=== PATIENT | male | born 1950 | race Caucasian/White ===

== ENCOUNTER 2017-10-03 13:30 | Inpatient (IN) | payer MEDICARE, OTHER ==
[~2017-10-03] VITALS: Ht 175.3 cm; Wt 80.8 kg
[2017-10-03 16:44] VITALS: BP 128/70
[2017-10-03] MEDS: oxyCODONE/APAP 5/325MG (PERCOCET 5) TABLET PO PRN (16:57)
[2017-10-03] MEDS: IBUPROFEN 800 MG (MOTRIN) TAB PO SCH (16:57)
[2017-10-03 18:24] VITALS: BP 127/68
[2017-10-03] MEDS ORDERED: BISACODYL 5 MG (DULCOLAX) TABLET PO PRN (19:30)
[2017-10-03] MEDS ORDERED: inSUlin ASPART (NovoLOG) 1 UNIT/0.01 ML (CHARGE PER UNIT) SC SCH (19:30)
--- NOTE | 2017-10-03 20:14 | PM&R Post Admission Assessment ---
Post Admission Physician Asses The preadmission screen agrees with the post admission assessment that the patient is a good candidate for inpatient rehabilitation. The patient will have a comprehensive program of inpatient rehabilitation with a goal of maximizing level of functional independence prior to discharge home with spouse and C. The patient will have PT/OT ninety minutes per day, each discipline, five days a week for 2 weeks for gait, strengthening, conditioning, balance, ADLs, any patient/family/caregiver training as necessary. Speech therapy to do cognitive assessment and treat as indicated. Rehabilitation nursing to assist with bowel, bladder, skin, wound care, medication administration, pain management. Solar Process Engineer to assist with discharge planning, community reentry. SCD's for DVT prophylaxis. He appears to be well motivated to participate in three hours of therapy a day. He should be able to tolerate three hours of therapy a day from a medical standpoint. He should benefit from the three hours of therapy a day. He has a reasonable discharge plan, reasonable discharge rehabilitation goals and a supportive family. He has various comorbidities that need to be closely monitored with medications and treatments adjusted on a daily basis as needed. 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 Risks for this patient include: 1. Fall 2. Fracture 3. DVT 4. Pulmonary embolism 5. Recurrent stroke 6. Skin breakdown 7. Contractures 8. Poorly controlled Knee pain 9. Urinary retention 10. UTI 11. Respiratory infection 12. Aspiration 13.Poorly controlled HTN 14. Poorly controlled DM 15. Worsening back pain 16. Recurrent seizure Estimated Length of Stay: 17 days C CODE 16 Etiologic DX Acute pain rt knee s/p fall with tendinitis Quads Prognosis: Rehab prognosis appears good for goal of discharge home with spouse modified independent to supervision for ADLs and mobility skills. MELANIE AGUILA MD Oct 03, 2017 20:14
[2017-10-03] MEDS: SENNA W/DOCUSATE (SENOKOT S) TABLET PO SCH (21:14)
[2017-10-03] MEDS: OXcarbazepine (TRILEPTAL) 300 MG TAB PO SCH (21:15)
[2017-10-03] MEDS: TERAZOSIN 2 MG (HYTRIN) CAP PO SCH (21:15)
[2017-10-03] MEDS: inSUlin ASPART (NovoLOG) 1 UNIT/0.01 ML (CHARGE PER UNIT) SC SCH (21:15)
[2017-10-03] MEDS: FAMOTIDINE 20 MG (PEPCID) TABLET PO SCH (21:15)
[2017-10-03] MEDS: inSUlin DETERMIR 1 UNIT/0.01 ML (LEVEMIR) CHARGE PER UNIT SQ SCH (21:16)
--- NOTE | 2017-10-04 01:20 | HISTORY AND PHYSICAL ---
DATE OF SERVICE: CHIEF COMPLAINT: Difficulty with walking. 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 The patient was admitted to [facility] in [place]. On 09/28/2017, the patient was seen by the orthopedist. An MRI of the knee was going to be done, but unfortunately the patient had a history of a right total knee replacement. A CT of the knee revealed degenerative joint disease of the left knee and well aligned Rt TKR hardware. The impression was quadriceps strain. The patient was provided with a knee immobilizer and weightbearing as tolerated. The patient had a decline in his functional independence due to all this and is referred to inpatient rehabilitation unit at [facility] for ongoing care. He lives with his spouse in [place]. His PCP is Dr. Jesus Parks in [place]. Currently, he is max assist of 2 for transfer from wheelchair to bed. He has a knee immobilizer on right, but reports difficulty bearing increased weight on his left. He is modified independent for eating and grooming, min assist for upper body dressing, dependent for the lower body dressing and bathing. PAST MEDICAL HISTORY: Left CVA with right hemiparesis, remote seizure disorder, controlled with meds, diabetes mellitus type 2 with long-term use of insulin, essential hypertension, ankylosing spondylitis, on Remicade treatment. PAST SURGICAL HISTORY: Right total knee replacement. ALLERGIES: PENICILLIN. FAMILY HISTORY: Noncontributory. SOCIAL HISTORY: Retired, lives with spouse.Had worked for a [employer] firm prior to stroke REVIEW OF SYSTEMS: Ten-point review of systems significant for weakness on the right, pain right knee with weightbearing, constipation. MEDICATIONS: Allopurinol 100 mg p.o. daily, Plavix 75 mg p.o. daily, Cozaar 50 mg p.o. daily, amlodipine 10 mg p.o. daily, Levemir insulin 7 units subcutaneously each day at bedtime, Humalog t.i.d. a.c., Tagamet 800 mg p.o. every day, Lamictal one tablet p.o. b.i.d., losartan 50 mg p.o. daily, Trileptal 150 mg 2 tablets p.o. b.i.d., Remicade IV infusion every 8 weeks, Hytrin 4 mg at bedtime, ibuprofen 800 mg p.o. t.i.d. with meals, Percocet generic 5/325 one tablet p.o. q. 4 hours p.r.n. pain. PHYSICAL EXAMINATION: GENERAL: Significant for a male appearing his stated age, alert and oriented, in no acute distress. VITAL SIGNS: Within normal limits. He is afebrile. HEENT: Vision, speech, hearing grossly intact. No oral lesion is noted. NECK: Supple without mass. HEART: Regular rhythm. CHEST: Clear. ABDOMEN: Soft, nontender. Bowel sounds present. EXTREMITIES: Right knee is in immobilizer. He has a mild right hemiparesis. MUSCULOSKELETAL: He has functional passive range of motion on the left. NEUROLOGIC: Functional cognition as per speech therapy. Sensation grossly intact to touch. He has mild right hemiparesis. Strength is good left upper limb, left lower limb he has good minus strength. IMPRESSION: 1. Ambulatory dysfunction secondary to late effects of stroke from 2001. 2. Fall with right quadriceps sprain, treated with a knee immobilizer, and weightbearing as tolerated with prior RT TKR DR Dimas [facility] approx 2007. 3. DJD Left knee with CT scan revealing tricompartmental disease. 4. Seizure disorder, controlled with medication. 5. Type 2 diabetes mellitus with long-term use of insulin. 6. Hypertension, controlled with medication. 7. Ankylosing spondylitis, on Remicade treatment IV as per above. 8.Constipation meds adjusted PLAN: The patient will have a comprehensive program of inpatient rehabilitation with goal of maximizing level of functional independence prior to discharge home with spouse, taking into consideration his multiple comorbidities and most recent injury, associated with knee immobilizer and pain control issues. The patient will have PT, OT 90 minutes per day each discipline, 5 days a week for 14 days for gait, strengthening, conditioning, balance, ADLs, any patient family caregiver training necessary, adaptive equipment training necessary. Speech therapy to do cognitive assessment and treat as indicated. Rehabilitation nursing to assist with bowel, bladder, skin care, medication administration, pain management. reference services head for discharge planning, community reentry. Monitor Accu-Cheks q.i.d., before meals and at bedtime and adjust medication as necessary. Therapy with cardiac and fall precautions. Consult Dr. Serrano to assist with medical management for this out-of-town patient. Routine admission labs. ESTIMATED LENGTH OF STAY: 14 days. PROGNOSIS: Rehab prognosis is good for goal of maximizing level of functional independence prior to discharge home with spouse hopefully at prior level of function taking into consideration his right knee orthopedic injury and use of knee immobilizer and pain control. DIET: Carb consistent. CODE STATUS: Full code. FOLLOWUP: With his PCP upon discharge as well as his local orthopedist. Job ID: [id number] DocumentID: [id number] Dictated Date: 10/03/2017 20:26:01 Biochemistry Technician Date: 10/04/2017 01:19:50 Dictated By: MELANIE AGUILA MD MTDD
[2017-10-04 04:39] VITALS: BP 130/70
[2017-10-04] MEDS: inSUlin ASPART (NovoLOG) 1 UNIT/0.01 ML (CHARGE PER UNIT) SC SCH ×4 (05:59→20:49)
[2017-10-04] MEDS: IBUPROFEN 800 MG (MOTRIN) TAB PO SCH ×3 (06:00→17:09)
[2017-10-04 07:14] LABS: BASOPHILS % (AUTO) 1 % (0-10); EOSINOPHILS # (AUTO) 0.1 10^3/uL (0.0-0.3); EOSINOPHILS % (AUTO) 2 % (0-10); HEMATOCRIT 38 % (40-54); HEMOGLOBIN 13.4 G/DL (13.3-17.7); LYMPHOCYTES # (AUTO) 1.8 X 10^3 (1.0-4.0); LYMPHOCYTES % (AUTO) 27 % (12-44); MEAN CORPUSCULAR HEMOGLOBIN 32 PG (25-34); MEAN CORPUSCULAR HGB CONC 35 G/DL (32-36); MEAN CORPUSCULAR VOLUME 89 FL (80-99); MEAN PLATELET VOLUME 9.7 FL (7.4-10.4); MONOCYTES # (AUTO) 0.6 X 10^3 (0.0-1.0); MONOCYTES % (AUTO) 9 % (0-12); NEUTROPHILS # (AUTO) 4.1 X 10^3 (1.8-7.8); NEUTROPHILS % (AUTO) 62 % (42-75); PLATELET COUNT 204 10^3/uL (130-400); RED BLOOD COUNT 4.26 10^6/uL (4.35-5.85); RED CELL DISTRIBUTION WIDTH 11.8 % (10.0-14.5); WHITE BLOOD COUNT 6.6 10^3/uL (4.3-11.0)
[2017-10-04 07:37] LABS: CREATININE SERUM 1.54 MG/DL (0.60-1.30)
[2017-10-04 07:38] LABS: ALBUMIN 3.3 GM/DL (3.2-4.5); BILIRUBIN,TOTAL 0.7 MG/DL (0.1-1.0); CALCIUM 8.9 MG/DL (8.5-10.1); TOTAL PROTEIN 6.6 GM/DL (6.4-8.2)
[2017-10-04] MEDS: ALLOPURINOL 100 MG (ZYLOPRIM) TAB PO SCH (08:09)
[2017-10-04] MEDS: oxyCODONE/APAP 5/325MG (PERCOCET 5) TABLET PO PRN ×4 (08:09→22:51)
[2017-10-04] MEDS: CLOPIDOGREL 75 MG (PLAVIX) TABLET PO SCH (08:09)
[2017-10-04] MEDS: amLODIPine 10 MG (NORVASC) TAB PO SCH (08:09)
[2017-10-04] MEDS: FAMOTIDINE 20 MG (PEPCID) TABLET PO SCH ×2 (08:09→20:58)
[2017-10-04] MEDS: SENNA W/DOCUSATE (SENOKOT S) TABLET PO SCH ×2 (08:09→20:49)
[2017-10-04] MEDS: OXcarbazepine (TRILEPTAL) 300 MG TAB PO SCH ×2 (08:09→20:50)
[2017-10-04] MEDS: LOSARTAN 50 MG (COZAAR) TAB PO SCH (08:09)
--- NOTE | 2017-10-04 08:47 | Consultation ---
History of Present Illness History of Present Illness Patient Consulted On(allen/time) 10/04/17 08:43 Time Seen by Provider: 08:45 History of Present Illness patient previously had a stroke on his right side. 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 Was in the hospital in [facility]. patient had a quadriceps strain. Patient previously had a right knee replacement. Patient getting weak and unable to take care of himself. patient lives in [place] with his Allergies and Home Medications Allergies Coded Allergies: Penicillins (Verified Allergy, Unknown, 10/03/17) Past Mpxpegv-Ockkxb-Bjsxjo Hx Patient Social History Smoking Status: Current Everyday Smoker Type Used: Cigars Recent Foreign Travel: No Contact w/Someone Who Travel: No Recent Infectious Disease Expo: No Immunizations Up To Date Date of Pneumonia Vaccine: Aug 23, 2016 Date of Influenza Vaccine: Jun 29, 2017 Seasonal Allergies Seasonal Allergies: No Surgeries History of Surgeries: Yes (Bilateral hips; Right knee, Right pinky finger) Respiratory History of Respiratory Disorde: Yes Respiratory Disorders: Sleep Apnea Currently Using CPAP: Yes Currently Using BIPAP: No Cardiovascular History of Cardiac Disorders: Yes Neurological History of Neurological Disord: Yes Genitourinary History of Genitourinary Disor: Yes (Decreased kidney function) Gastrointestinal History of Gastrointestinal Di: Yes (Constipation recently ) Musculoskeletal History of Musculoskeletal Dis: Yes Musculoskeletal Disorders: Arthritis, Rheumatoid Arthritis, Contracture Endocrine History of Endocrine Disorders: Yes HEENT History of HEENT Disorders: No (Wears glasses) Cancer History of Cancer: No Psychosocial History of Psychiatric Problem: No Review of Systems-General Constitutional: weakness EENTM: no symptoms reported Respiratory: no symptoms reported Cardiovascular: no symptoms reported Gastrointestinal: no symptoms reported Physical Exam-General Problems Physical Exam Vital Signs Vital Sign - Last 12Hours 10/03/17 16:44 Temp 97.5 Pulse 64 Resp 16 B/P (MAP) 128/70 (89) Pulse Ox 97 O2 Delivery Room Air Capillary Refill : Less Than 3 Seconds General Appearance: WD/WN Eyes: Bilateral Eye Normal Inspection HEENT: normal ENT inspection Neck: non-tender, full range of motion Respiratory: chest non-tender, lungs clear, normal breath sounds, no respiratory distress, no accessory muscle use Gastrointestinal: non tender, soft Assessment/Plan Assessment/Plan Admission Diagnosis/Plan common quadriceps tendon sprain. Previous CVA. Diabetes. Renal insufficiency Clinical Quality Measures DVT/VTE Risk/Contraindication: Risk Factor Score Per Nursin RFS Level Per Nursing on Admit: 4+=Very High WILLIAN NAGEL DO Oct 04, 2017 08:47
--- NOTE | 2017-10-04 09:03 | Physical Therapy Evaluation ---
PT Evaluation-General Medical Diagnosis Admission Date Oct 03, 2017 at 16:15 Medical Diagnosis: R knee strain Onset Date: Sep 28, 2017 Therapy Diagnosis Therapy Diagnosis: Poor bed mobility, functional activity skill, and increased pain Height/Weight Height (Feet): 5 Height (Inches): 9.00 Weight (Pounds): 187 Weight (Ounces): 0.0 Precautions Precautions/Isolations: Fall Prevention, Standard Precautions Weight Bear Status Right Lower Extremity: Right Weight Bearing/Tolerated Left Lower Extremity: Left Full Weight Bearing Referral Physician: Simeon Reason for Referral: Evaluation/Treatment Medical History Pertinent Medical History: Arthritis, CVA, DM, HTN Additional Medical History Left CVA with right hemiparesis, remote seizure disorder, controlled with meds, diabetes mellitus type 2 with long-term use of insulin, essential hypertension, ankylosing spondylitis, on Remicade treatment. Reviewed History: Yes Social History Home: Single Level Current Living Status: Spouse Entry Into Home: Stairs Without Railing (Small step into home) PT Steps Into Home: 1 PT Steps Inside Home: 0 One small step into home Prior/Core FIM Prior Level of Function Functional [place] Measure 0=Not Assessed/NA 4=Minimal Assistance 1=Total Assistance 5=Supervision or Setup 2=Maximal Assistance 6=Modified [place] 3=Moderate Assistance 7=Complete [place] Bed Mobility: 7 Transfers (B,C,W/C) (FIM): 7 Gait: 7 Locomotion: 7 PT Evaluation-Current Subjective Pt is laying in bed pre tx. Pt c/o pain in the R knee. Pain Numeric Pain Scale: 8 Location: Right Location Body Site: Knee Pt/Family Goals Return to home without functional limitation Objective Patient Orientation: Person, Confused (Pt describes living situation and occurrence of injury with confusion), Place Problem Solving: Fair Attachments: Knee Immobilizer ROM/Strength ROM Lower Extremities NT Strenght Lower Extremities LLE: 4/5 in hip flexion, 5/5 in hip abduction and adduction, knee flexion and extension, and ankle dorsiflexion RLE: Not assessed Integumentary/Posture Posture Normal for age Neuromuscular (Tone, Coordination, Reflexes) NT Transfers Functional [place] Measure 0=Not Assessed/NA 4=Minimal Assistance 1=Total Assistance 5=Supervision or Setup 2=Maximal Assistance 6=Modified [place] 3=Moderate Assistance 7=Complete IndependenceIRFPAI Quality Coding Scale 6 Independent with activity with or without an assistive device 5 Patient requires set up or clean up by helper. Patient completes activity by themselves 4 Supervision or touching assist (CGA). [place] provide cues , steadying assist 3 The helper provides less than half the effort to complete the activity 2 The helper provides more than half the effort to complete the activity 1 Dependent. The helper does all the effort to complete an activity 7 Patient refused to complete or attempt activity 9 The patient did not perform the activity before the current illness or injury 88 Not attempted due to Medical conditions or safety concerns Transfers (B, C, W/C) (FIM): 2 Scootin Rollin Roll Left to Right (QC): 2 Supine to/from Sit: 2 Sit to/from Stand: 2 bed t/f WC(FIM only if WC use): 4 Sit to Lying (QC): 2 Lying to Sitting/Side of Bed(Q: 2 Sit to Stand (QC): 2 Chair/Iul-ta-Uogyx Xfer(QC): 3 Car Transfer (QC): 2 Gait Does the Patient Walk?: Yes Mode of Locomotion: Walk Anticipated Mode of Locomotion: Walk Gait (FIM): 2 Distance (FIM): 4=938-83 ft Walk 10 feet (QC): 4 Walk 50 ft with 2 Turns(QC): 4 Walk 150 ft (QC): 88 Walking 10ft/uneven surface-QC: 88 Distance: 50 feet Gait Level of Assist: 4 Gait Persons Needed: 1 Gait Assistive Device: FWW (Arm rest for RUE) Comments/Gait Description Patient did not bear much weight on right leg. Slow, antalgic ambulation. Wheelchair Training Does the Pt Use a Wheelchair?: Yes Wheelchair (FIM): 2 Wheelchair Distance (FIM): 8=328-68 ft Distance: 100 feet Wheelchair Level of Assist: 4 Wheel 50 ft with 2 turns (QC): 3 Wheel 150 ft (QC): 88 Type of Wheelchair: Manual Needs assist with steering Stairs 1 Step (curb) (QC): 88 4 Steps (QC): 88 If not tested on admit;explain Due to pt in knee immobilizer on RLE and safety concerns, stairs were not attempted. Balance Sitting Static: Normal Sitting Dynamic: Normal Standing Static: Fair Standing Dynamic: Fair Picking up an Object (QC): 88 Assessment/Needs Pt c/o increased pain on the RLE during movement and weight-bearing. Pt requires max A during all bed mobility. Pt able to walk 50 feet using FWW with armrest for RUE with CGA. Rehab Potential: Fair PT Short Term Goals Short Term Goals Time Frame: Oct 11, 2017 Transfers (B,C,W/C) (FIM): 3 Gait (FIM): 2 Distance (FIM): 1=823-38 ft Gait Distance Comment: 100 feet with FWW and armrest for RUE Gait Level of Assist: 4 Gait Assistive Device: Walker Platform Wheelchair (FIM): 3 Wheelchair distance (FIM): 3=150 ft Wheelchair Distance: 150 feet Wheelchair Level of Assist: 5 Stairs (FIM): 1 # of Steps: 1 Stairs Level of Assist: 4 PT Retail Delivery Driver Goals Retail Delivery Driver Goals PT Retail Delivery Driver Goals Time Frame: Oct 25, 2017 Transfers (B,C,W/C) (FIM): 5 Sit to Lying (QC): 4 Lying-Sitting on Side/Bed(QC): 4 Sit to Stand (QC): 4 Rollin Roll Left to Right (QC): 4 Chair/Mfi-fi-Qrlxa Xfer(QC): 4 Car Transfer (QC): 4 Does the Patient Walk: Yes Gait (FIM): 5 Distance: 200 feet Walk 10 feet (QC): 4 Walk 10ft-Uneven Surface(QC): 4 Walk 50ft with 2 Turns (QC): 4 Walk 150 ft (QC): 4 Gait Level of Assist: 5 Gait Assistive Device: Walker Platform Does the Pt use WC or Scooter?: Yes Wheelchair (FIM): 6 Distance: 200 feet Wheelchair Level of Assist: 6 Wheel 50 feet with 2 turns (QC: 6 Stairs (FIM): 2 # of Steps: 4 1 Step (curb) (QC): 4 4 Steps (QC): 4 12 Steps (QC): 88 Stairs Level Of Assist: 5 Picking up an Object (QC): 88 PT Plan Problem List Problem List: Activity Tolerance, Functional Strength, Safety, Balance, Gait, Transfer, Bed Mobility, ROM Treatment/Plan Treatment Plan: Continue Plan of Care Treatment Plan: Bed Mobility, Concurrent Therapy, Education, Functional Activity Gregorio, Functional Strength, Group Therapy, Gait, Safety, Therapeutic Exercise, Transfers Treatment Duration: Oct 25, 2017 Frequency: At least 5 of 7 days/Wk (IRF) Estimated Hrs Per Day: 1.5 hours per day Patient and/or Family Agrees t: Yes Safety Risks/Education Patient Education: Gait Training, Transfer Techniques, Steps, Correct Positioning, W/C Management, Disease Process, Safety Issues Teaching Recipient: Patient Teaching Methods: Demonstration, Discussion Response to Teaching: Verbalize Understanding, Return Demonstration, Reinforcement Needed Discharge Recommendations Plan Patient will perform bed mobility and transfer training, balance and endurance training, functional strengthening, stair training, gait training, and education , to improve functional mobility and independence at home. Therapy D/C Recommendations: Home w/ Family Support Equpiment Recommendations-D/C: Front Wheeled Walker (armrest for RUE) Barriers to Progress History of CVA affecting the RUE and RLE Time/GCodes Time In: 800 Time Out: 900 Total Billed Treatment Time: 60 Total Billed Treatment 1 visit 30 min EVM GT 15' FA 15' JACKIE GRIDER PT Oct 04, 2017 09:03
--- NOTE | 2017-10-04 09:42 | ST Cognitive Linguistic Eval ---
Speech Evaluation-General Medical Diagnosis R knee strain Onset Date: Oct 04, 2017 Therapy Diagnosis Therapy Diagnosis: Moderate Expressive Aphasia Precautions Precautions/Isolations: Fall Prevention, Standard Precautions Referral Referring Physician: Dr. Vishnu Hendrix Reason for Referral: Evaluation/Treatment Cognitive, Speech, and Language Evaluation Medical History Pertinent Medical History: Arthritis, CVA, DM, HTN Reviewed History: Yes Speech PLF-Current Status Prior Level of Function The patient denied any new onset of speech, language, and cognitive deficits. Per patient, he experiences difficulty "getting the words out" which has improved each year since his CVA (Left MCA) in 2002. Subjective The patient greeted the clinician appropriately and was agreeable to participation in the speech, language, and cognitive evaluation. Language Eval: Auditory Comprehends Simple Yes/No Ques: Functional Indent/Objects Multiple Wills: Functional Ident/Pics in Multiple Wills: Functional Follows 1-Step Commands: Functional Follows Complex Directions: Functional Follows General Conversations: Functional (The patient does require intermittent redirection to conversational topics.) Language Eval: Verbal Language Completes Spontaneous Greeting: Functional Produces Auto, Serial Info: Functional Imitates Simple Words/Phrases: Mild Word Finding: Moderate Requests Basic Needs: Functional States Basic Personal Info: Functional Expresses Complex Ideas: Functional (The patient requires increased response time throughout conversational exchanges.) Cognitive Patient Orientation The patient is independently oriented to month, day of week, date, and year. Objective Cognitive Domain Attention: Mild Memory: WNL Problem Solving: Mild Objective Oral Motor/Speech Production The patient displays mildly imprecise articulation correlating to reduced right sided labial strength and range of motion. The patient remains 100% intelligible in known and unknown contexts. Impression The patient demonstrates mild to moderate expressive aphasia, most notably in the areas of word-finding. Additionally, mild dysarthria (most consistent with flaccid-type) is displayed with mildly imprecise articulation. While the patient's CVA was over 14 years ago, the patient remains motivated for improvement. Due to this motivation, the speech pathologist has agreed to continue speech and language therapy in attempts to improve word-finding skills and strategies. Communication/Social Cognition Comprehension: 5 Expression: 4 Social Interaction: 5 Problem Solvin Memory: 6 Speech Patient Assess Expression of Ideas/Wants: Exhibits (3) Understanding Vebal Content: Usually Understands (3) Brief Interview-Mental Status: Yes Repetition of Three Words: Three (3) Temporal Orientation: Year: Correct (3) Temporal Orientation: Month: Accurate within 5 days(2) Temporal Orientation: Day: Correct (1) Recall : Wear to say "Sock": Yes, no cue required (2) Recall : Color: Yes, no cue required (2) Recall : Bed: Yes, no cue required (2) Speech Short Term Goals Short Term Goals Short Term Goals 1. The patient will recall and demonstrate three word-finding strategies with mild clinician verbal prompting. 2. The patient will display 80% accuracy with structured word-finding tasks with mild clinician verbal prompting. Time Frame-STG: Ten Days Speech Alf Goals Alf Goals 1. The patient will demonstrate improved expressive communication for increased function and safety with ADL's in the least restrictive setting. Time Frame: Two Weeks Comprehension: 5 Expression: 5 Social Interaction: 6 Problem Solvin Memory: 6 Speech-Plan Treatment Plan Speech Therapy Treatment Plan: Continue Plan of Care Continue skilled speech pathology to target functional word-finding strategies. Treatment Duration: Oct 18, 2017 Frequency: Modified Program (IRF) (Four to five times per day.) Estimated Hrs Per Day: .5 hour per day Rehab Potential: Fair Safety Risks/Education Teaching Recipient: Patient Teaching Methods: Discussion Response to Teaching: Verbalize Understanding Education Topics Provided: Results, Recommendations, Plan of Care Time Speech Therapy Time In: 09:00 Speech Therapy Time Out: 09:15 Total Billed Time: 15 Billed Treatment Time 1 ZELALEM YOUNG Oct 04, 2017 09:42
--- NOTE | 2017-10-04 10:24 | PM & R (SOAP) Progress Note ---
Subjective Time Seen by Provider: 08:15 Subjective/Events-last exam Patient was seen in his rrom this AM Patient Mod to max assist for transfers Slept Ok and adjusting to unit Meds adjusted for constipaion Meds adjusted for DM Current Labs noted Review of Systems Musculoskeletal: leg pain Neurological: Weakness Objective Exam Last Set of Vital Signs Vital Signs Date Time Temp Pulse Resp B/P (MAP) Pulse Ox O2 Delivery O2 Flow Rate FiO2 10/04/17 09:00 Room Air 10/04/17 04:39 97.2 63 16 130/70 (90) 94 Capillary Refill : Less Than 3 Seconds I&O Intake and Output 10/04/17 00:00 Intake Total 222 ml Output Total 300 ml Balance -78 ml Intake Oral 222 ml Output Urine Total 300 ml Daily Weight Change No General: Alert, Oriented X3, Cooperative, No Acute Distress HEENT: Atraumatic, PERRLA, EOMI, Mucous Memb Moist/[place], Other (mild expressive aphasia) Neck: Supple, No JVD Lungs: Clear to Auscultation Heart: Regular Rate Abdomen: Normal Bowel Sounds, Soft, No Tenderness Extremities: No Edema Neuro: Other (Mild rt HP has antigravity strength RT knee in immobilizer) Results Lab Laboratory Tests 10/03/17 16:49: Glucometer 219H 10/03/17 20:40: Glucometer 356H 10/04/17 05:50: Glucometer 222H 10/04/17 06:36: White Blood Count 6.6, Red Blood Count 4.26L, Hemoglobin 13.4, Hematocrit 38L, Mean Corpuscular Volume 89, Mean Corpuscular Hemoglobin 32, Mean Corpuscular Hemoglobin Concent 35, Red Cell Distribution Width 11.8, Platelet Count 204, Mean Platelet Volume 9.7, Neutrophils (%) (Auto) 62, Lymphocytes (%) (Auto) 27, Monocytes (%) (Auto) 9, Eosinophils (%) (Auto) 2, Basophils (%) (Auto) 1, Neutrophils # (Auto) 4.1, Lymphocytes # (Auto) 1.8, Monocytes # (Auto) 0.6, Eosinophils # (Auto) 0.1, Basophils # (Auto) 0.0, Sodium Level 135, Potassium Level 4.0, Chloride Level 102, Carbon Dioxide Level 22, Anion Gap 11, Blood Urea Nitrogen 36H, Creatinine 1.54H, Estimat Glomerular Filtration Rate 46, BUN/ Creatinine Ratio 23, Glucose Level 213H, Calcium Level 8.9, Total Bilirubin 0.7 , Aspartate Amino Transf (AST/SGOT) 20, Alanine Aminotransferase (ALT/SGPT) 16, Alkaline Phosphatase 139H, Total Protein 6.6, Albumin 3.3 Assessment/Plan Assessment Fall with Knee pain Quadriceps strain Prior RT TKR DR Dimas [facility] approx 2008 DJD Left Knee 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
--- NOTE | 2017-10-04 11:27 | Occupational Therapy Eval ---
OT Evaluation-General/PLF Medical Diagnosis Admission Date Oct 03, 2017 at 16:15 Medical Diagnosis: R knee strain Onset Date: Sep 28, 2017 Therapy Diagnosis Therapy Diagnosis: decr self care, decr funct mob, decr R UE funct, decr act reena, decr coord R Height/Weight Height (Feet): 5 Height (Inches): 9.00 Weight (Pounds): 187 Weight (Ounces): 0.0 Precautions Precautions/Isolations: Fall Prevention, Standard Precautions Safety Interventions: None Weight Bear Status Weight Bearing Restriction: Weight Bearing/Tolerated Location Restriction: R LE Referral Physician: Simeon Referral Reason: Evaluation/Treatment Medical History Pertinent Medical History: Arthritis, CVA (2011), DM, HTN, Renal Insufficiency , Smoking Additional Medical History Remote L CVA with R sided weakness 2011. Seizure disorder. Ankylosing spondylitis. Crohn's. ISSA. Bilat total hip replacements, R TKA. CVD Current History Pt was working out with program trainer and R knee gave out. Dx with quadriceps sprain. Has a knee immobilizer that he can wear Social History Home: Single Level Current Living Status: Spouse Entry Into Home: Stairs Without Railing (Small step into home) Steps Into Home: 1 Steps Inside Home: 0 ADL-Prior Level of Function ADL PLOF Comments Pt reported that he was previously able to manage all of his basic ADLs. He used adapted shoe laces but was able to cut food (except steak), feed himself, shower, toilet, dress and didn't use an AD for walking. He still drives. 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 Pain rated 3/10 in R knee and not described. He indicated that he generally asks for pain meds when it gets to 6-7 /10 Appearance Alert, cooperative. Reported he is reluctant to move R leg and stand due to fear of pain. Mental Status/Objective Patient Orientation: Person, Place, Time, Situation Expression: 4 (A little difficult to understand at times) Social Interaction: 5 Problem Solvin Current Glasses/Contacts: Yes Hearing Aids: No Dentures/Partials: Yes (has upper and lower but only wears upper) Hand Dominance: Right Upper Extremity ROM L UE WFL. R UE limited to approx 90 degrees sh flex/abd, WFL elbow flex and ext , pron/sup in mid range. Does not actively use R hand but can pry fingers apart with L hand to hold items Upper Extremity Strength L UE 4+/5. R UE not tested. ADL-Treatment ADL-Current Pt used urinal but spilled it on clothing. Reported he hasn't had BM since Monday and used bedpan Functional [place] Measure 0=Not Assessed/NA 4=Minimal Assistance 1=Total Assistance 5=Supervision or Setup 2=Maximal Assistance 6=Modified [place] 3=Moderate Assistance 7=Complete IndependenceIRFPAI Quality Coding Scale 6 Independent with activity with or without an assistive device 5 Patient requires set up or clean up by helper. Patient completes activity by themselves 4 Supervision or touching assist (CGA). [place] provide cues , steadying assist 3 The helper provides less than half the effort to complete the activity 2 The helper provides more than half the effort to complete the activity 1 Dependent. The helper does all the effort to complete an activity 7 Patient refused to complete or attempt activity 9 The patient did not perform the activity before the current illness or injury 88 Not attempted due to Medical conditions or safety concerns Eating (FIM): 6 (Pt reported that he was able to open packages and feed himself without difficulty. There are some foods that he cannot eat without dentures.) Eating (QC): 6 Grooming (FIM): 5 (Able to soak teeth and rinse mouth with setup. Can brush hair, wash face and hands. He said he usually goes to [employer] in [place] for a shave.) Oral Hygiene (QC): 5 Bathing (FIM): 3 (60% sponge bath) Bathing Location: L Arm, R Arm, L Upper Leg, R Upper Leg, Chest, Abdomen Shower/Bathe Self (QC): 3 Upper Body Dressing (FIM): 5 (Setup to doff/don shirt) Upper Body Dressing (QC): 5 Lower Body Dressing (FIM): 1 (Able to slip shoes off and on with setup. Help to get pants over R foot and L foot but he was then able to pull them up to thighs. Two person max assist sit to stand to pull pants up, once standing with FWW with platform) Lower Body Dressing (QC): 1 On/Off Footwear (QC): 5 Pt was left up in w/c (added cushion), call light and phone present, all needs met. Education OT Patient Education: Modified ADL techniques, Purpose of tx/functional activities, Rehab process, Safety issues, Transfer techniques Teaching Recipient: Patient Teaching Methods: Demonstration, Discussion Response to Teaching: Verbalize Understanding, Return Demonstration, Reinforcement Needed OT Short Term Goals Short Term Goals Time Frame: Oct 13, 2017 Toileting(FIM): 3 Toilet/Commode Transfer(FIM): 3 Shower Transfer(FIM): 3 Additional Short Term Goals: 1-Demonstrate ADL Tasks, 2-Verbalize Understanding , 3-ImproveStrength/Gregorio 1=Demonstrate adherence to instructed precautions during ADL tasks. 2=Patient will verbalize/demonstrate understanding of assistive devices/ modifications for ADL. 3=Patient will improve strength/tolerance for activity to enable patient to perform ADL's. OT Chcf Goals Cosmetic Surgeon Goals Time Frame: Oct 25, 2017 Eating (FIM): 6 Eating (QC): 6 Groomin Oral Hygiene (QC): 6 Bathing(FIM): 6 Shower/Bathe Self (QC): 6 Upper Body Dressing(FIM): 6 Upper Body Dressing (QC): 6 Lower Body Dressing(FIM): 6 Lower Body Dressing (QC): 6 On/Off Footwear (QC): 6 Toileting(FIM): 6 Toileting Hygiene (QC): 6 Transfers (B,C,W/C) (FIM): 6 Toilet/Commode Transfer(FIM): 6 Toilet/Commode Transfer (QC): 6 Shower Transfer(FIM): 6 Comprehension(FIM): 5 Expression (FIM): 5 Social Interaction(FIM): 6 Problem Solving(FIM): 5 Memory(FIM): 6 Additional Goals: 1-Demonstrate ADL Tasks, 2-Verbalize Understanding, 3- ImproveStrength/Gregorio 1=Demonstrate adherence to instructed precautions during ADL tasks. 2=Patient will verbalize/demonstrate understanding of assistive devices/ modifications for ADL. 3=Patient will improve strength/tolerance for activity to enable patient to perform ADL's. OT Education/Plan Problem List/Assessment Assessment: Decreased Activ Tolerance, Decreased Safety Aware, Decreased UE Strength, Dependent Transfers, Impaired Bed Mobility, Impaired Coordination (R UE), Impaired Funct Balance, Impaired Self-Care Skills, Restricted Funct UE ROM Pt would benefit from skilled OT to increase his independence in basic self care to allow him to safely return to his home to live with his and to decrease caregiver burden. Discharge Recommendations Plan/Recommendations: Continue POC Barriers to Progress fear of pain Target Placement home Treatment Plan/Plan of Care Treatment,Training & Education: Yes Patient would benefit from OT for education, treatment and training to promote independence in ADL's, mobility, safety and/or upper extremity function for ADL' s. Plan of Care: ADL Retraining, Functional Mobility, Group Exercise/Act as Ind ( education, exercise, act tolerance, problem solving, funct mobility, communication, socialization), UE Funct Exercise/Act, UE Neuromus Re-Ed/Coord Treatment Duration: Oct 25, 2017 Frequency: At least 5 of 7 days/Wk (IRF) Estimated Hrs Per Day: 1.5 hours per day (1-25 to 1.5) Agreement: Yes Rehab Potential: Good Time/GCodes Start Time: 09:45 Stop Time: 11:03 Total Time Billed (hr/min): 78 Billed Treatment Time visit, evaluation high intensity 18 minutes, ADL 60 minutes TERE DEL CASTILLO OT Oct 04, 2017 11:27
[2017-10-04] MEDS ORDERED: CLOP75TA69 PO (13:32)
[2017-10-04] MEDS ORDERED: OXCA150T PO (13:32)
[2017-10-04] MEDS ORDERED: INSU100V5 SQ (13:32)
[2017-10-04] MEDS ORDERED: AMLO10TA2 PO (13:32)
[2017-10-04] MEDS ORDERED: INFL100V IV (13:32)
[2017-10-04] MEDS ORDERED: CIME800T63 PO (13:32)
[2017-10-04] MEDS ORDERED: LOSA50TA36 PO (13:32)
[2017-10-04] MEDS ORDERED: LAMO100T PO (13:32)
[2017-10-04] MEDS ORDERED: ALLO100T PO (13:32)
[2017-10-04] MEDS ORDERED: TERA2CAP4 PO (13:32)
--- NOTE | 2017-10-04 15:06 | Therapy Group Daily Note ---
Therapy Daily Group Note Patient Education Topic Other List Below (memory strategies) Exercises LE Seated Exercise, UE Exercise Other/Notes Pt transported via w/c [facility] OT/PT group consisted of introductions (name, place living, worst forgotten moment), socialization, UE/LE seated exercises, memory strategy education, memory activity, ARU description and expectations. Pt appropriately introduced self. Pt then was able to complete UE/LE seated exercises, difficulty moving R UE/LE during exercises. Pt verbalized understanding of visual strategies for memory and gave a description of what he used for a memory strategy at home. Pt then participated in memory activity and was able to find 1 match. Pt transported back to room via w/c and transferred back to bed. Call light/phone in reach. All needs met in room. Start Time: 13:00 Stop Time: 14:20 Total Billed Treatment Time: 80 Total Billed Treatment 1-GRP RU BURGESS Oct 04, 2017 15:06
[2017-10-04 18:35] VITALS: BP 146/76
[2017-10-04] MEDS: inSUlin DETERMIR 1 UNIT/0.01 ML (LEVEMIR) CHARGE PER UNIT SQ SCH (20:49)
[2017-10-04] MEDS: TERAZOSIN 2 MG (HYTRIN) CAP PO SCH (20:49)
[2017-10-05 05:08] VITALS: BP 135/74
[2017-10-05] MEDS: IBUPROFEN 800 MG (MOTRIN) TAB PO SCH ×3 (05:25→16:37)
[2017-10-05] MEDS: inSUlin ASPART (NovoLOG) 1 UNIT/0.01 ML (CHARGE PER UNIT) SC SCH ×4 (05:25→21:31)
[2017-10-05] MEDS: MILK OF MAGNESIA 400 MG/5 ML 30 ML UDC PO PRN (05:25)
[2017-10-05] MEDS: SENNA W/DOCUSATE (SENOKOT S) TABLET PO SCH ×2 (07:41→21:31)
[2017-10-05] MEDS: CLOPIDOGREL 75 MG (PLAVIX) TABLET PO SCH (07:41)
[2017-10-05] MEDS: oxyCODONE/APAP 5/325MG (PERCOCET 5) TABLET PO PRN ×4 (07:41→22:24)
[2017-10-05] MEDS: OXcarbazepine (TRILEPTAL) 300 MG TAB PO SCH ×2 (07:41→21:31)
[2017-10-05] MEDS: ALLOPURINOL 100 MG (ZYLOPRIM) TAB PO SCH (07:41)
[2017-10-05] MEDS: amLODIPine 10 MG (NORVASC) TAB PO SCH (07:41)
[2017-10-05] MEDS: LOSARTAN 50 MG (COZAAR) TAB PO SCH (07:42)
--- NOTE | 2017-10-05 08:03 | Progress Note (SOAP) ---
Subjective Time Seen by Provider: 08:00 Subjective/Events-last exam quadriceps tendon sprain. CVA. patient feels that this improves each day Objective Exam Vital Signs Date Time Temp Pulse Resp B/P (MAP) Pulse Ox O2 Delivery O2 Flow Rate FiO2 10/05/17 05:08 97.3 60 16 135/74 (94) 96 Room Air 10/04/17 18:35 98.5 67 16 146/76 (99) 96 Room Air 10/04/17 09:00 Room Air I & O 10/05/17 07:00 Intake Total 1480 ml Output Total 2000 ml Balance -520 ml Capillary Refill : Less Than 3 Seconds General Appearance: WD/WN HEENT: Normal ENT Inspection Neck: Normal Inspection Respiratory: No Accessory Muscle Use, No Respiratory Distress Cardiovascular: Regular Rate, Rhythm Results Lab Laboratory Tests 10/04/17 11:04: Glucometer 311H 10/04/17 16:06: Glucometer 273H 10/04/17 20:39: Glucometer 257H 10/05/17 04:55: Glucometer 193H Assessment/Plan Assessment/Plan Assess & Plan/Chief Complaint common quadriceps tendon sprain. Previous CVA. Diabetes. Renal insufficiency. . 10/05/17 , Quadriceps tendon sprain. Previous CVA. Diabetes. Renal insufficiency. sugars are running high. increase Levemir Clinical Quality Measures DVT/VTE Risk/Contraindication: Risk Factor Score Per Nursin RFS Level Per Nursing on Admit: 4+=Very High WILLIAN NAGEL DO Oct 05, 2017 08:03
--- NOTE | 2017-10-05 09:00 | Physical Therapy Daily Note ---
PT Daily Note-Current Subjective Pt is in bed pre tx and agrees to PT. Pt knee immobilizer was put on before getting out of bed. Appearance Pt is sitting in [facility] post tx with phone and remote within reach. Mental Status Patient Orientation: Person, Place, Time, Situation Attachments: Knee Immobilizer Transfers Functional [place] Measure 0=Not Assessed/NA 4=Minimal Assistance 1=Total Assistance 5=Supervision or Setup 2=Maximal Assistance 6=Modified [place] 3=Moderate Assistance 7=Complete IndependenceIRFPAI Quality Coding Scale 6 Independent with activity with or without an assistive device 5 Patient requires set up or clean up by helper. Patient completes activity by themselves 4 Supervision or touching assist (CGA). [place] provide cues , steadying assist 3 The helper provides less than half the effort to complete the activity 2 The helper provides more than half the effort to complete the activity 1 Dependent. The helper does all the effort to complete an activity 7 Patient refused to complete or attempt activity 9 The patient did not perform the activity before the current illness or injury 88 Not attempted due to Medical conditions or safety concerns Transfers (B, C, W/C) (FIM): 3 Scootin Rollin Supine to/from Sit: 3 Sit to/from Stand: 3 Bed to/from Chair: 3 Pt requires mod A for bed mobility and transfers. Weight Bearing Right Lower Extremity: Right Weight Bearing/Tolerated Left Lower Extremity: Left Full Weight Bearing Gait Training Does the Patient Walk?: Yes Gait (FIM): 4 Distance: 150 feet Gait Level of Assist: 4 Gait Persons Needed: 1 Gait Assistive Device: FWW Pt wore knee immobilizer during walking to therapy gym. More weight bearing on right leg. Wheelchair Training Does the Pt Use a Wheelchair?: Yes Wheelchair (FIM): 2 Distance: 50 feet Wheelchair Level of Assist: 4 Type of Wheelchair: Manual Exercises Seated Therapy Exercises: Ankle pumps (20 x1 isatu), Long arc quads (10 x1 isatu), Hip flexion (10 x1 isatu), Hamstring Curls (10 x1 isatu), Hip abd/add (10 x1 isatu) Treatments Pt participated in bed mobility, transfers, gait training, and LE strengthening. Assessment Current Status: Fair Progress Pt requires mod A in bed mobility and transfers, and requires min A with gait using a FWW. During seated hip flexion of the RLE, pt demonstrates associated movement of the RUE with shoulder elevation. Mcfp through treatment patient wanted to get rid of the knee immobilizer and he was able to bend his knee and perform sit to stand better. PT Short Term Goals Short Term Goals Time Frame: Oct 11, 2017 Gait (FIM): 2 Distance (FIM): 9=990-75 ft Gait Distance Comment: 100 feet with FWW and armrest for RUE Gait Level of Assist: 4 Gait Assistive Device: Walker Platform Wheelchair (FIM): 3 Wheelchair distance (FIM): 3=150 ft Wheelchair Distance: 150 feet Wheelchair Level of Assist: 5 Stairs (FIM): 1 # of Steps: 1 Stairs Level of Assist: 4 PT Event Mgr Goals Event Mgr Goals PT Event Mgr Goals Time Frame: Oct 25, 2017 Transfers (B,C,W/C) (FIM): 5 Sit to Lying (QC): 4 Lying-Sitting on Side/Bed(QC): 4 Sit to Stand (QC): 4 Rollin Roll Left to Right (QC): 4 Chair/Dpz-pr-Fswhp Xfer(QC): 4 Car Transfer (QC): 4 Does the Patient Walk: Yes Gait (FIM): 5 Distance: 200 feet Walk 10 feet (QC): 4 Walk 10ft-Uneven Surface(QC): 4 Walk 50ft with 2 Turns (QC): 4 Walk 150 ft (QC): 4 Gait Level of Assist: 5 Gait Assistive Device: Walker Platform Does the Pt use WC or Scooter?: Yes Wheelchair (FIM): 6 Distance: 200 feet Wheelchair Level of Assist: 6 Wheel 50 feet with 2 turns (QC: 6 Stairs (FIM): 2 # of Steps: 4 1 Step (curb) (QC): 4 4 Steps (QC): 4 12 Steps (QC): 88 Stairs Level Of Assist: 5 Picking up an Object (QC): 88 PT Plan Problem List Problem List: Activity Tolerance, Functional Strength, Safety, Balance, Gait, Transfer, Bed Mobility, ROM Treatment/Plan Treatment Plan: Continue Plan of Care Treatment Plan: Bed Mobility, Concurrent Therapy, Education, Functional Activity Gregorio, Functional Strength, Group Therapy, Gait, Safety, Therapeutic Exercise, Transfers Treatment Duration: Oct 25, 2017 Frequency: At least 5 of 7 days/Wk (IRF) Estimated Hrs Per Day: 1.5 hours per day Patient and/or Family Agrees t: Yes Safety Risks/Education Patient Education: Gait Training, Transfer Techniques, Correct Positioning, W/ C Management, Safety Issues Teaching Recipient: Patient Teaching Methods: Demonstration, Discussion Response to Teaching: Reinforcement Needed Time/GCodes Time In: 800 Time Out: 900 Total Billed Treatment Time: 60 Total Billed Treatment 1 visit 15 min GT 15 min FA EX 30' JACKIE GRIDER PT Oct 05, 2017 09:00
--- NOTE | 2017-10-05 13:12 | PM & R (SOAP) Progress Note ---
Subjective Time Seen by Provider: 08:15 Subjective/Events-last exam Patient was seen in his room this AM Adjusting well to unit Appreciate DR scott note and orders Insulin dose adjusted Patient Mod assist for transfers Review of Systems Musculoskeletal: leg pain Neurological: Weakness Objective Exam Last Set of Vital Signs Vital Signs Date Time Temp Pulse Resp B/P (MAP) Pulse Ox O2 Delivery O2 Flow Rate FiO2 10/05/17 09:00 Room Air 10/05/17 05:08 97.3 60 16 135/74 (94) 96 Capillary Refill : Less Than 3 Seconds I&O Intake and Output 10/05/17 00:00 Intake Total 1330 ml Output Total 1600 ml Balance -270 ml Intake Oral 1330 ml Output Urine Total 1600 ml General: Alert, Oriented X3, Cooperative, No Acute Distress HEENT: Atraumatic, PERRLA, EOMI, Mucous Memb Moist/[place], Other (mild expressive aphasia) Neck: Supple, No JVD Lungs: Clear to Auscultation Heart: Regular Rate Abdomen: Normal Bowel Sounds, Soft, No Tenderness Extremities: No Edema Neuro: Other (Mild rt HP has antigravity strength RT knee in immobilizer) Results Lab Laboratory Tests 10/03/17 16:49: Glucometer 219H 10/03/17 20:40: Glucometer 356H 10/04/17 05:50: Glucometer 222H 10/04/17 06:36: White Blood Count 6.6, Red Blood Count 4.26L, Hemoglobin 13.4, Hematocrit 38L, Mean Corpuscular Volume 89, Mean Corpuscular Hemoglobin 32, Mean Corpuscular Hemoglobin Concent 35, Red Cell Distribution Width 11.8, Platelet Count 204, Mean Platelet Volume 9.7, Neutrophils (%) (Auto) 62, Lymphocytes (%) (Auto) 27, Monocytes (%) (Auto) 9, Eosinophils (%) (Auto) 2, Basophils (%) (Auto) 1, Neutrophils # (Auto) 4.1, Lymphocytes # (Auto) 1.8, Monocytes # (Auto) 0.6, Eosinophils # (Auto) 0.1, Basophils # (Auto) 0.0, Sodium Level 135, Potassium Level 4.0, Chloride Level 102, Carbon Dioxide Level 22, Anion Gap 11, Blood Urea Nitrogen 36H, Creatinine 1.54H, Estimat Glomerular Filtration Rate 46, BUN/ Creatinine Ratio 23, Glucose Level 213H, Calcium Level 8.9, Total Bilirubin 0.7 , Aspartate Amino Transf (AST/SGOT) 20, Alanine Aminotransferase (ALT/SGPT) 16, Alkaline Phosphatase 139H, Total Protein 6.6, Albumin 3.3 10/04/17 11:04: Glucometer 311H 10/04/17 16:06: Glucometer 273H 10/04/17 20:39: Glucometer 257H 10/05/17 04:55: Glucometer 193H 10/05/17 11:06: Glucometer 311H Assessment/Plan Assessment Fall with Knee pain Quadriceps strain Prior RT TKR DR Dimas [facility] approx 2007 DJD Left Knee 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
--- NOTE | 2017-10-05 13:19 | Individualized Plan of Care ---
Individualized Plan of Care Rehab Nursing IPOC Order Admission Date Oct 03, 2017 at 16:15 Current Orders Orders Admission-Acute Rehab Unit (10/03/17 14:23) Vital Signs: Routine 08,16,00 (10/03/17 14:23) Help Desk Technician-Inpt Rehab (10/03/17 14:23) Rehab Nursing Orders-Ipoc (10/03/17 14:23) Physical Therapy Rehab Orders (10/03/17 14:23) Occupational Therapy Rehab Ord (10/03/17 14:23) Speech Therapy Rehab Orders (10/03/17 14:23) Cho 60g/M 1snack (16-2000 Fitz) (10/03/17 Dinner) Turn And Reposition Q2HR (10/03/17 14:23) Intake & Output 06,14,22 (10/03/17 14:23) Weight Bearing Status (10/03/17 14:23) Precautions (Aru) (10/03/17 14:23) Weekly Weight (Lbs) WEEK (10/03/17 14:23) Tizanidine Tablet (Zanaflex Tablet) (10/03/17 14:30) Ibuprofen Tablet (Motrin Tablet) (10/03/17 17:00) Insulin Determir (Per Unit) (Levemir (Pe (10/03/17 21:00) Oxycodone/Apap 5/325mg Tablet (Percocet (10/03/17 14:30) Allopurinol Tablet (Zyloprim Tablet) (10/04/17 09:00) Famotidine Tablet (Pepcid Tablet) (10/03/17 21:00) Clopidogrel Tablet (Plavix Tablet) (10/04/17 09:00) Lamotrigine Tablet (Lamictal Tablet) (10/03/17 21:00) Losartan Tablet (Cozaar Tablet) (10/04/17 09:00) Oxcarbazepine Tablet (Trileptal Tablet) (10/03/17 21:00) Terazosin Capsule (Hytrin Capsule) (10/03/17 21:00) Consult Physician (10/03/17 14:42) Accucheck Achs ACHS (10/03/17 14:43) Amlodipine Tablet (Norvasc Tablet) (10/04/17 09:00) Follow-Up Appointment (10/03/17 17:50) Follow-Up Appointment (10/03/17 17:54) Senna S Tablet (Senokot S Tablet) (10/03/17 21:00) Magnesium Hydroxide Oral Susp (Mom Oral (10/03/17 19:30) Bisacodyl Tablet (Dulcolax Tablet) (10/03/17 19:30) Insulin Aspart (Novolog) (Novolog (Charg (10/03/17 19:30) Insulin Aspart (Novolog) (Novolog (Charg (10/03/17 21:00) Cbc With Automated Diff (10/04/17 06:00) Comprehensive Metabolic Panel (10/04/17 06:00) Patient Visit (10/04/17 ) Speech Sound Lang Comp (10/04/17 ) Famotidine Tablet (Pepcid Tablet) (10/04/17 21:00) Patient Visit (10/04/17 ) Patient Visit (10/04/17 ) Gait Training, Ea 15 Min (10/04/17 ) Functional Activities, Ea 15 (10/04/17 ) Pt Eval Moderate Complexity (10/04/17 ) Insulin Determir (Per Unit) (Levemir (Pe (10/05/17 21:00) Rehab Nursing Orders: Diseage Management, Edu in Press Rel Techn, Hydration Management, Nutrition Management, Pain Management Other Nursing Orders: Monitor for urinary retention and adjust meds for constipation as needed PT IPOC Problem List: Activity Tolerance, Functional Strength, Safety, Balance, Gait, Transfer, Bed Mobility, ROM Treatment Plan: Continue Plan of Care Bed Mobility, Concurrent Therapy, Education, Functional Activity Gregorio, Functional Strength, Group Therapy, Gait, Safety, Therapeutic Exercise, Transfers Treatment Duration: Oct 25, 2017 Frequency: At least 5 of 7 days/Wk (IRF) Estimated Hrs Per Day: 1.5 hours per day OT IPOC Problems: Decreased Activ Tolerance, Decreased Safety Aware, Decreased UE Strength, Dependent Transfers, Impaired Bed Mobility, Impaired Coordination (R UE), Impaired Funct Balance, Impaired Self-Care Skills, Restricted Funct UE ROM OT Treatment, Training and Edu: Yes OT Problems Pt would benefit from skilled OT to increase his independence in basic self care to allow him to safely return to his home to live with his and to decrease caregiver burden. Plan of Care: ADL Retraining, Functional Mobility, Group Exercise/Act as Ind ( education, exercise, act tolerance, problem solving, funct mobility, communication, socialization), UE Funct Exercise/Act, UE Neuromus Re-Ed/Coord Treatment Duration: Oct 25, 2017 Frequency: At least 5 of 7 days/Wk (IRF) Estimated Hrs Per Day: 1.5 hours per day (1-25 to 1.5) [facility] Speech Therapy Treatment Plan: Continue Plan of Care Treatment Duration: Oct 18, 2017 Frequency: Modified Program (IRF) (Four to five times per day.) Estimated Hrs Per Day: .5 hour per day Help Desk Technician/Case Mgmt Help Desk Technician/Case Managemen: Discharge Planning, Patient/Family Counseling Physician [facility] Medical Issues being managed closely and that require the 24 hour availability of a physician: RT knee pain DM Constipation HTN Medical Issues: Bowel/Bladder Function, DVT Prophylaxis, Falls Precautions, Infection Protection, Pain Management, Other (List) (as per above) Brief Synthesis of Preadmission Screen, Post-Admission Evaluation, and Therapy Evaluations:66 yo male with PMH significant for Left CVa with mild rt HP who had been fairly Independent who injured his right knee while doing exercise with personal driver seen BY Ortho at OSH who felt it was a Quad strain and ordered Knee immobilizer and WBAT.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
--- NOTE | 2017-10-05 15:14 | Occupational Ther Daily Note ---
OT Current Status-Daily Note Subjective Pt seen in room, up in w/c, agreeable to OT. Did not want to shower today but agreed to do so tomorrow. Pt reported R knee hurt when he got up but did not rate it. Appearance Alert, cooperative, speaks very slowly and deliberately Mental Status/Objective Functional [place] Measure 0=Not Assessed/NA 4=Minimal Assistance 1=Total Assistance 5=Supervision or Setup 2=Maximal Assistance 6=Modified [place] 3=Moderate Assistance 7=Complete [place] ADL-Treatment All ADLs took longer than usual. Pt left up in w/c, ordering his lunch. All needs met. Functional [place] Measure 0=Not Assessed/NA 4=Minimal Assistance 1=Total Assistance 5=Supervision or Setup 2=Maximal Assistance 6=Modified [place] 3=Moderate Assistance 7=Complete IndependenceIRFPAI Quality Coding Scale 6 Independent with activity with or without an assistive device 5 Patient requires set up or clean up by helper. Patient completes activity by themselves 4 Supervision or touching assist (CGA). [place] provide cues , steadying assist 3 The helper provides less than half the effort to complete the activity 2 The helper provides more than half the effort to complete the activity 1 Dependent. The helper does all the effort to complete an activity 7 Patient refused to complete or attempt activity 9 The patient did not perform the activity before the current illness or injury 88 Not attempted due to Medical conditions or safety concerns Grooming (FIM): 5 (Pt cleaned teeth and brushed hair at sink, w/c level, with setup to open denture silver cleaner. Washed face and hands during sponge bath.) Bathing (FIM): 1 (Able to lean forward to wash feet. Uses R hand to wash L arm. Two person assist to stand to wash bottom, FWW. Sponge bath) Bathing Location: L Arm, R Arm, L Upper Leg, R Upper Leg, L Lower Leg ( including foot), R Lower Leg (including foot), Chest, Abdomen, Perineal Area Upper Body (FIM): 5 (Doffed and donned shirt with setup) Lower Body Dressing (FIM): 1 (Pt able to get pants on over feet with min assist. Min assist to put slippers on. Two person assist needed to stand to pull pants down and up, FWW) Education OT Patient Education: Modified ADL techniques, Progress toward Goal/Update tx plan, Purpose of tx/functional activities, Transfer techniques Teaching Recipient: Patient Teaching Methods: Demonstration, Discussion Response to Teaching: Verbalize Understanding, Return Demonstration, Reinforcement Needed OT Short Term Goals Short Term Goals Time Frame: Oct 13, 2017 Toileting(FIM): 3 Toilet/Commode Transfer(FIM): 3 Shower Transfer(FIM): 3 Additional Short Term Goals: 1-Demonstrate ADL Tasks, 2-Verbalize Understanding , 3-ImproveStrength/Gregorio 1=Demonstrate adherence to instructed precautions during ADL tasks. 2=Patient will verbalize/demonstrate understanding of assistive devices/ modifications for ADL. 3=Patient will improve strength/tolerance for activity to enable patient to perform ADL's. OT Platemaker Goals Platemaker Goals Time Frame: Oct 25, 2017 Eating (FIM): 6 Eating (QC): 6 Groomin Oral Hygiene (QC): 6 Bathing(FIM): 6 Shower/Bathe Self (QC): 6 Upper Body Dressing(FIM): 6 Upper Body Dressing (QC): 6 Lower Body Dressing(FIM): 6 Lower Body Dressing (QC): 6 On/Off Footwear (QC): 6 Toileting(FIM): 6 Toileting Hygiene (QC): 6 Transfers (B,C,W/C) (FIM): 6 Toilet/Commode Transfer(FIM): 6 Toilet/Commode Transfer (QC): 6 Shower Transfer(FIM): 6 Comprehension(FIM): 5 Expression (FIM): 5 Social Interaction(FIM): 6 Problem Solving(FIM): 5 Memory(FIM): 6 Additional Goals: 1-Demonstrate ADL Tasks, 2-Verbalize Understanding, 3- ImproveStrength/Gregorio 1=Demonstrate adherence to instructed precautions during ADL tasks. 2=Patient will verbalize/demonstrate understanding of assistive devices/ modifications for ADL. 3=Patient will improve strength/tolerance for activity to enable patient to perform ADL's. OT Education/Plan Problem List/Assessment Pt would benefit from skilled OT to increase his independence in basic self care to allow him to safely return to his home to live with his and to decrease caregiver burden. Discharge Recommendations Plan/Recommendations: Continue POC Treatment Plan/Plan of Care Patient would benefit from OT for education, treatment and training to promote independence in ADL's, mobility, safety and/or upper extremity function for ADL' s. Plan of Care: ADL Retraining, Functional Mobility, Group Exercise/Act as Ind ( education, exercise, act tolerance, problem solving, funct mobility, communication, socialization), UE Funct Exercise/Act, UE Neuromus Re-Ed/Coord Treatment Duration: Oct 25, 2017 Frequency: At least 5 of 7 days/Wk (IRF) Estimated Hrs Per Day: 1.5 hours per day (1-25 to 1.5) Agreement: Yes Rehab Potential: Fair Time/GCodes Start Time: 09:00 Stop Time: 10:00 Total Time Billed (hr/min): 60 Billed Treatment Time visit, ADL 60 minutes TERE DEL CASTILLO OT Oct 05, 2017 15:14
--- NOTE | 2017-10-05 15:15 | Occupational Ther Daily Note ---
OT Current Status-Daily Note Subjective Pt seen in room, up in w/c, agreeable to OT. Pt thought he might need to have BM. Appearance Alert, cooperative Mental Status/Objective Functional [place] Measure 0=Not Assessed/NA 4=Minimal Assistance 1=Total Assistance 5=Supervision or Setup 2=Maximal Assistance 6=Modified [place] 3=Moderate Assistance 7=Complete [place] ADL-Treatment Pt transferred to [facility], two person assist, walking a few feet from w/c with min assist. Discussed toileting setup at home and equipment needs for here. Pt requested to sit longer on toilet so left up with call light, nursing notified. Functional [place] Measure 0=Not Assessed/NA 4=Minimal Assistance 1=Total Assistance 5=Supervision or Setup 2=Maximal Assistance 6=Modified [place] 3=Moderate Assistance 7=Complete IndependenceIRFPAI Quality Coding Scale 6 Independent with activity with or without an assistive device 5 Patient requires set up or clean up by helper. Patient completes activity by themselves 4 Supervision or touching assist (CGA). [place] provide cues , steadying assist 3 The helper provides less than half the effort to complete the activity 2 The helper provides more than half the effort to complete the activity 1 Dependent. The helper does all the effort to complete an activity 7 Patient refused to complete or attempt activity 9 The patient did not perform the activity before the current illness or injury 88 Not attempted due to Medical conditions or safety concerns Toileting (FIM): 1 (Two person help needed to manage clothing and hygiene. BSC , FWW with platform) Toileting Hygiene (QC): 1 Toilet/Commode Transfer (FIM): 1 (Two person assist needed to get on and off BSC, FWW with platform. ) Toilet Transfer (QC): 1 Education OT Patient Education: Modified ADL techniques, Purpose of tx/functional activities, Transfer techniques Teaching Recipient: Patient Teaching Methods: Demonstration Response to Teaching: Return Demonstration OT Short Term Goals Short Term Goals Time Frame: Oct 13, 2017 Toileting(FIM): 3 Toilet/Commode Transfer(FIM): 3 Shower Transfer(FIM): 3 Additional Short Term Goals: 1-Demonstrate ADL Tasks, 2-Verbalize Understanding , 3-ImproveStrength/Gregorio 1=Demonstrate adherence to instructed precautions during ADL tasks. 2=Patient will verbalize/demonstrate understanding of assistive devices/ modifications for ADL. 3=Patient will improve strength/tolerance for activity to enable patient to perform ADL's. OT Skilled Nursing Goals Skilled Nursing Goals Time Frame: Oct 25, 2017 Eating (FIM): 6 Eating (QC): 6 Groomin Oral Hygiene (QC): 6 Bathing(FIM): 6 Shower/Bathe Self (QC): 6 Upper Body Dressing(FIM): 6 Upper Body Dressing (QC): 6 Lower Body Dressing(FIM): 6 Lower Body Dressing (QC): 6 On/Off Footwear (QC): 6 Toileting(FIM): 6 Toileting Hygiene (QC): 6 Transfers (B,C,W/C) (FIM): 6 Toilet/Commode Transfer(FIM): 6 Toilet/Commode Transfer (QC): 6 Shower Transfer(FIM): 6 Comprehension(FIM): 5 Expression (FIM): 5 Social Interaction(FIM): 6 Problem Solving(FIM): 5 Memory(FIM): 6 Additional Goals: 1-Demonstrate ADL Tasks, 2-Verbalize Understanding, 3- ImproveStrength/Gregorio 1=Demonstrate adherence to instructed precautions during ADL tasks. 2=Patient will verbalize/demonstrate understanding of assistive devices/ modifications for ADL. 3=Patient will improve strength/tolerance for activity to enable patient to perform ADL's. OT Education/Plan Problem List/Assessment Pt would benefit from skilled OT to increase his independence in basic self care to allow him to safely return to his home to live with his and to decrease caregiver burden. Discharge Recommendations Plan/Recommendations: Continue POC Treatment Plan/Plan of Care Patient would benefit from OT for education, treatment and training to promote independence in ADL's, mobility, safety and/or upper extremity function for ADL' s. Plan of Care: ADL Retraining, Functional Mobility, Group Exercise/Act as Ind ( education, exercise, act tolerance, problem solving, funct mobility, communication, socialization), UE Funct Exercise/Act, UE Neuromus Re-Ed/Coord Treatment Duration: Oct 25, 2017 Frequency: At least 5 of 7 days/Wk (IRF) Estimated Hrs Per Day: 1.5 hours per day (1-25 to 1.5) Agreement: Yes Rehab Potential: Fair Time/GCodes Start Time: 13:30 Stop Time: 14:00 Total Time Billed (hr/min): 30 Billed Treatment Time visit, 30 minutes ADL TREE DEL CASTILLO OT Oct 05, 2017 15:15
--- NOTE | 2017-10-05 16:19 | Physical Therapy Daily Note ---
PT Daily Note-Current Subjective Pt sitting in [facility] upon arrival. Pt reports feeling very fatigued and weak. Pt requesting return to Supine in bed and Supine Ex for PT tx. Pain Location: Left Location Body Site: Knee Pain Description: Ache, Tightness Comment: Pt doesn't rate, based on facial grimaces. Mental Status Patient Orientation: Person, Place, Situation Transfers Functional [place] Measure 0=Not Assessed/NA 4=Minimal Assistance 1=Total Assistance 5=Supervision or Setup 2=Maximal Assistance 6=Modified [place] 3=Moderate Assistance 7=Complete IndependenceIRFPAI Quality Coding Scale 6 Independent with activity with or without an assistive device 5 Patient requires set up or clean up by helper. Patient completes activity by themselves 4 Supervision or touching assist (CGA). [place] provide cues , steadying assist 3 The helper provides less than half the effort to complete the activity 2 The helper provides more than half the effort to complete the activity 1 Dependent. The helper does all the effort to complete an activity 7 Patient refused to complete or attempt activity 9 The patient did not perform the activity before the current illness or injury 88 Not attempted due to Medical conditions or safety concerns Scootin Rollin Roll Left to Right (QC): 3 Supine to/from Sit: 3 Sit to/from Stand: 3 Sit to Lying (QC): 3 Sit to Stand (QC): 3 Chair/Ezr-xb-Hewkj Xfer(QC): 3 Bed to/from Chair: 3 Weight Bearing Right Lower Extremity: Right Weight Bearing/Tolerated Left Lower Extremity: Left Full Weight Bearing Exercises Supine Ex: Bridging, Heel Slides Supine Reps: 15 Treatments Pt transfers from [facility] to EOB via SPT at [facility]. Pt transfers from EOB to Supine in bed at [facility]. Pt completes Supine Ex with emphasis on deep breathing instead of holding breath. Pt rests Supine in bed at end of tx with all needs met. Assessment Current Status: Fair Progress Pt has difficulty following instructions given as well as pt is still [facility] with transfers due to weakness. PT Short Term Goals Short Term Goals Time Frame: Oct 11, 2017 Gait (FIM): 2 Distance (FIM): 9=665-52 ft Gait Distance Comment: 100 feet with FWW and armrest for RUE Gait Level of Assist: 4 Gait Assistive Device: Walker Platform Wheelchair (FIM): 3 Wheelchair distance (FIM): 3=150 ft Wheelchair Distance: 50 feet Wheelchair Level of Assist: 5 Stairs (FIM): 1 # of Steps: 1 Stairs Level of Assist: 4 PT Senior Living Goals Senior Living Goals PT Senior Living Goals Time Frame: Oct 25, 2017 Transfers (B,C,W/C) (FIM): 5 Sit to Lying (QC): 4 Lying-Sitting on Side/Bed(QC): 4 Sit to Stand (QC): 4 Rollin Roll Left to Right (QC): 4 Chair/Mno-gi-Fvyqn Xfer(QC): 4 Car Transfer (QC): 4 Does the Patient Walk: Yes Gait (FIM): 5 Distance: 200 feet Walk 10 feet (QC): 4 Walk 10ft-Uneven Surface(QC): 4 Walk 50ft with 2 Turns (QC): 4 Walk 150 ft (QC): 4 Gait Level of Assist: 5 Gait Assistive Device: Walker Platform Does the Pt use WC or Scooter?: Yes Wheelchair (FIM): 6 Distance: 200 feet Wheelchair Level of Assist: 6 Wheel 50 feet with 2 turns (QC: 6 Stairs (FIM): 2 # of Steps: 4 1 Step (curb) (QC): 4 4 Steps (QC): 4 12 Steps (QC): 88 Stairs Level Of Assist: 5 Picking up an Object (QC): 88 PT Plan Problem List Problem List: Activity Tolerance, Functional Strength, Safety, Balance, Gait, Transfer, Bed Mobility Treatment/Plan Treatment Plan: Continue Plan of Care Treatment Plan: Bed Mobility, Concurrent Therapy, Education, Functional Activity Gregorio, Functional Strength, Group Therapy, Gait, Safety, Therapeutic Exercise, Transfers Treatment Duration: Oct 25, 2017 Frequency: At least 5 of 7 days/Wk (IRF) Estimated Hrs Per Day: 1.5 hours per day Patient and/or Family Agrees t: Yes Safety Risks/Education Patient Education: Transfer Techniques, Correct Positioning, Safety Issues Teaching Recipient: Patient Teaching Methods: Demonstration, Discussion Response to Teaching: Reinforcement Needed Time/GCodes Time In: 1500 Time Out: 1530 Total Billed Treatment Time: 30 Total Billed Treatment 1, FA (10m) & EX (20m) KYRIE LLOYD TRUCK DRIVER RUBBISH COLLECTOR Oct 05, 2017 16:19
[2017-10-05 18:49] VITALS: BP 147/82
[2017-10-05] MEDS: FAMOTIDINE 20 MG (PEPCID) TABLET PO SCH (21:31)
[2017-10-05] MEDS: TERAZOSIN 2 MG (HYTRIN) CAP PO SCH (21:31)
[2017-10-05] MEDS: inSUlin DETERMIR 1 UNIT/0.01 ML (LEVEMIR) CHARGE PER UNIT SQ SCH (21:31)
[2017-10-06 06:15] VITALS: BP 149/80
[2017-10-06] MEDS: inSUlin ASPART (NovoLOG) 1 UNIT/0.01 ML (CHARGE PER UNIT) SC SCH ×4 (06:35→21:25)
[2017-10-06] MEDS: IBUPROFEN 800 MG (MOTRIN) TAB PO SCH ×3 (06:37→16:27)
[2017-10-06] MEDS: SENNA W/DOCUSATE (SENOKOT S) TABLET PO SCH ×2 (07:50→21:21)
[2017-10-06] MEDS: CLOPIDOGREL 75 MG (PLAVIX) TABLET PO SCH (07:51)
[2017-10-06] MEDS: OXcarbazepine (TRILEPTAL) 300 MG TAB PO SCH ×2 (07:51→21:20)
[2017-10-06] MEDS: oxyCODONE/APAP 5/325MG (PERCOCET 5) TABLET PO PRN ×4 (07:51→21:52)
[2017-10-06] MEDS: LOSARTAN 50 MG (COZAAR) TAB PO SCH (07:51)
[2017-10-06] MEDS: ALLOPURINOL 100 MG (ZYLOPRIM) TAB PO SCH (07:51)
[2017-10-06] MEDS: amLODIPine 10 MG (NORVASC) TAB PO SCH (07:51)
[2017-10-06] MEDS: MILK OF MAGNESIA 400 MG/5 ML 30 ML UDC PO PRN (07:53)
--- NOTE | 2017-10-06 08:29 | Progress Note (SOAP) ---
Subjective Time Seen by Provider: 08:28 Subjective/Events-last exam patient states he is improving each day. , And quadriceps tendon strain. CVA. Patient positive Objective Exam Vital Signs Date Time Temp Pulse Resp B/P (MAP) Pulse Ox O2 Delivery O2 Flow Rate FiO2 10/06/17 06:15 98.2 68 18 149/80 (103) 97 Room Air 10/05/17 18:49 98.4 65 16 147/82 (103) 97 Room Air 10/05/17 09:00 Room Air I & O 10/06/17 06:59 Intake Total 1320 ml Output Total 1775 ml Balance -455 ml Capillary Refill : Less Than 3 Seconds General Appearance: No Apparent Distress, WD/WN Results Lab Laboratory Tests 10/05/17 11:06: Glucometer 311H 10/05/17 16:06: Glucometer 246H 10/05/17 20:32: Glucometer 225H 10/06/17 06:06: Glucometer 121H Assessment/Plan Assessment/Plan Assess & Plan/Chief Complaint common quadriceps tendon sprain. Previous CVA. Diabetes. Renal insufficiency. . 10/05/17 , Quadriceps tendon sprain. Previous CVA. Diabetes. Renal insufficiency. sugars are running high. increase Levemir. . 10/06/17 Quadriceps tendon sprain. Previous CVA. Diabetes under good control renal insufficiency. Patient doing better Clinical Quality Measures DVT/VTE Risk/Contraindication: Risk Factor Score Per Nursin RFS Level Per Nursing on Admit: 4+=Very High WILLIAN NAGEL DO Oct 06, 2017 08:29
--- NOTE | 2017-10-06 10:21 | PM & R (SOAP) Progress Note ---
Subjective Time Seen by Provider: 08:05 Subjective/Events-last exam Patient was seen in his room this AM Eating and sleeping OK DM better controled with adjustment in Insulin Accucheks noted. Patient Mod assist for trsnsfers Appreciate Dr scott note Objective Exam Last Set of Vital Signs Vital Signs Date Time Temp Pulse Resp B/P (MAP) Pulse Ox O2 Delivery O2 Flow Rate FiO2 10/06/17 08:00 Room Air 10/06/17 06:15 98.2 68 18 149/80 (103) 97 Capillary Refill : Less Than 3 Seconds I&O Intake and Output 10/06/17 00:00 Intake Total 1180 ml Output Total 1800 ml Balance -620 ml Intake Oral 1180 ml Output Urine Total 1800 ml General: Alert, Oriented X3, Cooperative, No Acute Distress HEENT: Atraumatic, PERRLA, EOMI, Mucous Memb Moist/Smoke Rise, Other (mild expressive aphasia) Neck: Supple, No JVD Lungs: Clear to Auscultation Heart: Regular Rate Abdomen: Normal Bowel Sounds, Soft, No Tenderness Extremities: No Edema Neuro: Other (Mild rt HP has antigravity strength RT knee in immobilizer) Results Lab Laboratory Tests 10/03/17 16:49: Glucometer 219H 10/03/17 20:40: Glucometer 356H 10/04/17 05:50: Glucometer 222H 10/04/17 06:36: White Blood Count 6.6, Red Blood Count 4.26L, Hemoglobin 13.4, Hematocrit 38L, Mean Corpuscular Volume 89, Mean Corpuscular Hemoglobin 32, Mean Corpuscular Hemoglobin Concent 35, Red Cell Distribution Width 11.8, Platelet Count 204, Mean Platelet Volume 9.7, Neutrophils (%) (Auto) 62, Lymphocytes (%) (Auto) 27, Monocytes (%) (Auto) 9, Eosinophils (%) (Auto) 2, Basophils (%) (Auto) 1, Neutrophils # (Auto) 4.1, Lymphocytes # (Auto) 1.8, Monocytes # (Auto) 0.6, Eosinophils # (Auto) 0.1, Basophils # (Auto) 0.0, Sodium Level 135, Potassium Level 4.0, Chloride Level 102, Carbon Dioxide Level 22, Anion Gap 11, Blood Urea Nitrogen 36H, Creatinine 1.54H, Estimat Glomerular Filtration Rate 46, BUN/ Creatinine Ratio 23, Glucose Level 213H, Calcium Level 8.9, Total Bilirubin 0.7 , Aspartate Amino Transf (AST/SGOT) 20, Alanine Aminotransferase (ALT/SGPT) 16, Alkaline Phosphatase 139H, Total Protein 6.6, Albumin 3.3 10/04/17 11:04: Glucometer 311H 10/04/17 16:06: Glucometer 273H 10/04/17 20:39: Glucometer 257H 10/05/17 04:55: Glucometer 193H 10/05/17 11:06: Glucometer 311H 10/05/17 16:06: Glucometer 246H 10/05/17 20:32: Glucometer 225H 10/06/17 06:06: Glucometer 121H Assessment/Plan Assessment Fall with Knee pain Quadriceps strain Prior RT TKR DR Dimas [facility] approx 2007 DJD Left Knee 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
--- NOTE | 2017-10-06 10:45 | Speech Therapy Daily Note ---
Speech Daily Progress Note Subjective Date Seen by Provider: Oct 06, 2017 Time Seen by Provider: 00:30 PATIENT UTILIZED APPROPRIATE GREETING AND HUMOR WITH THIS PHOTO MACHINE OPERATOR. HE INDICATED THAT HE WAS HAPPY TO WORK ON SPEECH EXPRESSION, INDICATING THAT HE WANTS TO BE ABLE TO INCREASE HIS RESPONSE TIME. Pain Numeric Pain Scale: 0-No Pain Objective THE PATIENT WAS TASKED WITH COMPLETION OF VERBAL ANALOGIES, OPPOSITE NAMING WELL PICTURE NAMING TASKS DURING HIS SESSION WITH THIS PHOTO MACHINE OPERATOR. Assessment Assessment Current Status: Good Progress MITUL REQUIRED EXTRA TIME FOR THE OPPOSITE NAMING, IDENTIFIED 90% OF ADL PICTURE ITEMS WITHOUT CUES AND WAS ABLE TO COMPLETE VERBAL ANALOGIES GIVEN UP TO FOUR CHOICES. Treatment Plan Continue Plan of Care Communication Comprehension: 5 Expression: 4 (A little difficult to understand at times) Social Cognition Social Interaction: 5 Problem Solvin Memory: 6 Speech Short Term Goals Short Term Goals Short Term Goals 1. The patient will recall and demonstrate three word-finding strategies with mild clinician verbal prompting. 2. The patient will display 80% accuracy with structured word-finding tasks with mild clinician verbal prompting. Time Frame-STG: Ten Days Speech Director Of Physician Practices Goals Fdc Goals 1. The patient will demonstrate improved expressive communication for increased function and safety with ADL's in the least restrictive setting. Time Frame: Two Weeks Comprehension: 5 Expression: 5 Social Interaction: 6 Problem Solvin Memory: 6 Speech-Plan Treatment Plan Speech Therapy Treatment Plan: Continue Plan of Care CONTINUE WITH PLAN OF CARE FOR THIS PATIENT. Treatment Duration: Oct 18, 2017 Frequency: Modified Program (IRF) (Four to five times per day.) Estimated Hrs Per Day: .5 hour per day Rehab Potential: Good Time Speech Therapy Time In: 08:50 Speech Therapy Time Out: 09:20 Total Billed Time: 30 Billed Treatment Time 1, LAKESHIA POWELL Oct 06, 2017 10:45
--- NOTE | 2017-10-06 11:51 | Physical Therapy Daily Note ---
PT Daily Note-Current Subjective Pt is sitting in chair pre tx and agrees to PT. Pt has no c/o pain. Appearance Pt is sitting in [facility] post tx with RLE in footplate and pillow underneath the RUE. Phone, tray, and remote are within reach. Mental Status Patient Orientation: Person, Place, Situation Transfers Functional [place] Measure 0=Not Assessed/NA 4=Minimal Assistance 1=Total Assistance 5=Supervision or Setup 2=Maximal Assistance 6=Modified [place] 3=Moderate Assistance 7=Complete IndependenceIRFPAI Quality Coding Scale 6 Independent with activity with or without an assistive device 5 Patient requires set up or clean up by helper. Patient completes activity by themselves 4 Supervision or touching assist (CGA). [place] provide cues , steadying assist 3 The helper provides less than half the effort to complete the activity 2 The helper provides more than half the effort to complete the activity 1 Dependent. The helper does all the effort to complete an activity 7 Patient refused to complete or attempt activity 9 The patient did not perform the activity before the current illness or injury 88 Not attempted due to Medical conditions or safety concerns Transfers (B, C, W/C) (FIM): 3 Scootin Sit to/from Stand: 3 Bed to/from Chair: 3 Pt required verbal cues for hand placement during chair to [facility] transfer. Weight Bearing Right Lower Extremity: Right Weight Bearing/Tolerated Left Lower Extremity: Left Full Weight Bearing Gait Training Does the Patient Walk?: Yes Gait (FIM): 4 Distance: 150 feet Gait Level of Assist: 4 Gait Persons Needed: 1 Gait Assistive Device: Walker Platform Pt ambulates with most of his weight on the LLE and does not fully extend the knee of the RLE. min assist Wheelchair Training Does the Pt Use a Wheelchair?: Yes Exercises NuStep Minutes: 15 NuStep Workload: 5 Treatments Pt participated in functional activity and gait training. Assessment Current Status: Fair Progress Pt notes that he notices improvement in his gait and felt the NuStep is helping as well. Pt requires verbal cues for hand placement during chair to H transfer. Pt was able to walk 150 feet with platform walker and CGA PT Short Term Goals Short Term Goals Time Frame: Oct 11, 2017 Gait (FIM): 2 Distance (FIM): 9=170-02 ft Gait Distance Comment: 100 feet with FWW and armrest for RUE Gait Level of Assist: 4 Gait Assistive Device: Walker Platform Wheelchair (FIM): 3 Wheelchair distance (FIM): 3=150 ft Wheelchair Distance: 50 feet Wheelchair Level of Assist: 5 Stairs (FIM): 1 # of Steps: 1 Stairs Level of Assist: 4 PT Physical Therapy Coordinator Goals Custodial Goals PT Custodial Goals Time Frame: Oct 25, 2017 Transfers (B,C,W/C) (FIM): 5 Sit to Lying (QC): 4 Lying-Sitting on Side/Bed(QC): 4 Sit to Stand (QC): 4 Rollin Roll Left to Right (QC): 4 Chair/Nrd-hi-Epalo Xfer(QC): 4 Car Transfer (QC): 4 Does the Patient Walk: Yes Gait (FIM): 5 Distance: 200 feet Walk 10 feet (QC): 4 Walk 10ft-Uneven Surface(QC): 4 Walk 50ft with 2 Turns (QC): 4 Walk 150 ft (QC): 4 Gait Level of Assist: 5 Gait Assistive Device: Walker Platform Does the Pt use WC or Scooter?: Yes Wheelchair (FIM): 6 Distance: 200 feet Wheelchair Level of Assist: 6 Wheel 50 feet with 2 turns (QC: 6 Stairs (FIM): 2 # of Steps: 4 1 Step (curb) (QC): 4 4 Steps (QC): 4 12 Steps (QC): 88 Stairs Level Of Assist: 5 Picking up an Object (QC): 88 PT Plan Problem List Problem List: Activity Tolerance, Functional Strength, Safety, Balance, Gait, Transfer, Bed Mobility, ROM Treatment/Plan Treatment Plan: Continue Plan of Care Treatment Plan: Bed Mobility, Concurrent Therapy, Education, Functional Activity Gregorio, Functional Strength, Group Therapy, Gait, Safety, Therapeutic Exercise, Transfers Treatment Duration: Oct 25, 2017 Frequency: At least 5 of 7 days/Wk (IRF) Estimated Hrs Per Day: 1.5 hours per day Patient and/or Family Agrees t: Yes Safety Risks/Education Patient Education: Gait Training, Transfer Techniques, Correct Positioning, Safety Issues Teaching Recipient: Patient Teaching Methods: Demonstration, Discussion Response to Teaching: Reinforcement Needed Time/GCodes Time In: 1100 Time Out: 1145 Total Billed Treatment Time: 45 Total Billed Treatment 1 visit EX 15' 15 min GT FA 15' JACKIE GRIDER PT Oct 06, 2017 11:51
--- NOTE | 2017-10-06 14:07 | Occupational Ther Daily Note ---
OT Current Status-Daily Note Subjective Pt seen in room, up in bed, agreeable to OT. Pt reported R knee pain was better Appearance Alert, cooperative Mental Status/Objective Functional [place] Measure 0=Not Assessed/NA 4=Minimal Assistance 1=Total Assistance 5=Supervision or Setup 2=Maximal Assistance 6=Modified [place] 3=Moderate Assistance 7=Complete [place] ADL-Treatment Pt preferred to get up out of bed, moving toward his left side. He was able to get up to EOB by himself, struggling and taking extra time. He was able to sit EOB without LOB to wash bautista areas with warm wipes but was not able to wash his bottom. He dressed upper body with setup but needed two person assist (almost one person mod assist) to stand, with bed elevated. Two person help to pull pant sup. pt walked with min assistance to w/c (needed help placing R hand around handle on platform walker). Pt can lock/unlock brake on L side but not R side of w/c. Transported to bathroom for grooming and then to gym. Functional [place] Measure 0=Not Assessed/NA 4=Minimal Assistance 1=Total Assistance 5=Supervision or Setup 2=Maximal Assistance 6=Modified [place] 3=Moderate Assistance 7=Complete IndependenceIRFPAI Quality Coding Scale 6 Independent with activity with or without an assistive device 5 Patient requires set up or clean up by helper. Patient completes activity by themselves 4 Supervision or touching assist (CGA). [place] provide cues , steadying assist 3 The helper provides less than half the effort to complete the activity 2 The helper provides more than half the effort to complete the activity 1 Dependent. The helper does all the effort to complete an activity 7 Patient refused to complete or attempt activity 9 The patient did not perform the activity before the current illness or injury 88 Not attempted due to Medical conditions or safety concerns Grooming (FIM): 5 (setup to clean dentures, comb hair. Washed face and hands. Help to open denture packet) Upper Body (FIM): 5 (setup to doff and don shirt, sitting at EOB. Previously had dificulty maintaining sitting unsuported in w/c for dressing) Lower Body Dressing (FIM): 1 (Two person assist sit to stand when bed elevated. Pt almost mod assist but needs help to place hand on handle of platform walker to get balance so pants can be pulled up. Help to slip shoes on. ) Toileting (FIM): 5 (Pt used urinal while sitting up inw/c. was able to manage clothing and place device but needed help to empty it. ) Other Treatment Pt transported to gym area. Did 2 sets L UE strengthening activity with arc, set at short extension and 1 set with medium extension, all with 1# weight on L wrist. To strengthen arms to help with transfers and ADLs. Pt returned to his room and was left sitting up in w/c, all needs met. Education OT Patient Education: Exercise program, Modified ADL techniques, Purpose of tx/ functional activities, Safety issues, Transfer techniques Teaching Recipient: Patient Teaching Methods: Discussion Response to Teaching: Verbalize Understanding OT Short Term Goals Short Term Goals Time Frame: Oct 13, 2017 Toileting(FIM): 3 Toilet/Commode Transfer(FIM): 3 Shower Transfer(FIM): 3 Additional Short Term Goals: 1-Demonstrate ADL Tasks, 2-Verbalize Understanding , 3-ImproveStrength/Gregorio 1=Demonstrate adherence to instructed precautions during ADL tasks. 2=Patient will verbalize/demonstrate understanding of assistive devices/ modifications for ADL. 3=Patient will improve strength/tolerance for activity to enable patient to perform ADL's. OT Senior Care Goals Senior Care Goals Time Frame: Oct 25, 2017 Eating (FIM): 6 Eating (QC): 6 Groomin Oral Hygiene (QC): 6 Bathing(FIM): 6 Shower/Bathe Self (QC): 6 Upper Body Dressing(FIM): 6 Upper Body Dressing (QC): 6 Lower Body Dressing(FIM): 6 Lower Body Dressing (QC): 6 On/Off Footwear (QC): 6 Toileting(FIM): 6 Toileting Hygiene (QC): 6 Transfers (B,C,W/C) (FIM): 6 Toilet/Commode Transfer(FIM): 6 Toilet/Commode Transfer (QC): 6 Shower Transfer(FIM): 6 Comprehension(FIM): 5 Expression (FIM): 5 Social Interaction(FIM): 6 Problem Solving(FIM): 5 Memory(FIM): 6 Additional Goals: 1-Demonstrate ADL Tasks, 2-Verbalize Understanding, 3- ImproveStrength/Gregorio 1=Demonstrate adherence to instructed precautions during ADL tasks. 2=Patient will verbalize/demonstrate understanding of assistive devices/ modifications for ADL. 3=Patient will improve strength/tolerance for activity to enable patient to perform ADL's. OT Education/Plan Problem List/Assessment Pt would benefit from skilled OT to increase his independence in basic self care to allow him to safely return to his home to live with his and to decrease caregiver burden. Discharge Recommendations Plan/Recommendations: Continue POC Treatment Plan/Plan of Care Patient would benefit from OT for education, treatment and training to promote independence in ADL's, mobility, safety and/or upper extremity function for ADL' s. Plan of Care: ADL Retraining, Functional Mobility, Group Exercise/Act as Ind ( education, exercise, act tolerance, problem solving, funct mobility, communication, socialization), UE Funct Exercise/Act, UE Neuromus Re-Ed/Coord Treatment Duration: Oct 25, 2017 Frequency: At least 5 of 7 days/Wk (IRF) Estimated Hrs Per Day: 1.5 hours per day (1-25 to 1.5) Agreement: Yes Rehab Potential: Good Time/GCodes Start Time: 09:15 Stop Time: 10:00 Total Time Billed (hr/min): 45 Billed Treatment Time visit, 30 minutes ADL, 15 minutes exercise TERE DEL CASTILLO OT Oct 06, 2017 14:07
--- NOTE | 2017-10-06 14:48 | Therapy Group Daily Note ---
Therapy Daily Group Note Other/Notes Each patient participated in group therapy in the common area of rehab. Each patient ambulated or was transported to the common area of rehab and placed in a [place] with the other patients. Each patient then had to introduce themselves , state where they were born and perform a memory activity. Then patient's were educated about all aspects of pain (cause, types, how to relieve, etc). During education intermittently patients performed exercises ran by the therapists involving both upper and lower extremities. Patient's participated in the discussion and problem solving and socialization were encouraged. After group therapy each patient ambulated or was transported back to their room and placed in chair or bed with call light and tray. Start Time: 13:00 Stop Time: 14:20 Total Billed Treatment Time: 80 Total Billed Treatment 1 visit GRP 80' JACKIE GRIDER PT Oct 06, 2017 14:48
[2017-10-06 18:00] VITALS: BP 170/80
[2017-10-06] MEDS ORDERED: FLEET ENEMA ADULT 1 EA BTL PR PRN (19:00)
[2017-10-06] MEDS ORDERED: FLEET ENEMA ADULT 1 EA BTL PR NR (21:00)
[2017-10-06] MEDS: TERAZOSIN 2 MG (HYTRIN) CAP PO SCH (21:21)
[2017-10-06] MEDS: FAMOTIDINE 20 MG (PEPCID) TABLET PO SCH (21:21)
[2017-10-06] MEDS: inSUlin DETERMIR 1 UNIT/0.01 ML (LEVEMIR) CHARGE PER UNIT SQ SCH (21:25)
[2017-10-07 02:00] VITALS: BP 135/70
[2017-10-07] MEDS: inSUlin ASPART (NovoLOG) 1 UNIT/0.01 ML (CHARGE PER UNIT) SC SCH ×4 (05:13→20:55)
[2017-10-07] MEDS: IBUPROFEN 800 MG (MOTRIN) TAB PO SCH ×3 (06:18→16:58)
[2017-10-07] MEDS: OXcarbazepine (TRILEPTAL) 300 MG TAB PO SCH ×2 (10:18→20:54)
[2017-10-07] MEDS: CLOPIDOGREL 75 MG (PLAVIX) TABLET PO SCH (10:18)
[2017-10-07] MEDS: oxyCODONE/APAP 5/325MG (PERCOCET 5) TABLET PO PRN ×2 (10:18→14:59)
[2017-10-07] MEDS: LOSARTAN 50 MG (COZAAR) TAB PO SCH (10:18)
[2017-10-07] MEDS: ALLOPURINOL 100 MG (ZYLOPRIM) TAB PO SCH (10:18)
[2017-10-07] MEDS: amLODIPine 10 MG (NORVASC) TAB PO SCH (10:18)
[2017-10-07] MEDS: SENNA W/DOCUSATE (SENOKOT S) TABLET PO SCH ×2 (10:19→20:54)
--- NOTE | 2017-10-07 10:35 | Occupational Ther Daily Note ---
OT Current Status-Daily Note Subjective Pt in bed, agrees to treatment. Mental Status/Objective Functional [place] Measure 0=Not Assessed/NA 4=Minimal Assistance 1=Total Assistance 5=Supervision or Setup 2=Maximal Assistance 6=Modified [place] 3=Moderate Assistance 7=Complete [place] ADL-Treatment Pt supine to sit with SBA and increased effort using bed rail for assist. Pt sat EOB for sponge bath. Pt able to bathe upper body with set up. Pt washes bilateral upper legs, sita area, and bilateral lower legs, but requires assist for feet. Stood with assist x2 for safety and assist to wash buttocks. Don pullover shirt with set up. Pt able to start pants over feet. Stood with assist x2 for pant hike. Pt states he usually uses a sock aid to don socks. Pt able to place socks on sock aid and dons left sock with SBA. Mod assist to don right sock. Pt donned bilateral shoes with moderate assistance using shoe horn. Transfer to w/c using platform FWW. To restroom via w/c. Pt able to complete denture care with set up. Combed hair without assist. Pt used electric mary and razor to trim moya with increased time. Pt fatigues with activity and requires occasional rest breaks throughout ADL tasks. Functional [place] Measure 0=Not Assessed/NA 4=Minimal Assistance 1=Total Assistance 5=Supervision or Setup 2=Maximal Assistance 6=Modified [place] 3=Moderate Assistance 7=Complete IndependenceIRFPAI Quality Coding Scale 6 Independent with activity with or without an assistive device 5 Patient requires set up or clean up by helper. Patient completes activity by themselves 4 Supervision or touching assist (CGA). [place] provide cues , steadying assist 3 The helper provides less than half the effort to complete the activity 2 The helper provides more than half the effort to complete the activity 1 Dependent. The helper does all the effort to complete an activity 7 Patient refused to complete or attempt activity 9 The patient did not perform the activity before the current illness or injury 88 Not attempted due to Medical conditions or safety concerns Grooming (FIM): 5 Oral Hygiene (QC): 5 Bathing (FIM): 1 Shower/Bathe Self (QC): 1 Upper Body (FIM): 5 Upper Body Dressing (QC): 5 Lower Body Dressing (FIM): 1 Lower Body Dressing (QC): 1 Other Treatment To therapy gym via w/c. Pt performed left UE exercises to increase strength needed for ADLs and transfers. Pt completed arm arc activity with moderate extension with 1# weight in place. Pt completed tabletop peg activity with 1# weight to increase strength and manipulation skills. Pt completed shoulder flexion, abduction, biceps curls, triceps extension, and wrist flex/ext x15 reps with 2# weight. Pt propelled w/c back to room with SBA. Pt sitting in w/c with needs met and RN present after session. OT Short Term Goals Short Term Goals Time Frame: Oct 13, 2017 Toileting(FIM): 3 Toilet/Commode Transfer(FIM): 3 Shower Transfer(FIM): 3 Additional Short Term Goals: 1-Demonstrate ADL Tasks, 2-Verbalize Understanding , 3-ImproveStrength/Gregorio 1=Demonstrate adherence to instructed precautions during ADL tasks. 2=Patient will verbalize/demonstrate understanding of assistive devices/ modifications for ADL. 3=Patient will improve strength/tolerance for activity to enable patient to perform ADL's. OT Custodial Goals Claims Assistant Goals Time Frame: Oct 25, 2017 Eating (FIM): 6 Eating (QC): 6 Groomin Oral Hygiene (QC): 6 Bathing(FIM): 6 Shower/Bathe Self (QC): 6 Upper Body Dressing(FIM): 6 Upper Body Dressing (QC): 6 Lower Body Dressing(FIM): 6 Lower Body Dressing (QC): 6 On/Off Footwear (QC): 6 Toileting(FIM): 6 Toileting Hygiene (QC): 6 Transfers (B,C,W/C) (FIM): 6 Toilet/Commode Transfer(FIM): 6 Toilet/Commode Transfer (QC): 6 Shower Transfer(FIM): 6 Comprehension(FIM): 5 Expression (FIM): 5 Social Interaction(FIM): 6 Problem Solving(FIM): 5 Memory(FIM): 6 Additional Goals: 1-Demonstrate ADL Tasks, 2-Verbalize Understanding, 3- ImproveStrength/Gregorio 1=Demonstrate adherence to instructed precautions during ADL tasks. 2=Patient will verbalize/demonstrate understanding of assistive devices/ modifications for ADL. 3=Patient will improve strength/tolerance for activity to enable patient to perform ADL's. OT Education/Plan Problem List/Assessment Pt would benefit from skilled OT to increase his independence in basic self care to allow him to safely return to his home to live with his and to decrease caregiver burden. Discharge Recommendations Plan/Recommendations: Continue POC Treatment Plan/Plan of Care Patient would benefit from OT for education, treatment and training to promote independence in ADL's, mobility, safety and/or upper extremity function for ADL' s. Plan of Care: ADL Retraining, Functional Mobility, Group Exercise/Act as Ind ( education, exercise, act tolerance, problem solving, funct mobility, communication, socialization), UE Funct Exercise/Act, UE Neuromus Re-Ed/Coord Treatment Duration: Oct 25, 2017 Frequency: At least 5 of 7 days/Wk (IRF) Estimated Hrs Per Day: 1.5 hours per day (1-25 to 1.5) Agreement: Yes Rehab Potential: Good Time/GCodes Start Time: 08:50 Stop Time: 10:20 Total Time Billed (hr/min): 90 Billed Treatment Time 1 visit, ADLx4(60minutes), EXx2(30minutes) ZAHRAA GUERRERO OT Oct 07, 2017 10:35
--- NOTE | 2017-10-07 11:40 | Physical Therapy Daily Note ---
PT Daily Note-Current Subjective Pt agreeable. Just finished with OT. Pt reports (R) knee pain increased this date, reports pain meds taken approximately one hour prior to PT arrival. Pain Numeric Pain Scale: 7 Location: Right Location Body Site: Knee Pain Description: Ache Mental Status Patient Orientation: Person, Place, Time, Situation Transfers Functional [place] Measure 0=Not Assessed/NA 4=Minimal Assistance 1=Total Assistance 5=Supervision or Setup 2=Maximal Assistance 6=Modified [place] 3=Moderate Assistance 7=Complete IndependenceIRFPAI Quality Coding Scale 6 Independent with activity with or without an assistive device 5 Patient requires set up or clean up by helper. Patient completes activity by themselves 4 Supervision or touching assist (CGA). [place] provide cues , steadying assist 3 The helper provides less than half the effort to complete the activity 2 The helper provides more than half the effort to complete the activity 1 Dependent. The helper does all the effort to complete an activity 7 Patient refused to complete or attempt activity 9 The patient did not perform the activity before the current illness or injury 88 Not attempted due to Medical conditions or safety concerns Transfers (B, C, W/C) (FIM): 3 Sit to/from Stand: 3 Sit to Lying (QC): 3 (On (L) hand side of bed at Pt request, assist with (R) LE ) Sit to Stand (QC): 3 Weight Bearing Right Lower Extremity: Right Weight Bearing/Tolerated Left Lower Extremity: Left Full Weight Bearing Gait Training Does the Patient Walk?: Yes Gait (FIM): 2 Distance (FIM): 1=up to 49 ft Distance: 15', 40', 35' Walk 10 feet (QC): 3 Gait Level of Assist: 4 Gait Persons Needed: 1 Gait Assistive Device: FWW Pt ambulated with (R) platform FWW, min A x 1 with [facility] following due to increased (R) knee pain. Seated recovery breaks due to increased (R) knee pain. Pt ambulates with very limited WB on (R) LE, stepping on ball of foot, no heel strike. Exercises Supine Ex: Ankle pumps, Quad Set, Glut sets, Heel Slides Supine Reps: 10 NuStep Minutes: 15 NuStep Workload: 5 Treatments NuStep for (B) integration, functional strengthening, functional activity tolerance and ROM. Gait training with platform FWW. Supine exercises for (B) LE strengthening. In bed with all needs met, (R) UE elevated. Assessment Current Status: Fair Progress Pt tolerated fair, gait limited by (R) knee pain. Pt very motivated. PT Short Term Goals Short Term Goals Time Frame: Oct 11, 2017 Gait (FIM): 2 Distance (FIM): 7=542-28 ft Gait Distance Comment: 100 feet with FWW and armrest for RUE Gait Level of Assist: 4 Gait Assistive Device: Walker Platform Wheelchair (FIM): 3 Wheelchair distance (FIM): 3=150 ft Wheelchair Distance: 50 feet Wheelchair Level of Assist: 5 Stairs (FIM): 1 # of Steps: 1 Stairs Level of Assist: 4 PT Senior Care Goals Senior Care Goals PT Senior Care Goals Time Frame: Oct 25, 2017 Transfers (B,C,W/C) (FIM): 5 Sit to Lying (QC): 4 Lying-Sitting on Side/Bed(QC): 4 Sit to Stand (QC): 4 Rollin Roll Left to Right (QC): 4 Chair/Kff-np-Lnqch Xfer(QC): 4 Car Transfer (QC): 4 Does the Patient Walk: Yes Gait (FIM): 5 Distance: 200 feet Walk 10 feet (QC): 4 Walk 10ft-Uneven Surface(QC): 4 Walk 50ft with 2 Turns (QC): 4 Walk 150 ft (QC): 4 Gait Level of Assist: 5 Gait Assistive Device: Walker Platform Does the Pt use WC or Scooter?: Yes Wheelchair (FIM): 6 Distance: 200 feet Wheelchair Level of Assist: 6 Wheel 50 feet with 2 turns (QC: 6 Stairs (FIM): 2 # of Steps: 4 1 Step (curb) (QC): 4 4 Steps (QC): 4 12 Steps (QC): 88 Stairs Level Of Assist: 5 Picking up an Object (QC): 88 PT Plan Problem List Problem List: Activity Tolerance, Functional Strength, Safety, Balance, Gait, Transfer, Bed Mobility, ROM Treatment/Plan Treatment Plan: Continue Plan of Care Treatment Plan: Bed Mobility, Concurrent Therapy, Education, Functional Activity Gregorio, Functional Strength, Group Therapy, Gait, Safety, Therapeutic Exercise, Transfers Treatment Duration: Oct 25, 2017 Frequency: At least 5 of 7 days/Wk (IRF) Estimated Hrs Per Day: 1.5 hours per day Patient and/or Family Agrees t: Yes Safety Risks/Education Patient Education: Gait Training, Transfer Techniques Teaching Recipient: Patient Teaching Methods: Discussion Response to Teaching: Return Demonstration, Reinforcement Needed Discharge Recommendations Barriers to Progress (R) knee pain Time/GCodes Time In: 1025 Time Out: 1155 Total Billed Treatment Time: 90 Total Billed Treatment 1, Ex x 30', GT x 60' G Codes Necessary: No BOOGIE CARRION DPT Oct 07, 2017 11:40
[2017-10-07 18:00] VITALS: BP 158/79
[2017-10-07] MEDS: FAMOTIDINE 20 MG (PEPCID) TABLET PO SCH (20:54)
[2017-10-07] MEDS: TERAZOSIN 2 MG (HYTRIN) CAP PO SCH (20:54)
[2017-10-07] MEDS: inSUlin DETERMIR 1 UNIT/0.01 ML (LEVEMIR) CHARGE PER UNIT SQ SCH (20:55)
[2017-10-08] MEDS: oxyCODONE/APAP 5/325MG (PERCOCET 5) TABLET PO PRN ×3 (01:51→21:35)
[2017-10-08 05:09] VITALS: BP 158/77
[2017-10-08] MEDS: inSUlin ASPART (NovoLOG) 1 UNIT/0.01 ML (CHARGE PER UNIT) SC SCH ×4 (05:18→21:24)
[2017-10-08] MEDS: IBUPROFEN 800 MG (MOTRIN) TAB PO SCH ×3 (05:18→16:09)
[2017-10-08] MEDS: amLODIPine 10 MG (NORVASC) TAB PO SCH (08:32)
[2017-10-08] MEDS: CLOPIDOGREL 75 MG (PLAVIX) TABLET PO SCH (08:32)
[2017-10-08] MEDS: SENNA W/DOCUSATE (SENOKOT S) TABLET PO SCH ×2 (08:32→21:25)
[2017-10-08] MEDS: LOSARTAN 50 MG (COZAAR) TAB PO SCH (08:32)
[2017-10-08] MEDS: ALLOPURINOL 100 MG (ZYLOPRIM) TAB PO SCH (08:32)
[2017-10-08] MEDS: OXcarbazepine (TRILEPTAL) 300 MG TAB PO SCH ×2 (08:32→21:25)
[2017-10-08 10:31] VITALS: BP 157/83
[2017-10-08 18:52] VITALS: BP 151/74
[2017-10-08] MEDS: FAMOTIDINE 20 MG (PEPCID) TABLET PO SCH (21:24)
[2017-10-08] MEDS: inSUlin DETERMIR 1 UNIT/0.01 ML (LEVEMIR) CHARGE PER UNIT SQ SCH (21:24)
[2017-10-08] MEDS: TERAZOSIN 2 MG (HYTRIN) CAP PO SCH (21:24)
[2017-10-09 02:00] VITALS: BP 144/72
[2017-10-09] MEDS: inSUlin ASPART (NovoLOG) 1 UNIT/0.01 ML (CHARGE PER UNIT) SC SCH ×4 (05:24→21:03)
[2017-10-09] MEDS: IBUPROFEN 800 MG (MOTRIN) TAB PO SCH ×3 (06:12→17:07)
[2017-10-09] MEDS: ALLOPURINOL 100 MG (ZYLOPRIM) TAB PO SCH (08:12)
[2017-10-09] MEDS: LOSARTAN 50 MG (COZAAR) TAB PO SCH (08:12)
[2017-10-09] MEDS: amLODIPine 10 MG (NORVASC) TAB PO SCH (08:12)
[2017-10-09] MEDS: SENNA W/DOCUSATE (SENOKOT S) TABLET PO SCH ×2 (08:12→21:04)
[2017-10-09] MEDS: oxyCODONE/APAP 5/325MG (PERCOCET 5) TABLET PO PRN ×3 (08:12→21:06)
[2017-10-09] MEDS: CLOPIDOGREL 75 MG (PLAVIX) TABLET PO SCH (08:12)
[2017-10-09] MEDS: OXcarbazepine (TRILEPTAL) 300 MG TAB PO SCH ×2 (08:13→21:03)
--- NOTE | 2017-10-09 08:34 | Progress Note (SOAP) ---
Subjective Time Seen by Provider: 08:32 Subjective/Events-last exam atient feeling better. Patient able to get out of bed. Patient walking with help and walker Objective Exam Vital Signs Date Time Temp Pulse Resp B/P (MAP) Pulse Ox O2 Delivery O2 Flow Rate FiO2 10/09/17 02:00 97.8 58 20 144/72 (96) 96 Room Air 10/08/17 20:24 Room Air 10/08/17 18:52 97.9 69 20 151/74 (99) 96 Room Air 10/08/17 10:31 66 157/83 (107) 10/08/17 08:42 Room Air I & O 10/09/17 07:00 Intake Total 1436 ml Output Total 2500 ml Balance -1064 ml Capillary Refill : Less Than 3 Seconds General Appearance: No Apparent Distress, WD/WN HEENT: Normal ENT Inspection Neck: Full Range of Motion, Normal Inspection Respiratory: Lungs Clear, No Accessory Muscle Use Cardiovascular: Regular Rate, Rhythm, No Murmur Results Lab Laboratory Tests 10/08/17 11:06: Glucometer 219H 10/08/17 16:04: Glucometer 333H 10/08/17 20:30: Glucometer 336H 10/09/17 05:23: Glucometer 92 Assessment/Plan Assessment/Plan Assess & Plan/Chief Complaint common quadriceps tendon sprain. Previous CVA. Diabetes. Renal insufficiency. . 10/05/17 , Quadriceps tendon sprain. Previous CVA. Diabetes. Renal insufficiency. sugars are running high. increase Levemir. . 10/06/17 Quadriceps tendon sprain. Previous CVA. Diabetes under good control renal insufficiency. Patient doing better. . 10/09/17. , Quadriceps tendon sprain. Previous CVA. Diabetes. Renal insufficiency Patient getting around better and feeling better about himself Clinical Quality Measures DVT/VTE Risk/Contraindication: Risk Factor Score Per Nursin RFS Level Per Nursing on Admit: 4+=Very High WILLIAN NAGEL DO Oct 09, 2017 08:34
--- NOTE | 2017-10-09 10:39 | Occupational Ther Daily Note ---
OT Current Status-Daily Note Subjective Pt seen in room, up in w/c, agreeable to OT. No pain mentioned. Appearance Alert, cooperative Mental Status/Objective Functional [place] Measure 0=Not Assessed/NA 4=Minimal Assistance 1=Total Assistance 5=Supervision or Setup 2=Maximal Assistance 6=Modified [place] 3=Moderate Assistance 7=Complete [place] ADL-Treatment Pt reported that he had already changed pants but would like to put on a clean shirt. He did not want to do a complete bath but agreed to wash under arms with warm wipes. He was pleased that he has been able to use [facility] for BM over the weekend and this morning. Functional [place] Measure 0=Not Assessed/NA 4=Minimal Assistance 1=Total Assistance 5=Supervision or Setup 2=Maximal Assistance 6=Modified [place] 3=Moderate Assistance 7=Complete IndependenceIRFPAI Quality Coding Scale 6 Independent with activity with or without an assistive device 5 Patient requires set up or clean up by helper. Patient completes activity by themselves 4 Supervision or touching assist (CGA). [place] provide cues , steadying assist 3 The helper provides less than half the effort to complete the activity 2 The helper provides more than half the effort to complete the activity 1 Dependent. The helper does all the effort to complete an activity 7 Patient refused to complete or attempt activity 9 The patient did not perform the activity before the current illness or injury 88 Not attempted due to Medical conditions or safety concerns Grooming (FIM): 6 (Pt was able to position w/c at sink and brush teeth, comb hair, with just a cue to lock brake on w/c) Upper Body (FIM): 5 (Setup to get out clean shirt and put it on. Able to take dirty one off without help. ) Other Treatment After ADLs, pt did 15 reps L UE ex with red theraband (medium resistance), with OT doing pt educ on different exercises and holding the distal end of the band. To strengthen arms to help with transfers and ADLs. Pt left up in w/c, all needs met. Education OT Patient Education: Exercise program, Modified ADL techniques, Safety issues Teaching Recipient: Patient Teaching Methods: Discussion Response to Teaching: Verbalize Understanding, Return Demonstration, Reinforcement Needed OT Short Term Goals Short Term Goals Time Frame: Oct 13, 2017 Toileting(FIM): 3 Toilet/Commode Transfer(FIM): 3 Shower Transfer(FIM): 3 Additional Short Term Goals: 1-Demonstrate ADL Tasks, 2-Verbalize Understanding , 3-ImproveStrength/Gregorio 1=Demonstrate adherence to instructed precautions during ADL tasks. 2=Patient will verbalize/demonstrate understanding of assistive devices/ modifications for ADL. 3=Patient will improve strength/tolerance for activity to enable patient to perform ADL's. OT Intermediate Goals Vocational Guidance Counselor Goals Time Frame: Oct 25, 2017 Eating (FIM): 6 Eating (QC): 6 Groomin Oral Hygiene (QC): 6 Bathing(FIM): 6 Shower/Bathe Self (QC): 6 Upper Body Dressing(FIM): 6 Upper Body Dressing (QC): 6 Lower Body Dressing(FIM): 6 Lower Body Dressing (QC): 6 On/Off Footwear (QC): 6 Toileting(FIM): 6 Toileting Hygiene (QC): 6 Transfers (B,C,W/C) (FIM): 6 Toilet/Commode Transfer(FIM): 6 Toilet/Commode Transfer (QC): 6 Shower Transfer(FIM): 6 Comprehension(FIM): 5 Expression (FIM): 5 Social Interaction(FIM): 6 Problem Solving(FIM): 5 Memory(FIM): 6 Additional Goals: 1-Demonstrate ADL Tasks, 2-Verbalize Understanding, 3- ImproveStrength/Gregorio 1=Demonstrate adherence to instructed precautions during ADL tasks. 2=Patient will verbalize/demonstrate understanding of assistive devices/ modifications for ADL. 3=Patient will improve strength/tolerance for activity to enable patient to perform ADL's. OT Education/Plan Problem List/Assessment Pt would benefit from skilled OT to increase his independence in basic self care to allow him to safely return to his home to live with his and to decrease caregiver burden. Discharge Recommendations Plan/Recommendations: Continue POC Treatment Plan/Plan of Care Patient would benefit from OT for education, treatment and training to promote independence in ADL's, mobility, safety and/or upper extremity function for ADL' s. Plan of Care: ADL Retraining, Functional Mobility, Group Exercise/Act as Ind ( education, exercise, act tolerance, problem solving, funct mobility, communication, socialization), UE Funct Exercise/Act, UE Neuromus Re-Ed/Coord Treatment Duration: Oct 25, 2017 Frequency: At least 5 of 7 days/Wk (IRF) Estimated Hrs Per Day: 1.5 hours per day (1-25 to 1.5) Agreement: Yes Rehab Potential: Good Time/GCodes Start Time: 10:00 Stop Time: 10:30 Total Time Billed (hr/min): 30 Billed Treatment Time visit, 15 minutes ADL, 15 minutes exercise TERE DEL CASTILLO OT Oct 09, 2017 10:39
--- NOTE | 2017-10-09 10:54 | Physical Therapy Daily Note ---
PT Daily Note-Current Subjective States that he is doing better today. Pain Numeric Pain Scale: 3 Location: Right Location Body Site: Knee Transfers Functional [place] Measure 0=Not Assessed/NA 4=Minimal Assistance 1=Total Assistance 5=Supervision or Setup 2=Maximal Assistance 6=Modified [place] 3=Moderate Assistance 7=Complete IndependenceIRFPAI Quality Coding Scale 6 Independent with activity with or without an assistive device 5 Patient requires set up or clean up by helper. Patient completes activity by themselves 4 Supervision or touching assist (CGA). [place] provide cues , steadying assist 3 The helper provides less than half the effort to complete the activity 2 The helper provides more than half the effort to complete the activity 1 Dependent. The helper does all the effort to complete an activity 7 Patient refused to complete or attempt activity 9 The patient did not perform the activity before the current illness or injury 88 Not attempted due to Medical conditions or safety concerns Transfers (B, C, W/C) (FIM): 4 Supine to/from Sit: 4 Sit to/from Stand: 5 Weight Bearing Right Lower Extremity: Right Weight Bearing/Tolerated Left Lower Extremity: Left Full Weight Bearing Gait Training Does the Patient Walk?: Yes Gait (FIM): 5 Distance (FIM): 3=150 ft Distance: 150 x 2 Gait Level of Assist: 5 Gait Persons Needed: 1 Exercises Seated Therapy Exercises: LE Protocol Seated Reps: [address] Ex=Flex, Abd, Ext Standing Reps: 10 NuStep Minutes: 15 NuStep Workload: 6 Assessment Current Status: Excellent Progress Patient did better with gait today. PT Short Term Goals Short Term Goals Time Frame: Oct 11, 2017 Gait (FIM): 2 Distance (FIM): 9=397-84 ft Gait Distance Comment: 100 feet with FWW and armrest for RUE Gait Level of Assist: 4 Gait Assistive Device: Walker Platform Wheelchair (FIM): 3 Wheelchair distance (FIM): 3=150 ft Wheelchair Distance: 50 feet Wheelchair Level of Assist: 5 Stairs (FIM): 1 # of Steps: 1 Stairs Level of Assist: 4 PT Custodial Goals Custodial Goals PT Custodial Goals Time Frame: Oct 25, 2017 Transfers (B,C,W/C) (FIM): 5 Sit to Lying (QC): 4 Lying-Sitting on Side/Bed(QC): 4 Sit to Stand (QC): 4 Rollin Roll Left to Right (QC): 4 Chair/Pcv-yx-Cvwsz Xfer(QC): 4 Car Transfer (QC): 4 Does the Patient Walk: Yes Gait (FIM): 5 Distance: 200 feet Walk 10 feet (QC): 4 Walk 10ft-Uneven Surface(QC): 4 Walk 50ft with 2 Turns (QC): 4 Walk 150 ft (QC): 4 Gait Level of Assist: 5 Gait Assistive Device: Walker Platform Does the Pt use WC or Scooter?: Yes Wheelchair (FIM): 6 Distance: 200 feet Wheelchair Level of Assist: 6 Wheel 50 feet with 2 turns (QC: 6 Stairs (FIM): 2 # of Steps: 4 1 Step (curb) (QC): 4 4 Steps (QC): 4 12 Steps (QC): 88 Stairs Level Of Assist: 5 Picking up an Object (QC): 88 PT Plan Treatment/Plan Treatment Plan: Continue Plan of Care Treatment Plan: Bed Mobility, Concurrent Therapy, Education, Functional Activity Gregorio, Functional Strength, Group Therapy, Gait, Safety, Therapeutic Exercise, Transfers Treatment Duration: Oct 25, 2017 Frequency: At least 5 of 7 days/Wk (IRF) Estimated Hrs Per Day: 1.5 hours per day Patient and/or Family Agrees t: Yes Time/GCodes Time In: 815 Time Out: 930 Total Billed Treatment Time: 15 Total Billed Treatment 1, EX x 60, GT x 15 G Codes Necessary: DIRK Ulloa PT Oct 09, 2017 10:54
--- NOTE | 2017-10-09 11:58 | Physical Therapy Daily Note ---
PT Daily Note-Current Subjective States that he is doing okay. Transfers Functional [place] Measure 0=Not Assessed/NA 4=Minimal Assistance 1=Total Assistance 5=Supervision or Setup 2=Maximal Assistance 6=Modified [place] 3=Moderate Assistance 7=Complete IndependenceIRFPAI Quality Coding Scale 6 Independent with activity with or without an assistive device 5 Patient requires set up or clean up by helper. Patient completes activity by themselves 4 Supervision or touching assist (CGA). [place] provide cues , steadying assist 3 The helper provides less than half the effort to complete the activity 2 The helper provides more than half the effort to complete the activity 1 Dependent. The helper does all the effort to complete an activity 7 Patient refused to complete or attempt activity 9 The patient did not perform the activity before the current illness or injury 88 Not attempted due to Medical conditions or safety concerns Transfers (B, C, W/C) (FIM): 5 Sit to/from Stand: 5 Weight Bearing Right Lower Extremity: Right Weight Bearing/Tolerated Left Lower Extremity: Left Full Weight Bearing Gait Training Gait (FIM): 5 Distance: 100' x 2 Gait Level of Assist: 5 Gait Persons Needed: 1 Gait Assistive Device: FWW Assessment Current Status: Excellent Progress Patient did well with gait. PT Short Term Goals Short Term Goals Time Frame: Oct 11, 2017 Gait (FIM): 2 Distance (FIM): 7=886-41 ft Gait Distance Comment: 100 feet with FWW and armrest for RUE Gait Level of Assist: 4 Gait Assistive Device: Walker Platform Wheelchair (FIM): 3 Wheelchair distance (FIM): 3=150 ft Wheelchair Distance: 50 feet Wheelchair Level of Assist: 5 Stairs (FIM): 1 # of Steps: 1 Stairs Level of Assist: 4 PT Bottle Label Inspector Goals Detention Goals PT Detention Goals Time Frame: Oct 25, 2017 Transfers (B,C,W/C) (FIM): 5 Sit to Lying (QC): 4 Lying-Sitting on Side/Bed(QC): 4 Sit to Stand (QC): 4 Rollin Roll Left to Right (QC): 4 Chair/Sac-ya-Fuqri Xfer(QC): 4 Car Transfer (QC): 4 Does the Patient Walk: Yes Gait (FIM): 5 Distance: 200 feet Walk 10 feet (QC): 4 Walk 10ft-Uneven Surface(QC): 4 Walk 50ft with 2 Turns (QC): 4 Walk 150 ft (QC): 4 Gait Level of Assist: 5 Gait Assistive Device: Walker Platform Does the Pt use WC or Scooter?: Yes Wheelchair (FIM): 6 Distance: 200 feet Wheelchair Level of Assist: 6 Wheel 50 feet with 2 turns (QC: 6 Stairs (FIM): 2 # of Steps: 4 1 Step (curb) (QC): 4 4 Steps (QC): 4 12 Steps (QC): 88 Stairs Level Of Assist: 5 Picking up an Object (QC): 88 PT Plan Treatment/Plan Treatment Plan: Continue Plan of Care Treatment Plan: Bed Mobility, Concurrent Therapy, Education, Functional Activity Gregorio, Functional Strength, Group Therapy, Gait, Safety, Therapeutic Exercise, Transfers Treatment Duration: Oct 25, 2017 Frequency: At least 5 of 7 days/Wk (IRF) Estimated Hrs Per Day: 1.5 hours per day Patient and/or Family Agrees t: Yes Time/GCodes Time In: 1110 Time Out: 1125 Total Billed Treatment Time: 15 Total Billed Treatment 1, GT x 15 DIRK LEE PT Oct 09, 2017 11:58
--- NOTE | 2017-10-09 14:10 | Therapy Group Daily Note ---
Therapy Daily Group Note Patient Education Topic Exercises Exercises LE Seated Exercise, ROM, Stretching, UE Exercise Other/Notes Pt. participated in group therapy this PM which consisted of introduction of self to the group and upper and lower extremity exercises x 10 reps of 12 exercises. Pt. read instructions for a specific exercise aloud and led the group in the exercise. He participated fully with each exercise, occasionally needed min A with the left extremities to achieve full ROM due to hemiparesis. Pt. utilized cognition, socialization, and motor skills during this group session. Pt. returned to room via w/c post session, min A with transfers w/c to bed. Start Time: 12:50 Stop Time: 13:50 Total Billed Treatment Time: 60 Total Billed Treatment 1, GROUP 60' BONNIE DAVEY PT Oct 09, 2017 14:10
--- NOTE | 2017-10-09 17:12 | PM & R (SOAP) Progress Note ---
Subjective Time Seen by Provider: 12:35 Subjective/Events-last exam Patient was seen in his room this noonhour called by Nursing over weekend re patients constipation Enema ordered with relief Patient SBA for transfers Review of Systems Gastrointestinal: Constipation Objective Exam Last Set of Vital Signs Vital Signs Date Time Temp Pulse Resp B/P (MAP) Pulse Ox O2 Delivery O2 Flow Rate FiO2 10/09/17 08:00 Room Air 10/09/17 02:00 97.8 58 20 144/72 (96) 96 Capillary Refill : Less Than 3 Seconds I&O Intake and Output 10/09/17 00:00 Intake Total 1626 ml Output Total 2000 ml Balance -374 ml Intake Oral 1626 ml Output Urine Total 2000 ml General: Alert, Oriented X3, Cooperative, No Acute Distress HEENT: Atraumatic, PERRLA, EOMI, Mucous Memb Moist/[place], Other (mild expressive aphasia) Neck: Supple, No JVD Lungs: Clear to Auscultation Heart: Regular Rate Abdomen: Normal Bowel Sounds, Soft, No Tenderness Extremities: No Edema Neuro: Other (Mild rt HP has antigravity strength RT knee in immobilizer) Results Lab Laboratory Tests 10/06/17 21:14: Glucometer 252H 10/07/17 04:29: Glucometer 111H 10/07/17 11:21: Glucometer 256H 10/07/17 16:31: Glucometer 178H 10/07/17 20:49: Glucometer 188H 10/08/17 05:17: Glucometer 108 10/08/17 11:06: Glucometer 219H 10/08/17 16:04: Glucometer 333H 10/08/17 20:30: Glucometer 336H 10/09/17 05:23: Glucometer 92 10/09/17 11:17: Glucometer 219H 10/09/17 15:50: Glucometer 153H Assessment/Plan Assessment Fall with Knee pain Quadriceps strain Prior RT TKR DR Dimas [facility] approx 2007 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
[2017-10-09 17:41] VITALS: BP 159/76
[2017-10-09] MEDS: FAMOTIDINE 20 MG (PEPCID) TABLET PO SCH (21:03)
[2017-10-09] MEDS: TERAZOSIN 2 MG (HYTRIN) CAP PO SCH (21:03)
[2017-10-09] MEDS: inSUlin DETERMIR 1 UNIT/0.01 ML (LEVEMIR) CHARGE PER UNIT SQ SCH (21:03)
[2017-10-10] MEDS: inSUlin ASPART (NovoLOG) 1 UNIT/0.01 ML (CHARGE PER UNIT) SC SCH ×4 (05:52→21:06)
[2017-10-10 06:30] VITALS: BP 139/84
[2017-10-10] MEDS: IBUPROFEN 800 MG (MOTRIN) TAB PO SCH ×3 (06:46→17:14)
--- NOTE | 2017-10-10 08:17 | Progress Note (SOAP) ---
Subjective Time Seen by Provider: 08:15 Subjective/Events-last exam atient improving. Patient knee pain 5 out of 10 without pain medicine. Patient using his walker much. Objective Exam Vital Signs Date Time Temp Pulse Resp B/P (MAP) Pulse Ox O2 Delivery O2 Flow Rate FiO2 10/10/17 06:30 98.1 65 17 139/84 (102) 95 Room Air 10/09/17 20:00 Room Air 10/09/17 17:41 96.9 59 20 159/76 (103) 98 Room Air I & O 10/10/17 07:00 Intake Total 1160 ml Output Total 2150 ml Balance -990 ml Capillary Refill : Less Than 3 Seconds General Appearance: No Apparent Distress, WD/WN HEENT: Normal ENT Inspection Neck: Full Range of Motion Results Lab Laboratory Tests 10/09/17 11:17: Glucometer 219H 10/09/17 15:50: Glucometer 153H 10/09/17 20:49: Glucometer 277H 10/10/17 05:20: Glucometer 103 Assessment/Plan Assessment/Plan Assess & Plan/Chief Complaint common quadriceps tendon sprain. Previous CVA. Diabetes. Renal insufficiency. . 10/05/17 , Quadriceps tendon sprain. Previous CVA. Diabetes. Renal insufficiency. sugars are running high. increase Levemir. . 10/06/17 Quadriceps tendon sprain. Previous CVA. Diabetes under good control renal insufficiency. Patient doing better. . 10/09/17. , Quadriceps tendon sprain. Previous CVA. Diabetes. Renal insufficiency Patient getting around better and feeling better about himself. . , Quadriceps tendon sprain. *CVA. 10/10/17. patient slowly improving Clinical Quality Measures DVT/VTE Risk/Contraindication: Risk Factor Score Per Nursin RFS Level Per Nursing on Admit: 4+=Very High WILLIAN NAGEL DO Oct 10, 2017 08:17
[2017-10-10] MEDS: amLODIPine 10 MG (NORVASC) TAB PO SCH (08:39)
[2017-10-10] MEDS: SENNA W/DOCUSATE (SENOKOT S) TABLET PO SCH ×3 (08:39→21:06)
[2017-10-10] MEDS: CLOPIDOGREL 75 MG (PLAVIX) TABLET PO SCH (08:39)
[2017-10-10] MEDS: ALLOPURINOL 100 MG (ZYLOPRIM) TAB PO SCH (08:39)
[2017-10-10] MEDS: OXcarbazepine (TRILEPTAL) 300 MG TAB PO SCH ×2 (08:39→21:06)
[2017-10-10] MEDS: LOSARTAN 50 MG (COZAAR) TAB PO SCH (08:39)
[2017-10-10] MEDS: oxyCODONE/APAP 5/325MG (PERCOCET 5) TABLET PO PRN ×3 (08:39→21:06)
--- NOTE | 2017-10-10 09:01 | Physical Therapy Daily Note ---
PT Daily Note-Current Subjective Pt is laying in bed pre tx and agrees to PT. Pt c/o pain at 5/10 and has not taken his pain pill yet this morning. Pain Numeric Pain Scale: 5-Moderate Pain Location: Right Location Body Site: Knee Appearance Pt is sitting in [facility] post tx with tray, remote, and phone within reach. Mental Status Patient Orientation: Person, Place, Situation Transfers Functional [place] Measure 0=Not Assessed/NA 4=Minimal Assistance 1=Total Assistance 5=Supervision or Setup 2=Maximal Assistance 6=Modified [place] 3=Moderate Assistance 7=Complete IndependenceIRFPAI Quality Coding Scale 6 Independent with activity with or without an assistive device 5 Patient requires set up or clean up by helper. Patient completes activity by themselves 4 Supervision or touching assist (CGA). [place] provide cues , steadying assist 3 The helper provides less than half the effort to complete the activity 2 The helper provides more than half the effort to complete the activity 1 Dependent. The helper does all the effort to complete an activity 7 Patient refused to complete or attempt activity 9 The patient did not perform the activity before the current illness or injury 88 Not attempted due to Medical conditions or safety concerns Transfers (B, C, W/C) (FIM): 3 Scootin Rollin Supine to/from Sit: 3 Sit to/from Stand: 4 Bed to/from Chair: 3 Due to knee strain, pt requires mod A during supine to sit transfer to the R. To the L, he requires CGA. Weight Bearing Right Lower Extremity: Right Weight Bearing/Tolerated Left Lower Extremity: Left Full Weight Bearing Gait Training Does the Patient Walk?: Yes Gait (FIM): 4 Distance: 200 feet Gait Level of Assist: 4 Gait Persons Needed: 1 Gait Assistive Device: Walker Platform Pt does not extend R knee during ambulation and diminishes stance phase on the RLE. Flexed knees bilaterally during ambulation, slow, antalgic. Wheelchair Training Does the Pt Use a Wheelchair?: Yes Wheelchair (FIM): 5 Distance: 200 feet Wheelchair Level of Assist: 5 Type of Wheelchair: Manual Exercises Supine Ex: Short Arc Quads (10 x1 isatu, Eccentric lowering 10 x1) Seated Therapy Exercises: Long arc quads (10 x1 isatu), Hamstring Curls (10 x1 isatu) Treatments Pt participated in bed mobility, gait training, and functional activity. Assessment Current Status: Fair Progress Pt is able to passively reach full R knee extension. Due to pain and weakness, pt cannot actively fully extend his R knee. Pt is able to tolerate walking at least 200 feet with CGA. PT Short Term Goals Short Term Goals Time Frame: Oct 11, 2017 Gait (FIM): 2 Distance (FIM): 2=621-69 ft Gait Distance Comment: 100 feet with FWW and armrest for RUE Gait Level of Assist: 4 Gait Assistive Device: Walker Platform Wheelchair (FIM): 3 Wheelchair distance (FIM): 3=150 ft Wheelchair Distance: 50 feet Wheelchair Level of Assist: 5 Stairs (FIM): 1 # of Steps: 1 Stairs Level of Assist: 4 PT Usp Goals Usp Goals PT Dry Kiln Operator Helper Goals Time Frame: Oct 25, 2017 Transfers (B,C,W/C) (FIM): 5 Sit to Lying (QC): 4 Lying-Sitting on Side/Bed(QC): 4 Sit to Stand (QC): 4 Rollin Roll Left to Right (QC): 4 Chair/Hbm-ha-Sgnvk Xfer(QC): 4 Car Transfer (QC): 4 Does the Patient Walk: Yes Gait (FIM): 5 Distance: 200 feet Walk 10 feet (QC): 4 Walk 10ft-Uneven Surface(QC): 4 Walk 50ft with 2 Turns (QC): 4 Walk 150 ft (QC): 4 Gait Level of Assist: 5 Gait Assistive Device: Walker Platform Does the Pt use WC or Scooter?: Yes Wheelchair (FIM): 6 Distance: 200 feet Wheelchair Level of Assist: 6 Wheel 50 feet with 2 turns (QC: 6 Stairs (FIM): 2 # of Steps: 4 1 Step (curb) (QC): 4 4 Steps (QC): 4 12 Steps (QC): 88 Stairs Level Of Assist: 5 Picking up an Object (QC): 88 PT Plan Problem List Problem List: Activity Tolerance, Functional Strength, Safety, Balance, Gait, Transfer, Bed Mobility, ROM Treatment/Plan Treatment Plan: Continue Plan of Care Treatment Plan: Bed Mobility, Concurrent Therapy, Education, Functional Activity Gregorio, Functional Strength, Group Therapy, Gait, Safety, Therapeutic Exercise, Transfers Treatment Duration: Oct 25, 2017 Frequency: At least 5 of 7 days/Wk (IRF) Estimated Hrs Per Day: 1.5 hours per day Patient and/or Family Agrees t: Yes Safety Risks/Education Patient Education: Gait Training, Transfer Techniques, Correct Positioning, W/ C Management, Safety Issues Teaching Recipient: Patient Teaching Methods: Demonstration, Discussion Response to Teaching: Verbalize Understanding, Return Demonstration, Reinforcement Needed Time/GCodes Time In: 800 Time Out: 900 Total Billed Treatment Time: 60 Total Billed Treatment 1 visit 20 min GT 15 min FA 25 min JACKIE GUZMAN PT Oct 10, 2017 09:01
--- NOTE | 2017-10-10 10:57 | Speech Therapy Daily Note ---
Speech Daily Progress Note Subjective Date Seen by Provider: Oct 10, 2017 Time Seen by Provider: 10:00 The patient was laying in bed upon entrance. The patient greeted the clinician and was agreeable to participation in the language treatment session. Objective Informal Word-Finding: The patient was asked to participate in conversation with the clinician to work on word-finding strategies through impromptu interactions. The patient demonstrates consistent pauses and delays, as well as , halts in conversation. With cues to use synonyms or gestures, the patients pauses became less frequent but remained. The patient does grow frustrated with word-finding errors, often rubbing his forehead and ceasing the conversation. Synonyms and Opposites: The patient displayed great difficulty with providing synonyms and opposites, demonstrating less than 60% accuracy with moderate clinician prompting. Assessment Assessment Current Status: Fair Progress Treatment Plan Continue Plan of Care Communication Comprehension: 5 Expression: 4 (A little difficult to understand at times) Social Cognition Social Interaction: 5 Problem Solvin Memory: 6 Speech Short Term Goals Short Term Goals Short Term Goals 1. The patient will recall and demonstrate three word-finding strategies with mild clinician verbal prompting. 2. The patient will display 80% accuracy with structured word-finding tasks with mild clinician verbal prompting. Time Frame-STG: Ten Days Speech Care Home Goals [place] Splitter Operator Goals 1. The patient will demonstrate improved expressive communication for increased function and safety with ADL's in the least restrictive setting. Time Frame: Two Weeks Comprehension: 5 Expression: 5 Social Interaction: 6 Problem Solvin Memory: 6 Speech-Plan Treatment Plan Speech Therapy Treatment Plan: Continue Plan of Care Continue skilled speech pathology to target functional expressive communication. Treatment Duration: Oct 18, 2017 Frequency: Modified Program (IRF) (Four to five times per day.) Estimated Hrs Per Day: .5 hour per day Rehab Potential: Good Safety Risks/Education Teaching Recipient: Patient Teaching Methods: Discussion Response to Teaching: Verbalize Understanding Education Topics Provided: Word-Finding Strategies Time Speech Therapy Time In: 10:00 Speech Therapy Time Out: 10:30 Total Billed Time: 30 Billed Treatment Time JESSICA Jimenez [facility] Oct 10, 2017 10:57
--- NOTE | 2017-10-10 11:20 | PM & R (SOAP) Progress Note ---
Subjective Time Seen by Provider: 08:15 Subjective/Events-last exam Patient was seen in his room this AM Progressing well with therapies.Pain decreased in knee Patient Mod assist for transfers Objective Exam Last Set of Vital Signs Vital Signs Date Time Temp Pulse Resp B/P (MAP) Pulse Ox O2 Delivery O2 Flow Rate FiO2 10/10/17 08:45 Room Air 10/10/17 06:30 98.1 65 17 139/84 (102) 95 Capillary Refill : Less Than 3 Seconds I&O Intake and Output 10/10/17 00:00 Intake Total 1320 ml Output Total 2200 ml Balance -880 ml Intake Oral 1320 ml Output Urine Total 2200 ml # Bowel Movements 1 General: Alert, Oriented X3, Cooperative, No Acute Distress HEENT: Atraumatic, PERRLA, EOMI, Mucous Memb Moist/[place], Other (mild expressive aphasia) Neck: Supple, No JVD Lungs: Clear to Auscultation Heart: Regular Rate Abdomen: Normal Bowel Sounds, Soft, No Tenderness Extremities: No Edema Neuro: Other (Mild rt HP has antigravity strength RT knee in immobilizer) Results Lab Laboratory Tests 10/07/17 11:21: Glucometer 256H 10/07/17 16:31: Glucometer 178H 10/07/17 20:49: Glucometer 188H 10/08/17 05:17: Glucometer 108 10/08/17 11:06: Glucometer 219H 10/08/17 16:04: Glucometer 333H 10/08/17 20:30: Glucometer 336H 10/09/17 05:23: Glucometer 92 10/09/17 11:17: Glucometer 219H 10/09/17 15:50: Glucometer 153H 10/09/17 20:49: Glucometer 277H 10/10/17 05:20: Glucometer 103 10/10/17 11:07: Glucometer 244H Assessment/Plan Assessment Fall with Knee pain Quadriceps strain Prior RT TKR DR Dimas [facility] approx 2007 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
--- NOTE | 2017-10-10 12:54 | Occupational Ther Daily Note ---
OT Current Status-Daily Note Subjective Pt seen in room, up in w/c, agreeable to OT. Still wants to shower today. No pain mentioned. Appearance Alert, cooperative Mental Status/Objective Functional [place] Measure 0=Not Assessed/NA 4=Minimal Assistance 1=Total Assistance 5=Supervision or Setup 2=Maximal Assistance 6=Modified [place] 3=Moderate Assistance 7=Complete Wheeler ADL-Treatment . Min assist sit to stand and CGA walking into bathroom, needing help to get R hand on platform and handle. Mod assist getting on and off shower bench, using grab bars and FWW. Also mod assist getting on and off tall toilet, using grab bars and FWW. Pt walked back to room and got into bed with SBA, resting for speech therapy. Pt reported that he had a "mental block" about using shower chair and regular toilet but he was pleased with how well he did. Pt left up in bed, all needs met. Functional [place] Measure 0=Not Assessed/NA 4=Minimal Assistance 1=Total Assistance 5=Supervision or Setup 2=Maximal Assistance 6=Modified [place] 3=Moderate Assistance 7=Complete IndependenceIRFPAI Quality Coding Scale 6 Independent with activity with or without an assistive device 5 Patient requires set up or clean up by helper. Patient completes activity by themselves 4 Supervision or touching assist (CGA). [place] provide cues , steadying assist 3 The helper provides less than half the effort to complete the activity 2 The helper provides more than half the effort to complete the activity 1 Dependent. The helper does all the effort to complete an activity 7 Patient refused to complete or attempt activity 9 The patient did not perform the activity before the current illness or injury 88 Not attempted due to Medical conditions or safety concerns Grooming (FIM): 4 (Stood at sink with CGA, FWW to clean teeth. leaned against sink and also helped support self with R UE on platform walker. ) Bathing (FIM): 4 (Washed and dried all parts except bottom. needed min assist and CGA to wash bottom, when standing, Shower bench, grab bar, hand held shower) Upper Body (FIM): 5 (Doffed and donned t shirt with setup) Lower Body Dressing (FIM): 4 (Min assist sit to stand, CGA when standing at platform walker. Able to get socks on using sock aid and get regular shoes with elasatic laces on with metal shoe horn. Able to get pants over legs and pull them up. ) Toilet/Commode Transfer (FIM): 3 (Mod assist getting on and off tall toilet, with grab bar, FWW with platform) Education OT Patient Education: Modified ADL techniques, Progress toward Goal/Update tx plan, Purpose of tx/functional activities, Transfer techniques Teaching Recipient: Patient Teaching Methods: Demonstration, Discussion Response to Teaching: Return Demonstration, Reinforcement Needed OT Short Term Goals Short Term Goals Time Frame: Oct 13, 2017 Toileting(FIM): 3 Toilet/Commode Transfer(FIM): 3 Shower Transfer(FIM): 3 Additional Short Term Goals: 1-Demonstrate ADL Tasks, 2-Verbalize Understanding , 3-ImproveStrength/Gregorio 1=Demonstrate adherence to instructed precautions during ADL tasks. 2=Patient will verbalize/demonstrate understanding of assistive devices/ modifications for ADL. 3=Patient will improve strength/tolerance for activity to enable patient to perform ADL's. OT Assisted Goals Lab Rep Goals Time Frame: Oct 25, 2017 Eating (FIM): 6 Eating (QC): 6 Groomin Oral Hygiene (QC): 6 Bathing(FIM): 6 Shower/Bathe Self (QC): 6 Upper Body Dressing(FIM): 6 Upper Body Dressing (QC): 6 Lower Body Dressing(FIM): 6 Lower Body Dressing (QC): 6 On/Off Footwear (QC): 6 Toileting(FIM): 6 Toileting Hygiene (QC): 6 Transfers (B,C,W/C) (FIM): 6 Toilet/Commode Transfer(FIM): 6 Toilet/Commode Transfer (QC): 6 Shower Transfer(FIM): 6 Comprehension(FIM): 5 Expression (FIM): 5 Social Interaction(FIM): 6 Problem Solving(FIM): 5 Memory(FIM): 6 Additional Goals: 1-Demonstrate ADL Tasks, 2-Verbalize Understanding, 3- ImproveStrength/Gregorio 1=Demonstrate adherence to instructed precautions during ADL tasks. 2=Patient will verbalize/demonstrate understanding of assistive devices/ modifications for ADL. 3=Patient will improve strength/tolerance for activity to enable patient to perform ADL's. OT Education/Plan Problem List/Assessment Pt would benefit from skilled OT to increase his independence in basic self care to allow him to safely return to his home to live with his and to decrease caregiver burden. Discharge Recommendations Plan/Recommendations: Continue POC Treatment Plan/Plan of Care Patient would benefit from OT for education, treatment and training to promote independence in ADL's, mobility, safety and/or upper extremity function for ADL' s. Plan of Care: ADL Retraining, Functional Mobility, Group Exercise/Act as Ind ( education, exercise, act tolerance, problem solving, funct mobility, communication, socialization), UE Funct Exercise/Act, UE Neuromus Re-Ed/Coord Treatment Duration: Oct 25, 2017 Frequency: At least 5 of 7 days/Wk (IRF) Estimated Hrs Per Day: 1.5 hours per day (1-25 to 1.5) Agreement: Yes Rehab Potential: Good Time/GCodes Start Time: 10:00 Stop Time: 10:45 Total Time Billed (hr/min): 45 Billed Treatment Time visit, 45 minutes ADL TERE DEL CASTILLO OT Oct 10, 2017 12:54
--- NOTE | 2017-10-10 13:59 | Physical Therapy Daily Note ---
PT Daily Note-Current Subjective Pt is sitting in [facility] pre tx in therapy gym and agrees to PT. Pain Numeric Pain Scale: 0-No Pain Appearance Pt is sitting in [facility] in room post tx with phone, remote, and tray within reach. Mental Status Patient Orientation: Person, Place, Situation Transfers Functional [place] Measure 0=Not Assessed/NA 4=Minimal Assistance 1=Total Assistance 5=Supervision or Setup 2=Maximal Assistance 6=Modified [place] 3=Moderate Assistance 7=Complete IndependenceIRFPAI Quality Coding Scale 6 Independent with activity with or without an assistive device 5 Patient requires set up or clean up by helper. Patient completes activity by themselves 4 Supervision or touching assist (CGA). [place] provide cues , steadying assist 3 The helper provides less than half the effort to complete the activity 2 The helper provides more than half the effort to complete the activity 1 Dependent. The helper does all the effort to complete an activity 7 Patient refused to complete or attempt activity 9 The patient did not perform the activity before the current illness or injury 88 Not attempted due to Medical conditions or safety concerns Transfers (B, C, W/C) (FIM): 4 Scootin Sit to/from Stand: 4 Patient can perform transfers with min assist but needs extra time and careful cues for positioning. Weight Bearing Right Lower Extremity: Right Weight Bearing/Tolerated Left Lower Extremity: Left Full Weight Bearing Gait Training Does the Patient Walk?: Yes Wheelchair Training Does the Pt Use a Wheelchair?: Yes Wheelchair (FIM): 5 Distance: 150 feet Wheelchair Level of Assist: 5 Type of Wheelchair: Manual Exercises NuStep workload at 4 for 5 min, 5 for 5 min, 6 for 5 min. NuStep Minutes: 15 NuStep Workload: 6 Treatments Pt performed functional mobility and LE strengthening. Assessment Current Status: Good Progress During NuStep pt tends to internally rotate his hip on the right side. Pt is able to tolerate 15 of NuStep at increased workload. PT Short Term Goals Short Term Goals Time Frame: Oct 11, 2017 Gait (FIM): 2 Distance (FIM): 0=804-00 ft Gait Distance Comment: 100 feet with FWW and armrest for RUE Gait Level of Assist: 4 Gait Assistive Device: Walker Platform Wheelchair (FIM): 3 Wheelchair distance (FIM): 3=150 ft Wheelchair Distance: 200 feet Wheelchair Level of Assist: 5 Stairs (FIM): 1 # of Steps: 1 Stairs Level of Assist: 4 PT Sr. Merchandise Planner Goals Sr. Merchandise Planner Goals PT Chcf Goals Time Frame: Oct 25, 2017 Transfers (B,C,W/C) (FIM): 5 Sit to Lying (QC): 4 Lying-Sitting on Side/Bed(QC): 4 Sit to Stand (QC): 4 Rollin Roll Left to Right (QC): 4 Chair/Kua-nl-Znath Xfer(QC): 4 Car Transfer (QC): 4 Does the Patient Walk: Yes Gait (FIM): 5 Distance: 200 feet Walk 10 feet (QC): 4 Walk 10ft-Uneven Surface(QC): 4 Walk 50ft with 2 Turns (QC): 4 Walk 150 ft (QC): 4 Gait Level of Assist: 5 Gait Assistive Device: Walker Platform Does the Pt use WC or Scooter?: Yes Wheelchair (FIM): 6 Distance: 200 feet Wheelchair Level of Assist: 6 Wheel 50 feet with 2 turns (QC: 6 Stairs (FIM): 2 # of Steps: 4 1 Step (curb) (QC): 4 4 Steps (QC): 4 12 Steps (QC): 88 Stairs Level Of Assist: 5 Picking up an Object (QC): 88 PT Plan Problem List Problem List: Activity Tolerance, Functional Strength, Safety, Balance, Gait, Transfer, Bed Mobility, ROM Treatment/Plan Treatment Plan: Continue Plan of Care Treatment Plan: Bed Mobility, Concurrent Therapy, Education, Functional Activity Gregorio, Functional Strength, Group Therapy, Gait, Safety, Therapeutic Exercise, Transfers Treatment Duration: Oct 25, 2017 Frequency: At least 5 of 7 days/Wk (IRF) Estimated Hrs Per Day: 1.5 hours per day Patient and/or Family Agrees t: Yes Safety Risks/Education Patient Education: Transfer Techniques, Correct Positioning, W/C Management, Safety Issues Teaching Recipient: Patient Teaching Methods: Demonstration, Discussion Response to Teaching: Verbalize Understanding, Return Demonstration, Reinforcement Needed Time/GCodes Time In: 1330 Time Out: 1400 Total Billed Treatment Time: 30 Total Billed Treatment 1 visit 15 min FA 15 min EX JACKIE GRIDER PT Oct 10, 2017 13:59
--- NOTE | 2017-10-10 14:51 | Occupational Ther Daily Note ---
OT Current Status-Daily Note Subjective Pt seen in room, up in bed, agreeable to OT. No pain mentioned. Appearance Alert, cooperative Mental Status/Objective Functional [place] Measure 0=Not Assessed/NA 4=Minimal Assistance 1=Total Assistance 5=Supervision or Setup 2=Maximal Assistance 6=Modified [place] 3=Moderate Assistance 7=Complete [place] ADL-Treatment Functional [place] Measure 0=Not Assessed/NA 4=Minimal Assistance 1=Total Assistance 5=Supervision or Setup 2=Maximal Assistance 6=Modified [place] 3=Moderate Assistance 7=Complete IndependenceIRFPAI Quality Coding Scale 6 Independent with activity with or without an assistive device 5 Patient requires set up or clean up by helper. Patient completes activity by themselves 4 Supervision or touching assist (CGA). [place] provide cues , steadying assist 3 The helper provides less than half the effort to complete the activity 2 The helper provides more than half the effort to complete the activity 1 Dependent. The helper does all the effort to complete an activity 7 Patient refused to complete or attempt activity 9 The patient did not perform the activity before the current illness or injury 88 Not attempted due to Medical conditions or safety concerns Other Treatment Pt was able to get from supine to sit EOB with SBA. Sit to stand from bed with min assist when bed elevated. pt struggled with where to place L hand. Requires help to get R hand on platform due to increased tone. Pt walked about 10 feet to w/c, CGA, FWW with platform, and was able to disengage R hand and sit in w/c with CGA. Pt used urinal with setup and help emptying it. Pt propelled himself to gym (able to get footrest in place and lock L brake but not R one). Did arc activity x2 sets with short extension and 1 set with medium extension, with 2# weight on L UE. Also did peg activity with 2# weight on L (increase in resistance). Care transferred to PT. Education OT Patient Education: Exercise program, Progress toward Goal/Update tx plan, Purpose of tx/functional activities Teaching Recipient: Patient Teaching Methods: Discussion Response to Teaching: Verbalize Understanding OT Short Term Goals Short Term Goals Time Frame: Oct 13, 2017 Toileting(FIM): 3 Toilet/Commode Transfer(FIM): 3 Shower Transfer(FIM): 3 Additional Short Term Goals: 1-Demonstrate ADL Tasks, 2-Verbalize Understanding , 3-ImproveStrength/Gregorio 1=Demonstrate adherence to instructed precautions during ADL tasks. 2=Patient will verbalize/demonstrate understanding of assistive devices/ modifications for ADL. 3=Patient will improve strength/tolerance for activity to enable patient to perform ADL's. OT Travel Registered Nurse Oncology Goals Assisted Goals Time Frame: Oct 25, 2017 Eating (FIM): 6 Eating (QC): 6 Groomin Oral Hygiene (QC): 6 Bathing(FIM): 6 Shower/Bathe Self (QC): 6 Upper Body Dressing(FIM): 6 Upper Body Dressing (QC): 6 Lower Body Dressing(FIM): 6 Lower Body Dressing (QC): 6 On/Off Footwear (QC): 6 Toileting(FIM): 6 Toileting Hygiene (QC): 6 Transfers (B,C,W/C) (FIM): 6 Toilet/Commode Transfer(FIM): 6 Toilet/Commode Transfer (QC): 6 Shower Transfer(FIM): 6 Comprehension(FIM): 5 Expression (FIM): 5 Social Interaction(FIM): 6 Problem Solving(FIM): 5 Memory(FIM): 6 Additional Goals: 1-Demonstrate ADL Tasks, 2-Verbalize Understanding, 3- ImproveStrength/Gregorio 1=Demonstrate adherence to instructed precautions during ADL tasks. 2=Patient will verbalize/demonstrate understanding of assistive devices/ modifications for ADL. 3=Patient will improve strength/tolerance for activity to enable patient to perform ADL's. OT Education/Plan Problem List/Assessment Pt would benefit from skilled OT to increase his independence in basic self care to allow him to safely return to his home to live with his and to decrease caregiver burden. Discharge Recommendations Plan/Recommendations: Continue POC Treatment Plan/Plan of Care Patient would benefit from OT for education, treatment and training to promote independence in ADL's, mobility, safety and/or upper extremity function for ADL' s. Plan of Care: ADL Retraining, Functional Mobility, Group Exercise/Act as Ind ( education, exercise, act tolerance, problem solving, funct mobility, communication, socialization), UE Funct Exercise/Act, UE Neuromus Re-Ed/Coord Treatment Duration: Oct 25, 2017 Frequency: At least 5 of 7 days/Wk (IRF) Estimated Hrs Per Day: 1.5 hours per day (1-25 to 1.5) Agreement: Yes Rehab Potential: Good Time/GCodes Start Time: 13:00 Stop Time: 13:30 Total Time Billed (hr/min): 30 Billed Treatment Time visit, 10 minutes functional activity, 20 minutes exercise TERE DEL CASTILLO OT Oct 10, 2017 14:51
[2017-10-10 18:33] VITALS: BP 135/73
[2017-10-10] MEDS: TERAZOSIN 2 MG (HYTRIN) CAP PO SCH (21:06)
[2017-10-10] MEDS: FAMOTIDINE 20 MG (PEPCID) TABLET PO SCH (21:06)
[2017-10-10] MEDS: inSUlin DETERMIR 1 UNIT/0.01 ML (LEVEMIR) CHARGE PER UNIT SQ SCH (21:06)
[2017-10-11 04:53] VITALS: BP 121/71
[2017-10-11] MEDS: inSUlin ASPART (NovoLOG) 1 UNIT/0.01 ML (CHARGE PER UNIT) SC SCH ×4 (06:05→20:37)
[2017-10-11] MEDS: IBUPROFEN 800 MG (MOTRIN) TAB PO SCH ×3 (06:07→16:09)
[2017-10-11] MEDS: amLODIPine 10 MG (NORVASC) TAB PO SCH (07:21)
[2017-10-11] MEDS: oxyCODONE/APAP 5/325MG (PERCOCET 5) TABLET PO PRN ×4 (07:21→20:37)
[2017-10-11] MEDS: LOSARTAN 50 MG (COZAAR) TAB PO SCH (07:21)
[2017-10-11] MEDS: OXcarbazepine (TRILEPTAL) 300 MG TAB PO SCH ×2 (07:21→20:36)
[2017-10-11] MEDS: CLOPIDOGREL 75 MG (PLAVIX) TABLET PO SCH (07:21)
[2017-10-11] MEDS: ALLOPURINOL 100 MG (ZYLOPRIM) TAB PO SCH (07:22)
--- NOTE | 2017-10-11 08:17 | Progress Note (SOAP) ---
Subjective Time Seen by Provider: 08:15 Subjective/Events-last exam common quadriceps tendon sprain.. Patient one-person assist Patient a work in progress Objective Exam Vital Signs Date Time Temp Pulse Resp B/P (MAP) Pulse Ox O2 Delivery O2 Flow Rate FiO2 10/11/17 04:53 97.8 61 20 121/71 (88) 96 Room Air 10/10/17 20:00 Room Air 10/10/17 18:33 97.1 66 14 135/73 (93) 99 Room Air 10/10/17 13:35 Room Air 10/10/17 08:45 Room Air I & O 10/11/17 07:00 Intake Total 1130 ml Output Total 2040 ml Balance -910 ml Capillary Refill : Less Than 3 Seconds General Appearance: No Apparent Distress, WD/WN Results Lab Laboratory Tests 10/10/17 11:07: Glucometer 244H 10/10/17 16:09: Glucometer 182H 10/10/17 20:28: Glucometer 287H 10/11/17 05:01: Glucometer 89 Assessment/Plan Assessment/Plan Assess & Plan/Chief Complaint common quadriceps tendon sprain. Previous CVA. Diabetes. Renal insufficiency. . 10/05/17 , Quadriceps tendon sprain. Previous CVA. Diabetes. Renal insufficiency. sugars are running high. increase Levemir. . 10/06/17 Quadriceps tendon sprain. Previous CVA. Diabetes under good control renal insufficiency. Patient doing better. . 10/09/17. , Quadriceps tendon sprain. Previous CVA. Diabetes. Renal insufficiency Patient getting around better and feeling better about himself. . , Quadriceps tendon sprain. *CVA. 10/10/17. patient slowly improving. . 10/11/17. Previous CVA. And quadriceps tendon sprain. Renal insufficiency. Diabetes Clinical Quality Measures DVT/VTE Risk/Contraindication: Risk Factor Score Per Nursin RFS Level Per Nursing on Admit: 4+=Very High WILLIAN NAGEL DO Oct 11, 2017 08:17
--- NOTE | 2017-10-11 08:38 | PM & R (SOAP) Progress Note ---
Subjective Time Seen by Provider: 08:05 Subjective/Events-last exam Patient was seen in his room this AM Patient SBA for transfers Pain rt knee decreased Objective Exam Last Set of Vital Signs Vital Signs Date Time Temp Pulse Resp B/P (MAP) Pulse Ox O2 Delivery O2 Flow Rate FiO2 10/11/17 04:53 97.8 61 20 121/71 (88) 96 Room Air Capillary Refill : Less Than 3 Seconds I&O Intake and Output 10/10/17 23:59 Intake Total 1180 ml Output Total 2440 ml Balance -1260 ml Intake Oral 1180 ml Output Urine Total 2440 ml General: Alert, Oriented X3, Cooperative, No Acute Distress HEENT: Atraumatic, PERRLA, EOMI, Mucous Memb Moist/[place], Other (mild expressive aphasia) Neck: Supple, No JVD Lungs: Clear to Auscultation Heart: Regular Rate Abdomen: Normal Bowel Sounds, Soft, No Tenderness Extremities: No Edema Neuro: Other (Mild rt HP has antigravity strength RT knee in immobilizer) Results Lab Laboratory Tests 10/08/17 11:06: Glucometer 219H 10/08/17 16:04: Glucometer 333H 10/08/17 20:30: Glucometer 336H 10/09/17 05:23: Glucometer 92 10/09/17 11:17: Glucometer 219H 10/09/17 15:50: Glucometer 153H 10/09/17 20:49: Glucometer 277H 10/10/17 05:20: Glucometer 103 10/10/17 11:07: Glucometer 244H 10/10/17 16:09: Glucometer 182H 10/10/17 20:28: Glucometer 287H 10/11/17 05:01: Glucometer 89 Assessment/Plan Assessment Fall with Knee pain Quadriceps strain Prior RT TKR DR Dimas [facility] approx 2007 DJD Left 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
[2017-10-11] MEDS: SENNA W/DOCUSATE (SENOKOT S) TABLET PO SCH ×2 (08:58→20:37)
--- NOTE | 2017-10-11 09:00 | Physical Therapy Daily Note ---
PT Daily Note-Current Subjective Pt is laying in bed pre tx and agrees to PT. Pt. has no complaints of pain at this time. Pain Numeric Pain Scale: 0-No Pain Appearance Pt is sitting in [facility] post tx and has the tray, remote, and phone within reach. Mental Status Patient Orientation: Person, Place, Situation Transfers Functional [place] Measure 0=Not Assessed/NA 4=Minimal Assistance 1=Total Assistance 5=Supervision or Setup 2=Maximal Assistance 6=Modified [place] 3=Moderate Assistance 7=Complete IndependenceIRFPAI Quality Coding Scale 6 Independent with activity with or without an assistive device 5 Patient requires set up or clean up by helper. Patient completes activity by themselves 4 Supervision or touching assist (CGA). [place] provide cues , steadying assist 3 The helper provides less than half the effort to complete the activity 2 The helper provides more than half the effort to complete the activity 1 Dependent. The helper does all the effort to complete an activity 7 Patient refused to complete or attempt activity 9 The patient did not perform the activity before the current illness or injury 88 Not attempted due to Medical conditions or safety concerns Transfers (B, C, W/C) (FIM): 3 Scootin Rollin Supine to/from Sit: 3 Sit to/from Stand: 4 Bed to/from Chair: 3 Pt has more difficulty transferring to the R due to R knee injury compared to transferring to the L. Cues for hand placement and safety. Weight Bearing Right Lower Extremity: Right Weight Bearing/Tolerated Left Lower Extremity: Left Full Weight Bearing Gait Training Does the Patient Walk?: Yes Gait (FIM): 1 Distance: 15 feet x3 Gait Level of Assist: 4 Gait Persons Needed: 1 Gait Assistive Device: Walker Sonny Pt is not able to extend either knee during ambulation using a sonny walker. Antalgic, slow ambulation. Does not step through with left leg. Wheelchair Training Does the Pt Use a Wheelchair?: Yes Wheelchair (FIM): 5 Distance: 150 feet x2 Wheelchair Level of Assist: 5 Type of Wheelchair: Manual Exercises Seated Therapy Exercises: Hip flexion (10 x1 isatu) Supine stretching of the hip adductors, hip extensors, knee extensors, and ankle plantarflexors for 30 sec each. Treatments Pt performed bed mobility, functional activity, gait training, and LE stretching. Assessment Current Status: Good Progress Pt requires mod A when transferring to the R and SBA when transferring to the L. Pt tolerated walking 15 feet using sonny walker before needing a break. PT Short Term Goals Short Term Goals Time Frame: Oct 11, 2017 Gait (FIM): 2 Distance (FIM): 2=809-13 ft Gait Distance Comment: 100 feet with FWW and armrest for RUE Gait Level of Assist: 4 Gait Assistive Device: Walker Platform Wheelchair (FIM): 3 Wheelchair distance (FIM): 3=150 ft Wheelchair Distance: 150 feet Wheelchair Level of Assist: 5 Stairs (FIM): 1 # of Steps: 1 Stairs Level of Assist: 4 PT Payment Specialist Goals [facility] Goals PT Payment Specialist Goals Time Frame: Oct 25, 2017 Transfers (B,C,W/C) (FIM): 5 Sit to Lying (QC): 4 Lying-Sitting on Side/Bed(QC): 4 Sit to Stand (QC): 4 Rollin Roll Left to Right (QC): 4 Chair/[id number] Xfer(QC): 4 Car Transfer (QC): 4 Does the Patient Walk: Yes Gait (FIM): 5 Distance: 200 feet Walk 10 feet (QC): 4 Walk 10ft-Uneven Surface(QC): 4 Walk 50ft with 2 Turns (QC): 4 Walk 150 ft (QC): 4 Gait Level of Assist: 5 Gait Assistive Device: Walker Platform Does the Pt use WC or Scooter?: Yes Wheelchair (FIM): 6 Distance: 200 feet Wheelchair Level of Assist: 6 Wheel 50 feet with 2 turns (QC: 6 Stairs (FIM): 2 # of Steps: 4 1 Step (curb) (QC): 4 4 Steps (QC): 4 12 Steps (QC): 88 Stairs Level Of Assist: 5 Picking up an Object (QC): 88 PT Plan Problem List Problem List: Activity Tolerance, Functional Strength, Safety, Balance, Gait, Transfer, Bed Mobility, ROM Treatment/Plan Treatment Plan: Continue Plan of Care Treatment Plan: Bed Mobility, Concurrent Therapy, Education, Functional Activity Gregorio, Functional Strength, Group Therapy, Gait, Safety, Therapeutic Exercise, Transfers Treatment Duration: Oct 25, 2017 Frequency: At least 5 of 7 days/Wk (IRF) Estimated Hrs Per Day: 1.5 hours per day Patient and/or Family Agrees t: Yes Safety Risks/Education Patient Education: Gait Training, Transfer Techniques, Correct Positioning, W/ C Management, Safety Issues Teaching Recipient: Patient Teaching Methods: Demonstration, Discussion Response to Teaching: Verbalize Understanding, Return Demonstration, Reinforcement Needed Time/GCodes Time In: 800 Time Out: 900 Total Billed Treatment Time: 60 Total Billed Treatment 1 visit 25 min GT 15 min EX 20 min JACKIE MAHAJAN PT Oct 11, 2017 09:00
--- NOTE | 2017-10-11 10:23 | Speech Therapy Daily Note ---
Speech Daily Progress Note Subjective Date Seen by Provider: Oct 11, 2017 Time Seen by Provider: 08:55 The patient was seated in wheelchair upon entrance. The patient greeted the clinician and was agreeable to participation in the language treatment session. Objective Informal Word-Finding: The patient was asked to participate in conversation with the clinician to work on word-finding strategies through impromptu interactions. The patient demonstrates consistent pauses and delays, as well as , halts in conversation. With cues to use synonyms or gestures, the patients pauses became less frequent but remained. The patient does grow frustrated with word-finding errors, however, denied this observation. Per patient, "Before the stroke, I didn't have any difficulties, after the stroke sometimes I just can't. " Synonyms and Opposites: The patient displayed continued great difficulty with providing synonyms and opposites, demonstrating less than 60% accuracy with moderate clinician prompting. Assessment Assessment Current Status: Fair Progress Treatment Plan Continue Plan of Care Communication Comprehension: 5 Expression: 4 (A little difficult to understand at times) Social Cognition Social Interaction: 5 Problem Solvin Memory: 6 Speech Short Term Goals Short Term Goals Short Term Goals 1. The patient will recall and demonstrate three word-finding strategies with mild clinician verbal prompting. 2. The patient will display 80% accuracy with structured word-finding tasks with mild clinician verbal prompting. Time Frame-STG: Ten Days Speech Recreation Director Goals [facility] Goals 1. The patient will demonstrate improved expressive communication for increased function and safety with ADL's in the least restrictive setting. Time Frame: Two Weeks Comprehension: 5 Expression: 5 Social Interaction: 6 Problem Solvin Memory: 6 Speech-Plan Treatment Plan Speech Therapy Treatment Plan: Continue Plan of Care Continue skilled speech pathology to target functional expression. Treatment Duration: Oct 18, 2017 Frequency: Modified Program (IRF) (Four to five times per day.) Estimated Hrs Per Day: .5 hour per day Rehab Potential: Good Safety Risks/Education Teaching Recipient: Patient Teaching Methods: Discussion Response to Teaching: Verbalize Understanding, Reinforcement Needed Education Topics Provided: Word-Finding Strategies Time Speech Therapy Time In: 08:55 Speech Therapy Time Out: 09:25 Total Billed Time: 30 Billed Treatment Time JESSICA Jimenez ELIZABEJESSICA ALONSO Oct 11, 2017 10:23
--- NOTE | 2017-10-11 13:42 | Occupational Ther Daily Note ---
OT Current Status-Daily Note Subjective Pt seen in room, up in w/c, agreeable to OT. Pt reported, 'I am tired from therapy" and that he had walked with lazaro walker today Appearance Alert, cooperative Mental Status/Objective Functional [place] Measure 0=Not Assessed/NA 4=Minimal Assistance 1=Total Assistance 5=Supervision or Setup 2=Maximal Assistance 6=Modified [place] 3=Moderate Assistance 7=Complete [place] ADL-Treatment Pt wanted to shave and to change his shirt but not bathe or changed lower body clothing. He was able to propel w/c to bathroom sink, position chair, remember to lock brakes. He cleaned dentures by himself and also shaved with electric razor, trimming up moya. He reported that he has a w/c at home from when he had a stroke. pt pleased with progress Functional [place] Measure 0=Not Assessed/NA 4=Minimal Assistance 1=Total Assistance 5=Supervision or Setup 2=Maximal Assistance 6=Modified [place] 3=Moderate Assistance 7=Complete IndependenceIRFPAI Quality Coding Scale 6 Independent with activity with or without an assistive device 5 Patient requires set up or clean up by helper. Patient completes activity by themselves 4 Supervision or touching assist (CGA). [place] provide cues , steadying assist 3 The helper provides less than half the effort to complete the activity 2 The helper provides more than half the effort to complete the activity 1 Dependent. The helper does all the effort to complete an activity 7 Patient refused to complete or attempt activity 9 The patient did not perform the activity before the current illness or injury 88 Not attempted due to Medical conditions or safety concerns Other Treatment Pt propelled w/c to gym. Did 12 minutes L UE exercise (included R UE for about 3 minutes but had had difficulty staying on arm bike handle), arm bike set at 20W resistance. He worked at steady pace and did not take any breaks. He also did 15 reps L UE exercise with 2# weight, working on shoulder, elbow, forearm and wrist. To strengthen arm to help with walking and ADLs. Pt propelled himself back to his room and was left up in w/c, all needs met. Education OT Patient Education: Exercise program, Modified ADL techniques, Purpose of tx/ functional activities Teaching Recipient: Patient Teaching Methods: Demonstration, Discussion Response to Teaching: Verbalize Understanding, Return Demonstration OT Short Term Goals Short Term Goals Time Frame: Oct 13, 2017 Toileting(FIM): 3 Toilet/Commode Transfer(FIM): 3 Shower Transfer(FIM): 3 Additional Short Term Goals: 1-Demonstrate ADL Tasks, 2-Verbalize Understanding , 3-ImproveStrength/Gregorio 1=Demonstrate adherence to instructed precautions during ADL tasks. 2=Patient will verbalize/demonstrate understanding of assistive devices/ modifications for ADL. 3=Patient will improve strength/tolerance for activity to enable patient to perform ADL's. OT Senior Living Goals Dairy Feed Worker Goals Time Frame: Oct 25, 2017 Eating (FIM): 6 Eating (QC): 6 Groomin Oral Hygiene (QC): 6 Bathing(FIM): 6 Shower/Bathe Self (QC): 6 Upper Body Dressing(FIM): 6 Upper Body Dressing (QC): 6 Lower Body Dressing(FIM): 6 Lower Body Dressing (QC): 6 On/Off Footwear (QC): 6 Toileting(FIM): 6 Toileting Hygiene (QC): 6 Transfers (B,C,W/C) (FIM): 6 Toilet/Commode Transfer(FIM): 6 Toilet/Commode Transfer (QC): 6 Shower Transfer(FIM): 6 Comprehension(FIM): 5 Expression (FIM): 5 Social Interaction(FIM): 6 Problem Solving(FIM): 5 Memory(FIM): 6 Additional Goals: 1-Demonstrate ADL Tasks, 2-Verbalize Understanding, 3- ImproveStrength/Gregorio 1=Demonstrate adherence to instructed precautions during ADL tasks. 2=Patient will verbalize/demonstrate understanding of assistive devices/ modifications for ADL. 3=Patient will improve strength/tolerance for activity to enable patient to perform ADL's. OT Education/Plan Problem List/Assessment Pt would benefit from skilled OT to increase his independence in basic self care to allow him to safely return to his home to live with his and to decrease caregiver burden. Discharge Recommendations Plan/Recommendations: Continue POC Treatment Plan/Plan of Care Patient would benefit from OT for education, treatment and training to promote independence in ADL's, mobility, safety and/or upper extremity function for ADL' s. Plan of Care: ADL Retraining, Functional Mobility, Group Exercise/Act as Ind ( education, exercise, act tolerance, problem solving, funct mobility, communication, socialization), UE Funct Exercise/Act, UE Neuromus Re-Ed/Coord Treatment Duration: Oct 25, 2017 Frequency: At least 5 of 7 days/Wk (IRF) Estimated Hrs Per Day: 1.5 hours per day (1-25 to 1.5) Agreement: Yes Rehab Potential: Good Time/GCodes Start Time: 11:05 Stop Time: 11:50 Total Time Billed (hr/min): 45 Billed Treatment Time visit, 20 minutes ADL, 25 minutes exercise TERE DEL CASTILLO OT Oct 11, 2017 13:42
--- NOTE | 2017-10-11 15:24 | Therapy Group Daily Note ---
Therapy Daily Group Note Patient Education Topic Home Safety, Other List Below Exercises UE Exercise Other/Notes Pt maneuvered w/c to OT/PT group in ARU commons area. Group consisted of introductions (name, place, dislike of one uncommon item), socialization, seated UE exercises, ARU expectations, safety sign bingo with education and safe vs. unsafe education. Pt was able to appropriately introduce self to peers. Pt contributed to discussions throughout group that was relevant to topics discussed. Pt completed UE exercises though required to use self ROM technique for L UE. Education of ARU expectations and pt able to give one example of ARU routine. Pt able to complete matching, manipulating token during safety bingo activity. Education for safety throughout group then pt was asked to give examples of what unsafe situations are and what to do to make them safe. After therapy, maneuvered w/c back to room. All needs met in room. Start Time: 13:00 Stop Time: 14:15 Total Billed Treatment Time: 75 Total Billed Treatment 1,GRP ARANZA GEIGER DATA POWER CONSULTANT Oct 11, 2017 15:24
[2017-10-11 19:02] VITALS: BP 151/81
[2017-10-11] MEDS: TERAZOSIN 2 MG (HYTRIN) CAP PO SCH (20:36)
[2017-10-11] MEDS: FAMOTIDINE 20 MG (PEPCID) TABLET PO SCH (20:36)
[2017-10-11] MEDS: inSUlin DETERMIR 1 UNIT/0.01 ML (LEVEMIR) CHARGE PER UNIT SQ SCH (20:37)
[2017-10-12] MEDS: oxyCODONE/APAP 5/325MG (PERCOCET 5) TABLET PO PRN ×5 (02:49→20:28)
[2017-10-12 04:44] VITALS: BP 171/87
[2017-10-12] MEDS: inSUlin ASPART (NovoLOG) 1 UNIT/0.01 ML (CHARGE PER UNIT) SC SCH ×4 (06:15→20:29)
[2017-10-12] MEDS: IBUPROFEN 800 MG (MOTRIN) TAB PO SCH ×3 (06:15→17:26)
[2017-10-12] MEDS: ALLOPURINOL 100 MG (ZYLOPRIM) TAB PO SCH (07:44)
[2017-10-12] MEDS: CLOPIDOGREL 75 MG (PLAVIX) TABLET PO SCH (07:44)
[2017-10-12] MEDS: LOSARTAN 50 MG (COZAAR) TAB PO SCH (07:44)
[2017-10-12] MEDS: OXcarbazepine (TRILEPTAL) 300 MG TAB PO SCH ×2 (07:44→20:29)
[2017-10-12] MEDS: amLODIPine 10 MG (NORVASC) TAB PO SCH (07:44)
[2017-10-12] MEDS: SENNA W/DOCUSATE (SENOKOT S) TABLET PO SCH ×2 (07:45→20:28)
--- NOTE | 2017-10-12 08:17 | Progress Note (SOAP) ---
Subjective Time Seen by Provider: 08:15 Subjective/Events-last exam ommon quadriceps tendon sprain. Patient feeling better Patient voices no complaints Objective Exam Vital Signs Date Time Temp Pulse Resp B/P (MAP) Pulse Ox O2 Delivery O2 Flow Rate FiO2 10/12/17 07:50 Room Air 10/12/17 04:44 98.1 59 18 171/87 (115) 95 Room Air 10/11/17 20:30 Room Air 10/11/17 19:02 96.2 54 16 151/81 (104) 97 Room Air 10/11/17 08:42 Room Air I & O 10/12/17 07:00 Intake Total 1580 ml Output Total 1750 ml Balance -170 ml Capillary Refill : Less Than 3 Seconds General Appearance: No Apparent Distress, WD/WN Results Lab Laboratory Tests 10/11/17 10:57: Glucometer 258H 10/11/17 16:25: Glucometer 189H 10/11/17 20:16: Glucometer 259H 10/12/17 06:14: Glucometer 97 Assessment/Plan Assessment/Plan Assess & Plan/Chief Complaint common quadriceps tendon sprain. Previous CVA. Diabetes. Renal insufficiency. . 10/05/17 , Quadriceps tendon sprain. Previous CVA. Diabetes. Renal insufficiency. sugars are running high. increase Levemir. . 10/06/17 Quadriceps tendon sprain. Previous CVA. Diabetes under good control renal insufficiency. Patient doing better. . 10/09/17. , Quadriceps tendon sprain. Previous CVA. Diabetes. Renal insufficiency Patient getting around better and feeling better about himself. . , Quadriceps tendon sprain. *CVA. 10/10/17. patient slowly improving. . 10/11/17. Previous CVA. And quadriceps tendon sprain. Renal insufficiency. Diabetes. . 10/12/17. , Quadriceps tendon sprain. Previous CVA. Renal insufficiency. Diabetes. Patient a work in progress Clinical Quality Measures DVT/VTE Risk/Contraindication: Risk Factor Score Per Nursin RFS Level Per Nursing on Admit: 4+=Very High WILLIAN NAGEL DO Oct 12, 2017 08:17
--- NOTE | 2017-10-12 11:29 | Occupational Ther Daily Note ---
OT Current Status-Daily Note Subjective "I usually get out of bed on this side." (Indicates the right side of the bed.) Appearance Patient asleep when OT entered the room. Aroused easily and agreeable to shower this am. Mental Status/Objective Functional [place] Measure 0=Not Assessed/NA 4=Minimal Assistance 1=Total Assistance 5=Supervision or Setup 2=Maximal Assistance 6=Modified [place] 3=Moderate Assistance 7=Complete [place] ADL-Treatment Transferred bed to wheelchair with moderate assist. Reported difficulty in moving the right leg. Once in wheelchair, propelled self to the bathroom to do hygiene at the sink independently. All supplies within reach. Transferred from the wheelchair into the shower by use of grab bar with the left hand. Pulled self to stand and pivoted into shower to seat on shower bench. Bathed self all accept bottom which he requested assistance with. Came to stand independently while cleansed. Dried self in shower with assist to get feet. Did upper body dressing while seated on bath bench, clothing brought to him. Was independent in donning shirt. Transferred into the wheelchair for lower extremity dressing. Donned sweats independently over the feet. Insisted on donning the left leg first. Stood with aide of grab bar to pull up clothing, min assist to straighten out clothing. Self propelled self into bedroom to don socks with sock aide. Independent in the use of equipment. Did not want to put shoes on. He keeps clothing simple to help with independence in dressing. Functional [place] Measure 0=Not Assessed/NA 4=Minimal Assistance 1=Total Assistance 5=Supervision or Setup 2=Maximal Assistance 6=Modified [place] 3=Moderate Assistance 7=Complete IndependenceIRFPAI Quality Coding Scale 6 Independent with activity with or without an assistive device 5 Patient requires set up or clean up by helper. Patient completes activity by themselves 4 Supervision or touching assist (CGA). [place] provide cues , steadying assist 3 The helper provides less than half the effort to complete the activity 2 The helper provides more than half the effort to complete the activity 1 Dependent. The helper does all the effort to complete an activity 7 Patient refused to complete or attempt activity 9 The patient did not perform the activity before the current illness or injury 88 Not attempted due to Medical conditions or safety concerns OT Short Term Goals Short Term Goals Time Frame: Oct 13, 2017 Toileting(FIM): 3 Toilet/Commode Transfer(FIM): 3 Shower Transfer(FIM): 3 Additional Short Term Goals: 1-Demonstrate ADL Tasks, 2-Verbalize Understanding , 3-ImproveStrength/Gregorio 1=Demonstrate adherence to instructed precautions during ADL tasks. 2=Patient will verbalize/demonstrate understanding of assistive devices/ modifications for ADL. 3=Patient will improve strength/tolerance for activity to enable patient to perform ADL's. OT [employer] Aging Director Goals Long-Term Goals Time Frame: Oct 25, 2017 Eating (FIM): 6 Eating (QC): 6 Groomin Oral Hygiene (QC): 6 Bathing(FIM): 6 Shower/Bathe Self (QC): 6 Upper Body Dressing(FIM): 6 Upper Body Dressing (QC): 6 Lower Body Dressing(FIM): 6 Lower Body Dressing (QC): 6 On/Off Footwear (QC): 6 Toileting(FIM): 6 Toileting Hygiene (QC): 6 Transfers (B,C,W/C) (FIM): 6 Toilet/Commode Transfer(FIM): 6 Toilet/Commode Transfer (QC): 6 Shower Transfer(FIM): 6 Comprehension(FIM): 5 Expression (FIM): 5 Social Interaction(FIM): 6 Problem Solving(FIM): 5 Memory(FIM): 6 Additional Goals: 1-Demonstrate ADL Tasks, 2-Verbalize Understanding, 3- ImproveStrength/Gregorio 1=Demonstrate adherence to instructed precautions during ADL tasks. 2=Patient will verbalize/demonstrate understanding of assistive devices/ modifications for ADL. 3=Patient will improve strength/tolerance for activity to enable patient to perform ADL's. OT Education/Plan Problem List/Assessment Pt would benefit from skilled OT to increase his independence in basic self care to allow him to safely return to his home to live with his and to decrease caregiver burden. Discharge Recommendations Plan/Recommendations: Continue POC Treatment Plan/Plan of Care Patient would benefit from OT for education, treatment and training to promote independence in ADL's, mobility, safety and/or upper extremity function for ADL' s. Plan of Care: ADL Retraining, Functional Mobility, Group Exercise/Act as Ind ( education, exercise, act tolerance, problem solving, funct mobility, communication, socialization), UE Funct Exercise/Act, UE Neuromus Re-Ed/Coord Treatment Duration: Oct 25, 2017 Frequency: At least 5 of 7 days/Wk (IRF) Estimated Hrs Per Day: 1.5 hours per day (1-25 to 1.5) Agreement: Yes Rehab Potential: Good Time/GCodes Start Time: 07:55 Stop Time: 09:02 Total Time Billed (hr/min): 67 Billed Treatment Time Visit, ADL x 4 LALA DORSEY OT Oct 12, 2017 11:29
--- NOTE | 2017-10-12 11:35 | Physical Therapy Daily Note ---
PT Daily Note-Current Subjective Pt is sitting in [facility] pre tx and has no complaints of pain. Appearance Pt is sitting in [facility] post tx with the remote, phone, and tray within reach. Mental Status Patient Orientation: Normal For Age Transfers Functional [place] Measure 0=Not Assessed/NA 4=Minimal Assistance 1=Total Assistance 5=Supervision or Setup 2=Maximal Assistance 6=Modified [place] 3=Moderate Assistance 7=Complete IndependenceIRFPAI Quality Coding Scale 6 Independent with activity with or without an assistive device 5 Patient requires set up or clean up by helper. Patient completes activity by themselves 4 Supervision or touching assist (CGA). [place] provide cues , steadying assist 3 The helper provides less than half the effort to complete the activity 2 The helper provides more than half the effort to complete the activity 1 Dependent. The helper does all the effort to complete an activity 7 Patient refused to complete or attempt activity 9 The patient did not perform the activity before the current illness or injury 88 Not attempted due to Medical conditions or safety concerns Transfers (B, C, W/C) (FIM): 4 Scootin Sit to/from Stand: 4 Pt requires CGA for sit to stand transfer. Weight Bearing Right Lower Extremity: Right Weight Bearing/Tolerated Left Lower Extremity: Left Full Weight Bearing Gait Training Does the Patient Walk?: Yes Gait (FIM): 2 Distance: 50 feet Gait Persons Needed: 1 Pt ambulated 50 feet with the Light Gait Machine. Pt walks in machine wind swept to the left demonstrating that he is heavily favoring the LLE when ambulating. He will not put much weight through his right leg even with cues. Patient tends to lean backward in the sling and has a hard time pushing the litegait, trouble getting his center of gravity forward to ambulate. Ambulating in the litegait was pretty unsuccessful. Wheelchair Training Does the Pt Use a Wheelchair?: Yes Wheelchair (FIM): 5 Distance: 200 feet x2, 100 feet x1 Type of Wheelchair: Manual Exercises Seated Therapy Exercises: Long arc quads (5 min) NuStep Minutes: 15 NuStep Workload: 6 (5 for 9 min, 6 for 6 min) Treatments Pt performed functional activity, gait training, and LE exercises. Assessment Current Status: Good Progress Pt requires CGA during sit to stand transfers. Pt heavily favors the LLE during ambulation. Pt reports that the pain is preventing him from placing more weight on the LLE. PT Short Term Goals Short Term Goals Time Frame: Oct 11, 2017 Gait (FIM): 2 Distance (FIM): 1=167-31 ft Gait Distance Comment: 100 feet with FWW and armrest for RUE Gait Level of Assist: 4 Gait Assistive Device: Walker Platform Wheelchair (FIM): 3 Wheelchair distance (FIM): 3=150 ft Wheelchair Distance: 150 feet x2 Wheelchair Level of Assist: 5 Stairs (FIM): 1 # of Steps: 1 Stairs Level of Assist: 4 PT Heater Tender Goals Heater Tender Goals PT Heater Tender Goals Time Frame: Oct 25, 2017 Transfers (B,C,W/C) (FIM): 5 Sit to Lying (QC): 4 Lying-Sitting on Side/Bed(QC): 4 Sit to Stand (QC): 4 Rollin Roll Left to Right (QC): 4 Chair/Elc-ty-Etbvm Xfer(QC): 4 Car Transfer (QC): 4 Does the Patient Walk: Yes Gait (FIM): 5 Distance: 200 feet Walk 10 feet (QC): 4 Walk 10ft-Uneven Surface(QC): 4 Walk 50ft with 2 Turns (QC): 4 Walk 150 ft (QC): 4 Gait Level of Assist: 5 Gait Assistive Device: Walker Platform Does the Pt use WC or Scooter?: Yes Wheelchair (FIM): 6 Distance: 200 feet Wheelchair Level of Assist: 6 Wheel 50 feet with 2 turns (QC: 6 Stairs (FIM): 2 # of Steps: 4 1 Step (curb) (QC): 4 4 Steps (QC): 4 12 Steps (QC): 88 Stairs Level Of Assist: 5 Picking up an Object (QC): 88 PT Plan Problem List Problem List: Activity Tolerance, Functional Strength, Safety, Balance, Gait, Transfer, Bed Mobility, ROM Treatment/Plan Treatment Plan: Continue Plan of Care Treatment Plan: Bed Mobility, Concurrent Therapy, Education, Functional Activity Gregorio, Functional Strength, Group Therapy, Gait, Safety, Therapeutic Exercise, Transfers Treatment Duration: Oct 25, 2017 Frequency: At least 5 of 7 days/Wk (IRF) Estimated Hrs Per Day: 1.5 hours per day Patient and/or Family Agrees t: Yes Safety Risks/Education Patient Education: Gait Training, Transfer Techniques, Correct Positioning, W/ C Management, Disease Process, Safety Issues Teaching Recipient: Patient Teaching Methods: Demonstration, Discussion Response to Teaching: Verbalize Understanding, Return Demonstration, Reinforcement Needed Time/GCodes Time In: 1100 Time Out: 1200 Total Billed Treatment Time: 60 Total Billed Treatment 1 visit 20 min EX 10 min WCH 15 min GT 15 min FA JACKIE GRIDER PT Oct 12, 2017 11:35
--- NOTE | 2017-10-12 11:48 | PM & R (SOAP) Progress Note ---
Subjective Time Seen by Provider: 10:50 Subjective/Events-last exam Patient was seen in his room this AM Patient min assist for transfers Objective Exam Last Set of Vital Signs Vital Signs Date Time Temp Pulse Resp B/P (MAP) Pulse Ox O2 Delivery O2 Flow Rate FiO2 10/12/17 07:50 Room Air 10/12/17 04:44 98.1 59 18 171/87 (115) 95 Capillary Refill : Less Than 3 Seconds I&O Intake and Output 10/12/17 00:00 Intake Total 1430 ml Output Total 1500 ml Balance -70 ml Intake Oral 1430 ml Output Urine Total 1500 ml General: Alert, Oriented X3, Cooperative, No Acute Distress HEENT: Atraumatic, PERRLA, EOMI, Mucous Memb Moist/[place], Other (mild expressive aphasia) Neck: Supple, No JVD Lungs: Clear to Auscultation Heart: Regular Rate Abdomen: Normal Bowel Sounds, Soft, No Tenderness Extremities: No Edema Neuro: Other (Mild rt HP has antigravity strength RT knee in immobilizer) Results Lab Laboratory Tests 10/09/17 15:50: Glucometer 153H 10/09/17 20:49: Glucometer 277H 10/10/17 05:20: Glucometer 103 10/10/17 11:07: Glucometer 244H 10/10/17 16:09: Glucometer 182H 10/10/17 20:28: Glucometer 287H 10/11/17 05:01: Glucometer 89 10/11/17 10:57: Glucometer 258H 10/11/17 16:25: Glucometer 189H 10/11/17 20:16: Glucometer 259H 10/12/17 06:14: Glucometer 97 10/12/17 11:08: Glucometer 178H Assessment/Plan Assessment Fall with Knee pain Quadriceps strain Prior RT TKR DR Dimas [facility] approx 2007 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
--- NOTE | 2017-10-12 15:00 | Physical Therapy Daily Note ---
PT Daily Note-Current Subjective Pt is sitting in [facility] pre tx and agrees to PT. At this time, pt has no complaints of pain. Appearance Pt is sitting in [facility] post tx with phone, remote, and tray within reach. Mental Status Patient Orientation: Normal For Age Transfers Functional [place] Measure 0=Not Assessed/NA 4=Minimal Assistance 1=Total Assistance 5=Supervision or Setup 2=Maximal Assistance 6=Modified [place] 3=Moderate Assistance 7=Complete IndependenceIRFPAI Quality Coding Scale 6 Independent with activity with or without an assistive device 5 Patient requires set up or clean up by helper. Patient completes activity by themselves 4 Supervision or touching assist (CGA). [place] provide cues , steadying assist 3 The helper provides less than half the effort to complete the activity 2 The helper provides more than half the effort to complete the activity 1 Dependent. The helper does all the effort to complete an activity 7 Patient refused to complete or attempt activity 9 The patient did not perform the activity before the current illness or injury 88 Not attempted due to Medical conditions or safety concerns Transfers (B, C, W/C) (FIM): 4 Scootin Sit to/from Stand: 4 CGA required for sit to stand Weight Bearing Right Lower Extremity: Right Weight Bearing/Tolerated Left Lower Extremity: Left Full Weight Bearing Gait Training Does the Patient Walk?: Yes Gait (FIM): 2 Distance: 100 feet Gait Level of Assist: 4 Gait Assistive Device: Walker Platform Knee brace worn during ambulation with platform walker. Pt reports that the brace is working for him. With knee brace, pt continues to avoid FWB on the RLE. Wheelchair Training Does the Pt Use a Wheelchair?: Yes Wheelchair (FIM): 1 Distance: 25 Wheelchair Level of Assist: 5 Type of Wheelchair: Manual Exercises Seated Therapy Exercises: Long arc quads (10 x2) Standing: Weight shifts (Lateral 10 x1) Treatments Pt performed functional activity and gait training. Assessment Current Status: Fair Progress With addition of knee brace on the RLE, pt reports that it is helping. He continues to avoid FWB on the RLE when the knee brace is on. Pt demonstrates poor concentric and eccentric control of the R knee extensors. With manual assistance at the distal thigh, pt was able to perform reciprocal gait for 10 feet. PT Short Term Goals Short Term Goals Time Frame: Oct 11, 2017 Gait (FIM): 2 Distance (FIM): 1=134-17 ft Gait Distance Comment: 100 feet with FWW and armrest for RUE Gait Level of Assist: 4 Gait Assistive Device: Walker Platform Wheelchair (FIM): 3 Wheelchair distance (FIM): 3=150 ft Wheelchair Distance: 200 feet x2, 100 feet x1 Wheelchair Level of Assist: 5 Stairs (FIM): 1 # of Steps: 1 Stairs Level of Assist: 4 PT Supervisor [employer] Goals Skilled Nursing Goals PT Supervisor [employer] Goals Time Frame: Oct 25, 2017 Transfers (B,C,W/C) (FIM): 5 Sit to Lying (QC): 4 Lying-Sitting on Side/Bed(QC): 4 Sit to Stand (QC): 4 Rollin Roll Left to Right (QC): 4 Chair/Lhg-wj-Ayzgi Xfer(QC): 4 Car Transfer (QC): 4 Does the Patient Walk: Yes Gait (FIM): 5 Distance: 200 feet Walk 10 feet (QC): 4 Walk 10ft-Uneven Surface(QC): 4 Walk 50ft with 2 Turns (QC): 4 Walk 150 ft (QC): 4 Gait Level of Assist: 5 Gait Assistive Device: Walker Platform Does the Pt use WC or Scooter?: Yes Wheelchair (FIM): 6 Distance: 200 feet Wheelchair Level of Assist: 6 Wheel 50 feet with 2 turns (QC: 6 Stairs (FIM): 2 # of Steps: 4 1 Step (curb) (QC): 4 4 Steps (QC): 4 12 Steps (QC): 88 Stairs Level Of Assist: 5 Picking up an Object (QC): 88 PT Plan Problem List Problem List: Activity Tolerance, Functional Strength, Safety, Balance, Gait, Transfer, Bed Mobility, ROM Treatment/Plan Treatment Plan: Continue Plan of Care Treatment Plan: Bed Mobility, Concurrent Therapy, Education, Functional Activity Gregorio, Functional Strength, Group Therapy, Gait, Safety, Therapeutic Exercise, Transfers Treatment Duration: Oct 25, 2017 Frequency: At least 5 of 7 days/Wk (IRF) Estimated Hrs Per Day: 1.5 hours per day Patient and/or Family Agrees t: Yes Safety Risks/Education Patient Education: Gait Training, Transfer Techniques, Correct Positioning, W/ C Management, Safety Issues Teaching Recipient: Patient Teaching Methods: Demonstration, Discussion Response to Teaching: Verbalize Understanding, Return Demonstration, Reinforcement Needed Time/GCodes Time In: 1330 Time Out: 1400 Total Billed Treatment Time: 30 Total Billed Treatment 1 visit 10 min FA 20 min GT RU ADAME PT Oct 12, 2017 15:00
--- NOTE | 2017-10-12 16:50 | Occupational Ther Daily Note ---
OT Current Status-Daily Note Subjective Pt seen in room, up in w/c, agreeable to OT. No pain mentioned Appearance Alert, cooperative Mental Status/Objective Functional [place] Measure 0=Not Assessed/NA 4=Minimal Assistance 1=Total Assistance 5=Supervision or Setup 2=Maximal Assistance 6=Modified [place] 3=Moderate Assistance 7=Complete [place] ADL-Treatment Functional [place] Measure 0=Not Assessed/NA 4=Minimal Assistance 1=Total Assistance 5=Supervision or Setup 2=Maximal Assistance 6=Modified [place] 3=Moderate Assistance 7=Complete IndependenceIRFPAI Quality Coding Scale 6 Independent with activity with or without an assistive device 5 Patient requires set up or clean up by helper. Patient completes activity by themselves 4 Supervision or touching assist (CGA). [place] provide cues , steadying assist 3 The helper provides less than half the effort to complete the activity 2 The helper provides more than half the effort to complete the activity 1 Dependent. The helper does all the effort to complete an activity 7 Patient refused to complete or attempt activity 9 The patient did not perform the activity before the current illness or injury 88 Not attempted due to Medical conditions or safety concerns Other Treatment Pt propelled w/c to gym and positioned chair at table. He did 14 minutes bilat UE exercise on arm bike set at 25W resistance (increased time and increased resistance, with a couple brief recovery periods. To strengthen arms to help with transfers and ADLs. Pt propelled himself back to his room and was left up in w/c, all needs met. He indicated that he would like to practice toileting tomorrow, with walking into bathroom. Education OT Patient Education: Exercise program, Purpose of tx/functional activities Teaching Recipient: Patient Teaching Methods: Discussion Response to Teaching: Return Demonstration OT Short Term Goals Short Term Goals Time Frame: Oct 13, 2017 Toileting(FIM): 3 Toilet/Commode Transfer(FIM): 3 Shower Transfer(FIM): 3 Additional Short Term Goals: 1-Demonstrate ADL Tasks, 2-Verbalize Understanding , 3-ImproveStrength/Gregorio 1=Demonstrate adherence to instructed precautions during ADL tasks. 2=Patient will verbalize/demonstrate understanding of assistive devices/ modifications for ADL. 3=Patient will improve strength/tolerance for activity to enable patient to perform ADL's. OT Graphite Grinder Goals Graphite Grinder Goals Time Frame: Oct 25, 2017 Eating (FIM): 6 Eating (QC): 6 Groomin Oral Hygiene (QC): 6 Bathing(FIM): 6 Shower/Bathe Self (QC): 6 Upper Body Dressing(FIM): 6 Upper Body Dressing (QC): 6 Lower Body Dressing(FIM): 6 Lower Body Dressing (QC): 6 On/Off Footwear (QC): 6 Toileting(FIM): 6 Toileting Hygiene (QC): 6 Transfers (B,C,W/C) (FIM): 6 Toilet/Commode Transfer(FIM): 6 Toilet/Commode Transfer (QC): 6 Shower Transfer(FIM): 6 Comprehension(FIM): 5 Expression (FIM): 5 Social Interaction(FIM): 6 Problem Solving(FIM): 5 Memory(FIM): 6 Additional Goals: 1-Demonstrate ADL Tasks, 2-Verbalize Understanding, 3- ImproveStrength/Gregorio 1=Demonstrate adherence to instructed precautions during ADL tasks. 2=Patient will verbalize/demonstrate understanding of assistive devices/ modifications for ADL. 3=Patient will improve strength/tolerance for activity to enable patient to perform ADL's. OT Education/Plan Problem List/Assessment Pt would benefit from skilled OT to increase his independence in basic self care to allow him to safely return to his home to live with his and to decrease caregiver burden. Discharge Recommendations Plan/Recommendations: Continue POC Treatment Plan/Plan of Care Patient would benefit from OT for education, treatment and training to promote independence in ADL's, mobility, safety and/or upper extremity function for ADL' s. Plan of Care: ADL Retraining, Functional Mobility, Group Exercise/Act as Ind ( education, exercise, act tolerance, problem solving, funct mobility, communication, socialization), UE Funct Exercise/Act, UE Neuromus Re-Ed/Coord Treatment Duration: Oct 25, 2017 Frequency: At least 5 of 7 days/Wk (IRF) Estimated Hrs Per Day: 1.5 hours per day (1-25 to 1.5) Agreement: Yes Rehab Potential: Good Time/GCodes Start Time: 14:00 Stop Time: 14:30 Total Time Billed (hr/min): 30 Billed Treatment Time visit, 30 minutes exercise TERE DEL CASTILLO OT Oct 12, 2017 16:50
[2017-10-12 18:34] VITALS: BP 119/75
[2017-10-12] MEDS: FAMOTIDINE 20 MG (PEPCID) TABLET PO SCH (20:28)
[2017-10-12] MEDS: TERAZOSIN 2 MG (HYTRIN) CAP PO SCH (20:29)
[2017-10-12] MEDS: inSUlin DETERMIR 1 UNIT/0.01 ML (LEVEMIR) CHARGE PER UNIT SQ SCH (20:29)
[2017-10-13] MEDS: inSUlin ASPART (NovoLOG) 1 UNIT/0.01 ML (CHARGE PER UNIT) SC SCH ×4 (05:20→21:14)
[2017-10-13 06:11] VITALS: BP 138/81
[2017-10-13] MEDS: IBUPROFEN 800 MG (MOTRIN) TAB PO SCH ×3 (06:15→17:24)
[2017-10-13] MEDS: oxyCODONE/APAP 5/325MG (PERCOCET 5) TABLET PO PRN ×3 (07:25→16:05)
[2017-10-13] MEDS: OXcarbazepine (TRILEPTAL) 300 MG TAB PO SCH ×2 (08:12→21:13)
[2017-10-13] MEDS: amLODIPine 10 MG (NORVASC) TAB PO SCH (08:12)
[2017-10-13] MEDS: ALLOPURINOL 100 MG (ZYLOPRIM) TAB PO SCH (08:12)
[2017-10-13] MEDS: SENNA W/DOCUSATE (SENOKOT S) TABLET PO SCH ×2 (08:12→21:13)
[2017-10-13] MEDS: CLOPIDOGREL 75 MG (PLAVIX) TABLET PO SCH (08:12)
[2017-10-13] MEDS: LOSARTAN 50 MG (COZAAR) TAB PO SCH (08:12)
--- NOTE | 2017-10-13 08:14 | Progress Note (SOAP) ---
Subjective Time Seen by Provider: 08:12 Subjective/Events-last exam patient positive. Patient working at his problems.. Trouble extending the leg Objective Exam Vital Signs Date Time Temp Pulse Resp B/P (MAP) Pulse Ox O2 Delivery O2 Flow Rate FiO2 10/13/17 07:38 Room Air 10/13/17 06:11 98.4 71 19 138/81 (100) 97 Room Air 10/12/17 20:00 Room Air 10/12/17 18:34 98.2 65 16 119/75 (90) 95 Room Air I & O 10/13/17 07:00 Intake Total 1200 ml Output Total 1250 ml Balance -50 ml Capillary Refill : Less Than 3 Seconds General Appearance: No Apparent Distress, WD/WN Results Lab Laboratory Tests 10/12/17 11:08: Glucometer 178H 10/12/17 16:22: Glucometer 227H 10/12/17 20:21: Glucometer 219H 10/13/17 05:17: Glucometer 88 Assessment/Plan Assessment/Plan Assess & Plan/Chief Complaint common quadriceps tendon sprain. Previous CVA. Diabetes. Renal insufficiency. . 10/05/17 , Quadriceps tendon sprain. Previous CVA. Diabetes. Renal insufficiency. sugars are running high. increase Levemir. . 10/06/17 Quadriceps tendon sprain. Previous CVA. Diabetes under good control renal insufficiency. Patient doing better. . 10/09/17. , Quadriceps tendon sprain. Previous CVA. Diabetes. Renal insufficiency Patient getting around better and feeling better about himself. . , Quadriceps tendon sprain. *CVA. 10/10/17. patient slowly improving. . 10/11/17. Previous CVA. And quadriceps tendon sprain. Renal insufficiency. Diabetes. . 10/12/17. , Quadriceps tendon sprain. Previous CVA. Renal insufficiency. Diabetes. Patient a work in progress. . 10/13/17. Common quadriceps tendon strain. Previous CVA. Diabetes. Renal insufficiency patient working hard to improve himself Clinical Quality Measures DVT/VTE Risk/Contraindication: Risk Factor Score Per Nursin RFS Level Per Nursing on Admit: 4+=Very High WILLIAN NAGEL DO Oct 13, 2017 08:14
--- NOTE | 2017-10-13 08:54 | PM & R (SOAP) Progress Note ---
Subjective Time Seen by Provider: 08:05 Subjective/Events-last exam Patient was seen in his room this AM Patient Min assist for transfers Accucheks noted Objective Exam Last Set of Vital Signs Vital Signs Date Time Temp Pulse Resp B/P (MAP) Pulse Ox O2 Delivery O2 Flow Rate FiO2 10/13/17 07:38 Room Air 10/13/17 06:11 98.4 71 19 138/81 (100) 97 Capillary Refill : Less Than 3 Seconds I&O Intake and Output 10/13/17 00:00 Intake Total 1260 ml Output Total 1800 ml Balance -540 ml Intake Oral 1260 ml Output Urine Total 1800 ml General: Alert, Oriented X3, Cooperative, No Acute Distress HEENT: Atraumatic, PERRLA, EOMI, Mucous Memb Moist/[place], Other (mild expressive aphasia) Neck: Supple, No JVD Lungs: Clear to Auscultation Heart: Regular Rate Abdomen: Normal Bowel Sounds, Soft, No Tenderness Extremities: No Edema Neuro: Other (Mild rt HP has antigravity strength RT knee in immobilizer) Results Lab Laboratory Tests 10/10/17 11:07: Glucometer 244H 10/10/17 16:09: Glucometer 182H 10/10/17 20:28: Glucometer 287H 10/11/17 05:01: Glucometer 89 10/11/17 10:57: Glucometer 258H 10/11/17 16:25: Glucometer 189H 10/11/17 20:16: Glucometer 259H 10/12/17 06:14: Glucometer 97 10/12/17 11:08: Glucometer 178H 10/12/17 16:22: Glucometer 227H 10/12/17 20:21: Glucometer 219H 10/13/17 05:17: Glucometer 88 Assessment/Plan Assessment Fall with Knee pain Quadriceps strain Prior RT TKR DR Dimas [facility] approx 2007 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
--- NOTE | 2017-10-13 09:02 | Physical Therapy Daily Note ---
PT Daily Note-Current Subjective Pt is laying in bed pre tx and c/o pain in the R knee. Pain Numeric Pain Scale: 4 Location: Right Location Body Site: Knee Comment: Before pain medication, pain was at a 7/10, and after pain medication, 4/10 Appearance Pt is sitting in chair post tx with phone and remote within reach and all needs met. Mental Status Patient Orientation: Normal For Age Transfers Functional [place] Measure 0=Not Assessed/NA 4=Minimal Assistance 1=Total Assistance 5=Supervision or Setup 2=Maximal Assistance 6=Modified [place] 3=Moderate Assistance 7=Complete IndependenceIRFPAI Quality Coding Scale 6 Independent with activity with or without an assistive device 5 Patient requires set up or clean up by helper. Patient completes activity by themselves 4 Supervision or touching assist (CGA). [place] provide cues , steadying assist 3 The helper provides less than half the effort to complete the activity 2 The helper provides more than half the effort to complete the activity 1 Dependent. The helper does all the effort to complete an activity 7 Patient refused to complete or attempt activity 9 The patient did not perform the activity before the current illness or injury 88 Not attempted due to Medical conditions or safety concerns Transfers (B, C, W/C) (FIM): 4 Scootin Rollin Supine to/from Sit: 4 Sit to/from Stand: 4 Bed to/from Chair: 4 Pt requires CGA for transfers. Weight Bearing Right Lower Extremity: Right Weight Bearing/Tolerated Left Lower Extremity: Left Full Weight Bearing Gait Training Does the Patient Walk?: Yes Gait (FIM): 1 Distance: 15 feet x3 Gait Level of Assist: 4 Gait Persons Needed: 1 Gait Assistive Device: Walker Sonny Pt cannot bear much weight on the right leg even with cues. Wheelchair Training Does the Pt Use a Wheelchair?: Yes Wheelchair (FIM): 5 Distance: 200 feet x2 Wheelchair Level of Assist: 5 Type of Wheelchair: Manual Exercises NuStep Minutes: 10 (9 min of pedaling1 min of squats) NuStep Workload: 8 Treatments Pt performed bed mobility, gait training, and LE exercises. Assessment Current Status: Fair Progress With use of FWW, then sonny walker, pt continues to avoid WB on the RLE. Pt is able to tolerate 9 minutes of the NuStep at a 8 workload and 1 minute of squats on the NuStep at 3 workload. Pt is making fair progress towards goal. PT Short Term Goals Short Term Goals Time Frame: Oct 11, 2017 Gait (FIM): 2 Distance (FIM): 6=257-86 ft Gait Distance Comment: 100 feet with FWW and armrest for RUE Gait Level of Assist: 4 Gait Assistive Device: Walker Platform Wheelchair (FIM): 3 Wheelchair distance (FIM): 3=150 ft Wheelchair Distance: 25 Wheelchair Level of Assist: 5 Stairs (FIM): 1 # of Steps: 1 Stairs Level of Assist: 4 PT Retirement Goals Retirement Goals PT Production Potter Goals Time Frame: Oct 25, 2017 Transfers (B,C,W/C) (FIM): 5 Sit to Lying (QC): 4 Lying-Sitting on Side/Bed(QC): 4 Sit to Stand (QC): 4 Rollin Roll Left to Right (QC): 4 Chair/Uqi-vc-Yghxw Xfer(QC): 4 Car Transfer (QC): 4 Does the Patient Walk: Yes Gait (FIM): 5 Distance: 200 feet Walk 10 feet (QC): 4 Walk 10ft-Uneven Surface(QC): 4 Walk 50ft with 2 Turns (QC): 4 Walk 150 ft (QC): 4 Gait Level of Assist: 5 Gait Assistive Device: Walker Platform Does the Pt use WC or Scooter?: Yes Wheelchair (FIM): 6 Distance: 200 feet Wheelchair Level of Assist: 6 Wheel 50 feet with 2 turns (QC: 6 Stairs (FIM): 2 # of Steps: 4 1 Step (curb) (QC): 4 4 Steps (QC): 4 12 Steps (QC): 88 Stairs Level Of Assist: 5 Picking up an Object (QC): 88 PT Plan Problem List Problem List: Activity Tolerance, Functional Strength, Safety, Balance, Gait, Transfer, Bed Mobility, ROM Treatment/Plan Treatment Plan: Continue Plan of Care Treatment Plan: Bed Mobility, Concurrent Therapy, Education, Functional Activity Gregorio, Functional Strength, Group Therapy, Gait, Safety, Therapeutic Exercise, Transfers Treatment Duration: Oct 25, 2017 Frequency: At least 5 of 7 days/Wk (IRF) Estimated Hrs Per Day: 1.5 hours per day Patient and/or Family Agrees t: Yes Safety Risks/Education Patient Education: Gait Training, Transfer Techniques, Correct Positioning, W/ C Management, Safety Issues Teaching Recipient: Patient, Significant Other Teaching Methods: Demonstration, Discussion Response to Teaching: Verbalize Understanding, Return Demonstration, Reinforcement Needed Time/GCodes Time In: 800 Time Out: 900 Total Billed Treatment Time: 60 Total Billed Treatment 1 visit 30 min GT 10 min EX 20 min JACKIE MAHAJAN PT Oct 13, 2017 09:02
--- NOTE | 2017-10-13 12:07 | Occupational Ther Daily Note ---
OT Current Status-Daily Note Subjective "I am already dressed, got dressed for PT this morning, but I need to clean up. " Appearance Patient seated at bedside, visiting with his who is here today to observe therapy. Mental Status/Objective Patient Orientation: Person, Place, Time, Situation Functional [place] Measure 0=Not Assessed/NA 4=Minimal Assistance 1=Total Assistance 5=Supervision or Setup 2=Maximal Assistance 6=Modified [place] 3=Moderate Assistance 7=Complete [place] ADL-Treatment Patient agreeable to use wheelchair to do am care in the bathroom. Transferred from recliner into wheelchair with minimal assist, moving today towards the left side. He also has a knee brace on today. Self propelled wheelchair using feet and LUE into the bathroom and to the sink to do hygiene, all supplies in reach. Completed upper body sponge bath with set up of the sponges, required mod assist to stand to have bottom cleansed as he can not hold on with the left hand and cleanse self. Seated self in wheelchair to do sita area independently. Had difficulty locating the arm holes for the shirt, required min assist to locate the right arm hole but could then don shirt independently. Donned sweat pants with mod assist, again having difficulty locating the correct leg. He tells me he does his dressing at home by his bed which is high and he can do tasks easier. agreed reporting he was independent in all ADL at home prior to this knee issue. Donned the left shoe independently required assist of OT for the right shoe. Attempted to use shoe horn but the back of the shoe had collapsed. Reported he uses different shoes at home that he can get on and off much easier. Propelled self back to bed room area. Agreed to propel self to gym for 5" of UBE before propelling self back to the room. Transferred back to recliner, moving with the left side first with min assist. Positioned wheelchair independently to do transfer. Functional [place] Measure 0=Not Assessed/NA 4=Minimal Assistance 1=Total Assistance 5=Supervision or Setup 2=Maximal Assistance 6=Modified [place] 3=Moderate Assistance 7=Complete IndependenceIRFPAI Quality Coding Scale 6 Independent with activity with or without an assistive device 5 Patient requires set up or clean up by helper. Patient completes activity by themselves 4 Supervision or touching assist (CGA). [place] provide cues , steadying assist 3 The helper provides less than half the effort to complete the activity 2 The helper provides more than half the effort to complete the activity 1 Dependent. The helper does all the effort to complete an activity 7 Patient refused to complete or attempt activity 9 The patient did not perform the activity before the current illness or injury 88 Not attempted due to Medical conditions or safety concerns OT Short Term Goals Short Term Goals Time Frame: Oct 13, 2017 Toileting(FIM): 3 Toilet/Commode Transfer(FIM): 3 Shower Transfer(FIM): 3 Additional Short Term Goals: 1-Demonstrate ADL Tasks, 2-Verbalize Understanding , 3-ImproveStrength/Gregorio 1=Demonstrate adherence to instructed precautions during ADL tasks. 2=Patient will verbalize/demonstrate understanding of assistive devices/ modifications for ADL. 3=Patient will improve strength/tolerance for activity to enable patient to perform ADL's. OT Security Guard Dispatcher Goals Security Guard Dispatcher Goals Time Frame: Oct 25, 2017 Eating (FIM): 6 Eating (QC): 6 Groomin Oral Hygiene (QC): 6 Bathing(FIM): 6 Shower/Bathe Self (QC): 6 Upper Body Dressing(FIM): 6 Upper Body Dressing (QC): 6 Lower Body Dressing(FIM): 6 Lower Body Dressing (QC): 6 On/Off Footwear (QC): 6 Toileting(FIM): 6 Toileting Hygiene (QC): 6 Transfers (B,C,W/C) (FIM): 6 Toilet/Commode Transfer(FIM): 6 Toilet/Commode Transfer (QC): 6 Shower Transfer(FIM): 6 Comprehension(FIM): 5 Expression (FIM): 5 Social Interaction(FIM): 6 Problem Solving(FIM): 5 Memory(FIM): 6 Additional Goals: 1-Demonstrate ADL Tasks, 2-Verbalize Understanding, 3- ImproveStrength/Gregorio 1=Demonstrate adherence to instructed precautions during ADL tasks. 2=Patient will verbalize/demonstrate understanding of assistive devices/ modifications for ADL. 3=Patient will improve strength/tolerance for activity to enable patient to perform ADL's. OT Education/Plan Problem List/Assessment Pt would benefit from skilled OT to increase his independence in basic self care to allow him to safely return to his home to live with his and to decrease caregiver burden. Discharge Recommendations Plan/Recommendations: Follow-up Planned Treatment Plan/Plan of Care Patient would benefit from OT for education, treatment and training to promote independence in ADL's, mobility, safety and/or upper extremity function for ADL' s. Plan of Care: ADL Retraining, Functional Mobility, Group Exercise/Act as Ind ( education, exercise, act tolerance, problem solving, funct mobility, communication, socialization), UE Funct Exercise/Act, UE Neuromus Re-Ed/Coord Treatment Duration: Oct 25, 2017 Frequency: At least 5 of 7 days/Wk (IRF) Estimated Hrs Per Day: 1.5 hours per day (1-25 to 1.5) Agreement: Yes Rehab Potential: Good Time/GCodes Start Time: 09:02 Stop Time: 10:04 Total Time Billed (hr/min): 62 Billed Treatment Time Visit, ADL x 4 LALA DORSEY OT Oct 13, 2017 12:07
--- NOTE | 2017-10-13 14:37 | Therapy Group Daily Note ---
Therapy Daily Group Note Exercises Fine Motor, UE Exercise Other/Notes Pt maneuvered w/c to [facility] for OT/PT group. Group consisted of introductions (name, place born, best prank played), socialization, seated UE exercises, dynamic sitting balance, problem solving, peer interaction and fine motor skills. Pt was able to introduce self appropriately and relay a story about a prank he had played on his brother. Pt contributed to group conversations and demonstrated active listening skills to peers. Pt was able to complete dynamic sitting and UE exercises during activities with L UE, difficulty with AROM of R UE. Pt demonstrated good problem solving skills for strategic planning throughout activity. Good fine motor skills. After group, pt maneuvered w/c back to room then was assisted with transfer back to bed. All needs met in room. Start Time: 13:00 Stop Time: 14:10 Total Billed Treatment Time: 70 Total Billed Treatment 1-GRP RU BURGESS Oct 13, 2017 14:37
[2017-10-13 17:55] VITALS: BP 140/83
[2017-10-13] MEDS: FAMOTIDINE 20 MG (PEPCID) TABLET PO SCH (21:13)
[2017-10-13] MEDS: inSUlin DETERMIR 1 UNIT/0.01 ML (LEVEMIR) CHARGE PER UNIT SQ SCH (21:14)
[2017-10-13] MEDS: TERAZOSIN 2 MG (HYTRIN) CAP PO SCH (21:14)
[2017-10-14] MEDS: oxyCODONE/APAP 5/325MG (PERCOCET 5) TABLET PO PRN ×3 (01:38→21:12)
[2017-10-14 05:31] VITALS: BP 125/67
[2017-10-14] MEDS: inSUlin ASPART (NovoLOG) 1 UNIT/0.01 ML (CHARGE PER UNIT) SC SCH ×4 (06:08→21:08)
[2017-10-14] MEDS: IBUPROFEN 800 MG (MOTRIN) TAB PO SCH ×3 (06:08→16:56)
--- NOTE | 2017-10-14 08:36 | Physical Therapy Daily Note ---
PT Daily Note-Current Subjective Patient in bed pre tx, agrees to PT, no complaints of pain. Appearance Patient in recliner post tx with nurse call, phone, tray, all needs met. Mental Status Patient Orientation: Normal For Age Transfers Functional [place] Measure 0=Not Assessed/NA 4=Minimal Assistance 1=Total Assistance 5=Supervision or Setup 2=Maximal Assistance 6=Modified [place] 3=Moderate Assistance 7=Complete IndependenceIRFPAI Quality Coding Scale 6 Independent with activity with or without an assistive device 5 Patient requires set up or clean up by helper. Patient completes activity by themselves 4 Supervision or touching assist (CGA). [place] provide cues , steadying assist 3 The helper provides less than half the effort to complete the activity 2 The helper provides more than half the effort to complete the activity 1 Dependent. The helper does all the effort to complete an activity 7 Patient refused to complete or attempt activity 9 The patient did not perform the activity before the current illness or injury 88 Not attempted due to Medical conditions or safety concerns Transfers (B, C, W/C) (FIM): 4 Scootin Rollin Supine to/from Sit: 5 Sit to/from Stand: 4 Bed to/from Chair: 4 Patient prefers to sit on the left side of the bed. Performs sit to stand and stand pivot transfers with CGA. Weight Bearing Right Lower Extremity: Right Weight Bearing/Tolerated Left Lower Extremity: Left Full Weight Bearing Wheelchair Training Wheelchair (FIM): 6 Distance: 150'x2 Type of Wheelchair: Manual Exercises NuStep Minutes: 15 NuStep Workload: 6 Treatments bed mobility and transfers, wheelchair mobility, functional strengthening Assessment Current Status: Fair Progress improving transfers PT Short Term Goals Short Term Goals Time Frame: Oct 11, 2017 Gait (FIM): 2 Distance (FIM): 3=045-55 ft Gait Distance Comment: 100 feet with FWW and armrest for RUE Gait Level of Assist: 4 Gait Assistive Device: Walker Platform Wheelchair (FIM): 3 Wheelchair distance (FIM): 3=150 ft Wheelchair Distance: 200 feet x2 Wheelchair Level of Assist: 5 Stairs (FIM): 1 # of Steps: 1 Stairs Level of Assist: 4 PT El Teacher Goals El Teacher Goals PT Care Home Goals Time Frame: Oct 25, 2017 Transfers (B,C,W/C) (FIM): 5 Sit to Lying (QC): 4 Lying-Sitting on Side/Bed(QC): 4 Sit to Stand (QC): 4 Rollin Roll Left to Right (QC): 4 Chair/Trh-ha-Iazhf Xfer(QC): 4 Car Transfer (QC): 4 Does the Patient Walk: Yes Gait (FIM): 5 Distance: 200 feet Walk 10 feet (QC): 4 Walk 10ft-Uneven Surface(QC): 4 Walk 50ft with 2 Turns (QC): 4 Walk 150 ft (QC): 4 Gait Level of Assist: 5 Gait Assistive Device: Walker Platform Does the Pt use WC or Scooter?: Yes Wheelchair (FIM): 6 Distance: 200 feet Wheelchair Level of Assist: 6 Wheel 50 feet with 2 turns (QC: 6 Stairs (FIM): 2 # of Steps: 4 1 Step (curb) (QC): 4 4 Steps (QC): 4 12 Steps (QC): 88 Stairs Level Of Assist: 5 Picking up an Object (QC): 88 PT Plan Problem List Problem List: Activity Tolerance, Functional Strength, Safety, Balance, Gait, Transfer, Bed Mobility, ROM Treatment/Plan Treatment Plan: Continue Plan of Care Treatment Plan: Bed Mobility, Concurrent Therapy, Education, Functional Activity Gregorio, Functional Strength, Group Therapy, Gait, Safety, Therapeutic Exercise, Transfers Treatment Duration: Oct 25, 2017 Frequency: At least 5 of 7 days/Wk (IRF) Estimated Hrs Per Day: 1.5 hours per day Patient and/or Family Agrees t: Yes Safety Risks/Education Patient Education: Transfer Techniques, Correct Positioning, W/C Management, Safety Issues Teaching Recipient: Patient Teaching Methods: Demonstration, Discussion Response to Teaching: Reinforcement Needed Time/GCodes Time In: 800 Time Out: 830 Total Billed Treatment Time: 30 Total Billed Treatment 1 visit EX 15' KRISHAN 15' JACKIE GRIDER PT Oct 14, 2017 08:36
[2017-10-14] MEDS: OXcarbazepine (TRILEPTAL) 300 MG TAB PO SCH ×2 (08:45→21:07)
[2017-10-14] MEDS: CLOPIDOGREL 75 MG (PLAVIX) TABLET PO SCH (08:45)
[2017-10-14] MEDS: ALLOPURINOL 100 MG (ZYLOPRIM) TAB PO SCH (08:46)
[2017-10-14] MEDS: amLODIPine 10 MG (NORVASC) TAB PO SCH (08:46)
[2017-10-14] MEDS: SENNA W/DOCUSATE (SENOKOT S) TABLET PO SCH ×2 (08:46→21:07)
[2017-10-14] MEDS: LOSARTAN 50 MG (COZAAR) TAB PO SCH (08:46)
[2017-10-14 21:01] VITALS: BP 161/78
[2017-10-14] MEDS: inSUlin DETERMIR 1 UNIT/0.01 ML (LEVEMIR) CHARGE PER UNIT SQ SCH (21:07)
[2017-10-14] MEDS: FAMOTIDINE 20 MG (PEPCID) TABLET PO SCH (21:07)
[2017-10-14] MEDS: TERAZOSIN 2 MG (HYTRIN) CAP PO SCH (21:07)
[2017-10-15] MEDS: inSUlin ASPART (NovoLOG) 1 UNIT/0.01 ML (CHARGE PER UNIT) SC SCH ×4 (05:53→21:01)
[2017-10-15 06:00] VITALS: BP 135/82
[2017-10-15] MEDS: IBUPROFEN 800 MG (MOTRIN) TAB PO SCH ×3 (06:34→16:28)
[2017-10-15] MEDS: oxyCODONE/APAP 5/325MG (PERCOCET 5) TABLET PO PRN ×3 (06:51→20:59)
[2017-10-15] MEDS: amLODIPine 10 MG (NORVASC) TAB PO SCH (08:27)
[2017-10-15] MEDS: CLOPIDOGREL 75 MG (PLAVIX) TABLET PO SCH (08:27)
[2017-10-15] MEDS: LOSARTAN 50 MG (COZAAR) TAB PO SCH (08:27)
[2017-10-15] MEDS: ALLOPURINOL 100 MG (ZYLOPRIM) TAB PO SCH (08:27)
[2017-10-15] MEDS: OXcarbazepine (TRILEPTAL) 300 MG TAB PO SCH ×2 (08:27→20:59)
[2017-10-15] MEDS: SENNA W/DOCUSATE (SENOKOT S) TABLET PO SCH ×2 (08:27→21:01)
[2017-10-15 18:00] VITALS: BP 144/78
[2017-10-15] MEDS: FAMOTIDINE 20 MG (PEPCID) TABLET PO SCH (20:59)
[2017-10-15] MEDS: TERAZOSIN 2 MG (HYTRIN) CAP PO SCH (21:00)
[2017-10-15] MEDS: inSUlin DETERMIR 1 UNIT/0.01 ML (LEVEMIR) CHARGE PER UNIT SQ SCH (21:01)
[2017-10-16 05:09] VITALS: BP 155/74
[2017-10-16] MEDS: inSUlin ASPART (NovoLOG) 1 UNIT/0.01 ML (CHARGE PER UNIT) SC SCH ×4 (05:10→20:40)
[2017-10-16] MEDS: IBUPROFEN 800 MG (MOTRIN) TAB PO SCH ×3 (06:00→16:14)
[2017-10-16] MEDS: OXcarbazepine (TRILEPTAL) 300 MG TAB PO SCH ×2 (07:32→20:40)
[2017-10-16] MEDS: amLODIPine 10 MG (NORVASC) TAB PO SCH (07:32)
[2017-10-16] MEDS: CLOPIDOGREL 75 MG (PLAVIX) TABLET PO SCH (07:32)
[2017-10-16] MEDS: SENNA W/DOCUSATE (SENOKOT S) TABLET PO SCH ×2 (07:33→20:40)
[2017-10-16] MEDS: oxyCODONE/APAP 5/325MG (PERCOCET 5) TABLET PO PRN ×3 (07:33→20:40)
[2017-10-16] MEDS: ALLOPURINOL 100 MG (ZYLOPRIM) TAB PO SCH (07:33)
[2017-10-16] MEDS: LOSARTAN 50 MG (COZAAR) TAB PO SCH (07:33)
--- NOTE | 2017-10-16 10:33 | Speech Therapy Daily Note ---
Speech Daily Progress Note Subjective Date Seen by Provider: Oct 16, 2017 Time Seen by Provider: 08:27 The patient was seated in his wheelchair, in the [facility] area, upon initiation of the treatment session. The patient greeted the clinician appropriately and was agreeable to participation in the language treatment session. Objective Structured Conversation: The patient was poised with specific conversation topics and asked to complete word-finding strategies throughout discussion. The patient was asked, "what is the perfect age?" and "what is your favorite place you visited?" The patient discussed the topics with mild clinician prompting and with intermittent use of word-finding strategy. The patient was prompted to describe a specific location when difficulty occurred. While the patient is discussing common topics, he displays limited difficulty with word-finding. Structured Word-Finding Task: The patient was provided a specific category and asked to provide a word that begins with a specific letter and belongs in the category. The patient displayed moderate difficulty with this task, requiring frequent repetition of the category and specific letter, as well as, cues and descriptions of possible responses. Assessment Assessment Current Status: Fair Progress Treatment Plan Continue Plan of Care Communication Comprehension: 5 Expression: 4 Social Cognition Social Interaction: 5 Problem Solvin Memory: 6 Speech Short Term Goals Short Term Goals Short Term Goals 1. The patient will recall and demonstrate three word-finding strategies with mild clinician verbal prompting. 2. The patient will display 80% accuracy with structured word-finding tasks with mild clinician verbal prompting. Time Frame-STG: Ten Days Speech First Leveler Goals Long-Term Goals 1. The patient will demonstrate improved expressive communication for increased function and safety with ADL's in the least restrictive setting. Time Frame: Two Weeks Comprehension: 5 Expression: 5 Social Interaction: 6 Problem Solvin Memory: 6 Speech-Plan Treatment Plan Speech Therapy Treatment Plan: Continue Plan of Care Continue skilled speech pathology to target functional word-finding and improved expressive communication. Treatment Duration: Oct 18, 2017 Frequency: Modified Program (IRF) (Four to five times per day.) Estimated Hrs Per Day: .5 hour per day Rehab Potential: Good Safety Risks/Education Teaching Recipient: Patient Teaching Methods: Discussion Response to Teaching: Verbalize Understanding Education Topics Provided: Word-Finding Strategies Time Speech Therapy Time In: 08:27 Speech Therapy Time Out: 08:57 Total Billed Time: 30 Billed Treatment Time 1JESSICA ELIZABETH ST Oct 16, 2017 10:33
--- NOTE | 2017-10-16 11:01 | Physical Therapy Daily Note ---
PT Daily Note-Current Subjective Pt is sitting in [facility] in [facility] area pre tx and agrees to PT. Pt has no complaints of pain at this time. Appearance Pt is sitting in recliner post tx with legs elevated. Pt has phone, remote, and tray within reach. Mental Status Patient Orientation: Normal For Age Transfers Functional [place] Measure 0=Not Assessed/NA 4=Minimal Assistance 1=Total Assistance 5=Supervision or Setup 2=Maximal Assistance 6=Modified [place] 3=Moderate Assistance 7=Complete IndependenceIRFPAI Quality Coding Scale 6 Independent with activity with or without an assistive device 5 Patient requires set up or clean up by helper. Patient completes activity by themselves 4 Supervision or touching assist (CGA). [place] provide cues , steadying assist 3 The helper provides less than half the effort to complete the activity 2 The helper provides more than half the effort to complete the activity 1 Dependent. The helper does all the effort to complete an activity 7 Patient refused to complete or attempt activity 9 The patient did not perform the activity before the current illness or injury 88 Not attempted due to Medical conditions or safety concerns Scootin Rollin Supine to/from Sit: 3 Sit to/from Stand: 4 Bed to/from Chair: 3 Transfers performed to the R, which is more difficult for him due to R knee injury. Weight Bearing Right Lower Extremity: Right Weight Bearing/Tolerated Left Lower Extremity: Left Full Weight Bearing Gait Training Does the Patient Walk?: No and Walking Goal IS indicated Wheelchair Training Does the Pt Use a Wheelchair?: Yes Wheelchair (FIM): 5 Distance: 200 feet x2 Wheelchair Level of Assist: 5 Type of Wheelchair: Manual Pt encouraged to propel [facility] with both feet. Exercises Supine Ex: Quad Set (10 x1 BLE), Short Arc Quads (10 x2) Pt was not able to perform SAQ in supine concentrically with the RLE. Pt had better success when eccentrically lowering the leg from an elevated position. Pt performed side-lying SAQ with the RLE with reports of decreased pain. Treatments Pt performed [facility] mobility and LE strengthening. Assessment Current Status: Poor Progress Pt reports immense pain "in the knee joint" during movement of the RLE. Pt prefers to keep the R knee flexed in supine. Pt demonstrated success during SAQ in side-lying on the R. PT Short Term Goals Short Term Goals Time Frame: Oct 11, 2017 Gait (FIM): 2 Distance (FIM): 1=087-77 ft Gait Distance Comment: 100 feet with FWW and armrest for RUE Gait Level of Assist: 4 Gait Assistive Device: Walker Platform Wheelchair (FIM): 3 Wheelchair distance (FIM): 3=150 ft Wheelchair Distance: 150'x2 Wheelchair Level of Assist: 5 Stairs (FIM): 1 # of Steps: 1 Stairs Level of Assist: 4 PT Toy Assembler Goals Long-Term Goals PT Toy Assembler Goals Time Frame: Oct 25, 2017 Transfers (B,C,W/C) (FIM): 5 Sit to Lying (QC): 4 Lying-Sitting on Side/Bed(QC): 4 Sit to Stand (QC): 4 Rollin Roll Left to Right (QC): 4 Chair/Iws-by-Klkvf Xfer(QC): 4 Car Transfer (QC): 4 Does the Patient Walk: Yes Gait (FIM): 5 Distance: 200 feet Walk 10 feet (QC): 4 Walk 10ft-Uneven Surface(QC): 4 Walk 50ft with 2 Turns (QC): 4 Walk 150 ft (QC): 4 Gait Level of Assist: 5 Gait Assistive Device: Walker Platform Does the Pt use WC or Scooter?: Yes Wheelchair (FIM): 6 Distance: 200 feet Wheelchair Level of Assist: 6 Wheel 50 feet with 2 turns (QC: 6 Stairs (FIM): 2 # of Steps: 4 1 Step (curb) (QC): 4 4 Steps (QC): 4 12 Steps (QC): 88 Stairs Level Of Assist: 5 Picking up an Object (QC): 88 PT Plan Problem List Problem List: Activity Tolerance, Functional Strength, Safety, Balance, Gait, Transfer, Bed Mobility, ROM Treatment/Plan Treatment Plan: Continue Plan of Care Treatment Plan: Bed Mobility, Concurrent Therapy, Education, Functional Activity Gregorio, Functional Strength, Group Therapy, Gait, Safety, Therapeutic Exercise, Transfers Treatment Duration: Oct 25, 2017 Frequency: At least 5 of 7 days/Wk (IRF) Estimated Hrs Per Day: 1.5 hours per day Patient and/or Family Agrees t: Yes Safety Risks/Education Patient Education: Transfer Techniques, Correct Positioning, W/C Management, Safety Issues Teaching Recipient: Patient Teaching Methods: Demonstration, Discussion Response to Teaching: Verbalize Understanding, Return Demonstration, Reinforcement Needed Time/GCodes Time In: 900 Time Out: 1000 Total Billed Treatment Time: 60 Total Billed Treatment 1 visit 15 min WC 10 min FA 35 min EX JACKIE GRIDER PT Oct 16, 2017 11:01
--- NOTE | 2017-10-16 13:41 | Occupational Ther Daily Note ---
OT Current Status-Daily Note Subjective Pt seen in room, up in recliner, agreeable to OT. Pt did not want to change shirt but did want to wash bottom half of body and change pants and socks. Pt reported R knee was more painful today but did not rate or describe it. Appearance Alert, cooperative Mental Status/Objective Functional [place] Measure 0=Not Assessed/NA 4=Minimal Assistance 1=Total Assistance 5=Supervision or Setup 2=Maximal Assistance 6=Modified [place] 3=Moderate Assistance 7=Complete [place] ADL-Treatment Pt stood min assist from recliner and walked with min assist, platform walker, to bed to sit EOB. He was able to stand min assist to pull pants down over his hips, using FWW and a little help supporting R UE on platform. Once sitting down , he could take socks and shoes off as well, modified technique to get to L foot. He was able to wash all parts of lower body with sponge bath with setup and , with instruction and education, was able to lean to the right to wash bottom (BM smears), which he said that he had never done before but was pleased that he could do it. He was able to get socks and shoes on, using sock aid and long handled shoe horn. Min assist sit to stand and a little help to pull pants up. He reported that he had brushed his teeth and combed his hair earlier today , w/c level. Pt transferred with min assist to w/c and was left up in w/c for lunch, all needs met. Functional [place] Measure 0=Not Assessed/NA 4=Minimal Assistance 1=Total Assistance 5=Supervision or Setup 2=Maximal Assistance 6=Modified [place] 3=Moderate Assistance 7=Complete IndependenceIRFPAI Quality Coding Scale 6 Independent with activity with or without an assistive device 5 Patient requires set up or clean up by helper. Patient completes activity by themselves 4 Supervision or touching assist (CGA). [place] provide cues , steadying assist 3 The helper provides less than half the effort to complete the activity 2 The helper provides more than half the effort to complete the activity 1 Dependent. The helper does all the effort to complete an activity 7 Patient refused to complete or attempt activity 9 The patient did not perform the activity before the current illness or injury 88 Not attempted due to Medical conditions or safety concerns Lower Body Dressing (FIM): 4 Transfers (B, C, W/C) (FIM): 4 Education OT Patient Education: Progress toward Goal/Update tx plan, Purpose of tx/ functional activities, Transfer techniques Teaching Recipient: Patient Teaching Methods: Demonstration, Discussion Response to Teaching: Verbalize Understanding, Return Demonstration, Reinforcement Needed OT Short Term Goals Short Term Goals Time Frame: Oct 13, 2017 Toileting(FIM): 3 Toilet/Commode Transfer(FIM): 3 Shower Transfer(FIM): 3 Additional Short Term Goals: 1-Demonstrate ADL Tasks, 2-Verbalize Understanding , 3-ImproveStrength/Gregorio 1=Demonstrate adherence to instructed precautions during ADL tasks. 2=Patient will verbalize/demonstrate understanding of assistive devices/ modifications for ADL. 3=Patient will improve strength/tolerance for activity to enable patient to perform ADL's. OT Youth Career Specialist Goals Youth Career Specialist Goals Time Frame: Oct 25, 2017 Eating (FIM): 6 Eating (QC): 6 Groomin Oral Hygiene (QC): 6 Bathing(FIM): 6 Shower/Bathe Self (QC): 6 Upper Body Dressing(FIM): 6 Upper Body Dressing (QC): 6 Lower Body Dressing(FIM): 6 Lower Body Dressing (QC): 6 On/Off Footwear (QC): 6 Toileting(FIM): 6 Toileting Hygiene (QC): 6 Transfers (B,C,W/C) (FIM): 6 Toilet/Commode Transfer(FIM): 6 Toilet/Commode Transfer (QC): 6 Shower Transfer(FIM): 6 Comprehension(FIM): 5 Expression (FIM): 5 Social Interaction(FIM): 6 Problem Solving(FIM): 5 Memory(FIM): 6 Additional Goals: 1-Demonstrate ADL Tasks, 2-Verbalize Understanding, 3- ImproveStrength/Gregorio 1=Demonstrate adherence to instructed precautions during ADL tasks. 2=Patient will verbalize/demonstrate understanding of assistive devices/ modifications for ADL. 3=Patient will improve strength/tolerance for activity to enable patient to perform ADL's. OT Education/Plan Problem List/Assessment Pt would benefit from skilled OT to increase his independence in basic self care to allow him to safely return to his home to live with his and to decrease caregiver burden. Discharge Recommendations Plan/Recommendations: Continue POC Treatment Plan/Plan of Care Patient would benefit from OT for education, treatment and training to promote independence in ADL's, mobility, safety and/or upper extremity function for ADL' s. Plan of Care: ADL Retraining, Functional Mobility, Group Exercise/Act as Ind ( education, exercise, act tolerance, problem solving, funct mobility, communication, socialization), UE Funct Exercise/Act, UE Neuromus Re-Ed/Coord Treatment Duration: Oct 25, 2017 Frequency: At least 5 of 7 days/Wk (IRF) Estimated Hrs Per Day: 1.5 hours per day (1-25 to 1.5) Agreement: Yes Rehab Potential: Good Time/GCodes Start Time: 11:15 Stop Time: 12:00 Total Time Billed (hr/min): 45 Billed Treatment Time visit, 45 minutes ADL TERE DEL CASTILLO OT Oct 16, 2017 13:41
--- NOTE | 2017-10-16 14:41 | Therapy Group Daily Note ---
Therapy Daily Group Note Patient Education Topic Other List Below (flu vaccine, proper handwashing technique) Exercises LE Seated Exercise, UE Exercise, Other (breating and eye exercises) Other/Notes Pt. participated in group PT OT session this date. Pt. came to and from via w/ c. Pt. very much enjoyed socializing and sharing his name, home town and favorite winter activity; [place] and friends. Proper Handwashing was demonstrated to all patients and they were given opportunity to either stand if they were possible or use buyer renter . This Pt. used hand buyer renter with assistance. Education regarding flu vaccine and disease prevention was discussed. Pts participated in seated U&L extremity ther ex as well as eye and breathing exercises. Pt. to room with assist to get in bed. Duran at hand, needs met. Start Time: 13:00 Stop Time: 14:10 Total Billed Treatment Time: 70 Total Billed Treatment 1,GRP ARANZA GEIGER FOREST ECOLOGIST Oct 16, 2017 14:41
[2017-10-16 18:25] VITALS: BP 173/93
--- NOTE | 2017-10-16 18:48 | Progress Note (SOAP) ---
Subjective Time Seen by Provider: 06:45 Subjective/Events-last exam common quadriceps tendon sprain. Hypertension today to monitor. patient voices no complaints Objective Exam Vital Signs Date Time Temp Pulse Resp B/P (MAP) Pulse Ox O2 Delivery O2 Flow Rate FiO2 10/16/17 18:25 98.9 51 17 173/93 (119) 99 Room Air 10/16/17 08:00 Room Air 10/16/17 05:09 98.5 62 18 155/74 (101) 96 Room Air 10/15/17 20:00 Room Air I & O 10/16/17 07:00 Intake Total 1265 ml Output Total 1650 ml Balance -385 ml Capillary Refill : Less Than 3 Seconds General Appearance: No Apparent Distress, WD/WN Results Lab Laboratory Tests 10/15/17 20:43: Glucometer 293H 10/16/17 03:43: Glucometer 130H 10/16/17 11:22: Glucometer 230H 10/16/17 16:05: Glucometer 222H Assessment/Plan Assessment/Plan Assess & Plan/Chief Complaint common quadriceps tendon sprain. Previous CVA. Diabetes. Renal insufficiency. . 10/05/17 , Quadriceps tendon sprain. Previous CVA. Diabetes. Renal insufficiency. sugars are running high. increase Levemir. . 10/06/17 Quadriceps tendon sprain. Previous CVA. Diabetes under good control renal insufficiency. Patient doing better. . 10/09/17. , Quadriceps tendon sprain. Previous CVA. Diabetes. Renal insufficiency Patient getting around better and feeling better about himself. . , Quadriceps tendon sprain. *CVA. 10/10/17. patient slowly improving. . 10/11/17. Previous CVA. And quadriceps tendon sprain. Renal insufficiency. Diabetes. . 10/12/17. , Quadriceps tendon sprain. Previous CVA. Renal insufficiency. Diabetes. Patient a work in progress. . 10/13/17. Common quadriceps tendon strain. Previous CVA. Diabetes. Renal insufficiency patient working hard to improve himself. . 10/16/17. , Quadriceps tendon sprain. Previous CVA. Diabetes. Renal insufficiency. Blood pressure elevated today Clinical Quality Measures DVT/VTE Risk/Contraindication: Risk Factor Score Per Nursin RFS Level Per Nursing on Admit: 4+=Very High WILLIAN NAGEL DO Oct 16, 2017 18:48
--- NOTE | 2017-10-16 19:17 | PM & R (SOAP) Progress Note ---
Subjective Time Seen by Provider: 19:00 Subjective/Events-last exam Patient was seen in his room this evening Patient Mod assist for transfers.Had BM 2 days ago.Accucheks noted Objective Exam Last Set of Vital Signs Vital Signs Date Time Temp Pulse Resp B/P (MAP) Pulse Ox O2 Delivery O2 Flow Rate FiO2 10/16/17 18:25 98.9 51 17 173/93 (119) 99 Room Air Capillary Refill : Less Than 3 Seconds I&O Intake and Output 10/16/17 00:00 Intake Total 1385 ml Output Total 1800 ml Balance -415 ml Intake Oral 1385 ml Output Urine Total 1800 ml General: Alert, Oriented X3, Cooperative, No Acute Distress HEENT: Atraumatic, PERRLA, EOMI, Mucous Memb Moist/[place], Other (mild expressive aphasia) Neck: Supple, No JVD Lungs: Clear to Auscultation Heart: Regular Rate Abdomen: Normal Bowel Sounds, Soft, No Tenderness Extremities: No Edema Neuro: Other (Mild rt HP has antigravity strength RT knee in immobilizer) Results Lab Laboratory Tests 10/13/17 20:35: Glucometer 213H 10/14/17 04:24: Glucometer 269H 10/14/17 11:14: Glucometer 154H 10/14/17 16:21: Glucometer 310H 10/14/17 21:05: Glucometer 144H 10/15/17 04:39: Glucometer 119H 10/15/17 11:22: Glucometer 204H 10/15/17 16:20: Glucometer 249H 10/15/17 20:43: Glucometer 293H 10/16/17 03:43: Glucometer 130H 10/16/17 11:22: Glucometer 230H 10/16/17 16:05: Glucometer 222H Assessment/Plan Assessment Fall with Knee pain Quadriceps strain Prior RT TKR DR Dimas [facility] approx 2007 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
[2017-10-16] MEDS: FAMOTIDINE 20 MG (PEPCID) TABLET PO SCH (20:40)
[2017-10-16] MEDS: inSUlin DETERMIR 1 UNIT/0.01 ML (LEVEMIR) CHARGE PER UNIT SQ SCH (20:40)
[2017-10-16] MEDS: TERAZOSIN 2 MG (HYTRIN) CAP PO SCH (20:40)
[2017-10-17 05:03] VITALS: BP 160/76
[2017-10-17] MEDS: inSUlin ASPART (NovoLOG) 1 UNIT/0.01 ML (CHARGE PER UNIT) SC SCH ×4 (05:05→20:21)
[2017-10-17] MEDS: IBUPROFEN 800 MG (MOTRIN) TAB PO SCH (06:06)
[2017-10-17 07:55] VITALS: BP 189/86
[2017-10-17] MEDS: oxyCODONE/APAP 5/325MG (PERCOCET 5) TABLET PO PRN ×4 (07:57→22:27)
[2017-10-17] MEDS: ALLOPURINOL 100 MG (ZYLOPRIM) TAB PO SCH (07:57)
[2017-10-17] MEDS: amLODIPine 10 MG (NORVASC) TAB PO SCH (07:57)
[2017-10-17] MEDS: SENNA W/DOCUSATE (SENOKOT S) TABLET PO SCH ×2 (07:57→20:21)
[2017-10-17] MEDS: OXcarbazepine (TRILEPTAL) 300 MG TAB PO SCH ×2 (07:57→20:21)
[2017-10-17] MEDS: CLOPIDOGREL 75 MG (PLAVIX) TABLET PO SCH (07:58)
[2017-10-17] MEDS: LOSARTAN 50 MG (COZAAR) TAB PO SCH (07:58)
--- NOTE | 2017-10-17 08:28 | PM & R (SOAP) Progress Note ---
Subjective Time Seen by Provider: 07:50 Subjective/Events-last exam Patient was seen in his room this AM Patient min to mod assist for transfers Objective Exam Last Set of Vital Signs Vital Signs Date Time Temp Pulse Resp B/P (MAP) Pulse Ox O2 Delivery O2 Flow Rate FiO2 10/17/17 08:01 Room Air 10/17/17 07:55 65 189/86 (120) 10/17/17 05:03 97.0 16 96 Capillary Refill : Less Than 3 Seconds I&O Intake and Output 10/17/17 00:00 Intake Total 1040 ml Output Total 1525 ml Balance -485 ml Intake Oral 1040 ml Output Urine Total 1525 ml General: Alert, Oriented X3, Cooperative, No Acute Distress HEENT: Atraumatic, PERRLA, EOMI, Mucous Memb Moist/[place], Other (mild expressive aphasia) Neck: Supple, No JVD Lungs: Clear to Auscultation Heart: Regular Rate Abdomen: Normal Bowel Sounds, Soft, No Tenderness Extremities: No Edema Neuro: Other (Mild rt HP has antigravity strength RT knee in immobilizer) Results Lab Laboratory Tests 10/14/17 11:14: Glucometer 154H 10/14/17 16:21: Glucometer 310H 10/14/17 21:05: Glucometer 144H 10/15/17 04:39: Glucometer 119H 10/15/17 11:22: Glucometer 204H 10/15/17 16:20: Glucometer 249H 10/15/17 20:43: Glucometer 293H 10/16/17 03:43: Glucometer 130H 10/16/17 11:22: Glucometer 230H 10/16/17 16:05: Glucometer 222H 10/16/17 20:20: Glucometer 253H 10/17/17 04:16: Glucometer 125H Assessment/Plan Assessment Fall with Knee pain Quadriceps strain Prior RT TKR DR Dimas [facility] approx 2007 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
--- NOTE | 2017-10-17 08:29 | Occupational Ther Daily Note ---
OT Current Status-Daily Note Subjective Pt sleeping in bed. Woke easily to name. Pt agreed to therapy. Pt c/o pain 7/ 10, reported to nrsg and nrsg administered pain meds. Mental Status/Objective Patient Orientation: Person, Place, Non-Verbal/Aphasic, Time, Situation Functional [place] Measure 0=Not Assessed/NA 4=Minimal Assistance 1=Total Assistance 5=Supervision or Setup 2=Maximal Assistance 6=Modified [place] 3=Moderate Assistance 7=Complete [place] ADL-Treatment Pt was able to go from supine to sitting EOB using raised HOB and bed rails. Pt then transferred from bed to w/c with close SBA. Pt doffed socks sitting in w/c. Then completed shower transfer using FWW, w/c and grabbars with CGA for safety. Pt completed shower with supervision using grabbar, hand held shower and shower bench. Pt leaned side to side to cleanse buttocks. Pt was able to dry all parts except buttocks. Pt was able to don pants sitting on EOB. Used sock aide to don socks and long handle shoe horn to don shoes. Pt then transferred back to w/c to complete grooming sitting in front of sink. Pt donned shirt sitting in w/c. Pt then requested to use toilet. Pt transferred to toilet with close SBA using grabbar. Assist to manipulate clothing. Pt cleansed self sitting on toilet. Pt then transferred back to recliner with SBA. After therapy, pt sitting in recliner with call light/phone in reach. All needs met in room. Functional [place] Measure 0=Not Assessed/NA 4=Minimal Assistance 1=Total Assistance 5=Supervision or Setup 2=Maximal Assistance 6=Modified [place] 3=Moderate Assistance 7=Complete IndependenceIRFPAI Quality Coding Scale 6 Independent with activity with or without an assistive device 5 Patient requires set up or clean up by helper. Patient completes activity by themselves 4 Supervision or touching assist (CGA). [place] provide cues , steadying assist 3 The helper provides less than half the effort to complete the activity 2 The helper provides more than half the effort to complete the activity 1 Dependent. The helper does all the effort to complete an activity 7 Patient refused to complete or attempt activity 9 The patient did not perform the activity before the current illness or injury 88 Not attempted due to Medical conditions or safety concerns Grooming (FIM): 6 Oral Hygiene (QC): 6 Bathing (FIM): 4 Bathing Location: L Arm, R Arm, L Upper Leg, R Upper Leg, L Lower Leg ( including foot), R Lower Leg (including foot), Chest, Abdomen, Buttocks, Perineal Area Shower/Bathe Self (QC): 3 Upper Body (FIM): 5 Upper Body Dressing (QC): 5 Lower Body Dressing (FIM): 4 Lower Body Dressing (QC): 3 On/Off Footwear (QC): 5 Toileting (FIM): 4 Toileting Hygiene (QC): 3 Toilet/Commode Transfer (FIM): 5 Toilet Transfer (QC): 4 Shower Transfer(FIM): 4 OT Short Term Goals Short Term Goals Time Frame: Oct 13, 2017 Toileting(FIM): 3 Toilet/Commode Transfer(FIM): 3 Shower Transfer(FIM): 3 Additional Short Term Goals: 1-Demonstrate ADL Tasks, 2-Verbalize Understanding , 3-ImproveStrength/Gregorio 1=Demonstrate adherence to instructed precautions during ADL tasks. 2=Patient will verbalize/demonstrate understanding of assistive devices/ modifications for ADL. 3=Patient will improve strength/tolerance for activity to enable patient to perform ADL's. OT Fdc Goals Mine Utility Operator Goals Time Frame: Oct 25, 2017 Eating (FIM): 6 Eating (QC): 6 Groomin Oral Hygiene (QC): 6 Bathing(FIM): 6 Shower/Bathe Self (QC): 6 Upper Body Dressing(FIM): 6 Upper Body Dressing (QC): 6 Lower Body Dressing(FIM): 6 Lower Body Dressing (QC): 6 On/Off Footwear (QC): 6 Toileting(FIM): 6 Toileting Hygiene (QC): 6 Transfers (B,C,W/C) (FIM): 6 Toilet/Commode Transfer(FIM): 6 Toilet/Commode Transfer (QC): 6 Shower Transfer(FIM): 6 Comprehension(FIM): 5 Expression (FIM): 5 Social Interaction(FIM): 6 Problem Solving(FIM): 5 Memory(FIM): 6 Additional Goals: 1-Demonstrate ADL Tasks, 2-Verbalize Understanding, 3- ImproveStrength/Gregorio 1=Demonstrate adherence to instructed precautions during ADL tasks. 2=Patient will verbalize/demonstrate understanding of assistive devices/ modifications for ADL. 3=Patient will improve strength/tolerance for activity to enable patient to perform ADL's. OT Education/Plan Problem List/Assessment Pt would benefit from skilled OT to increase his independence in basic self care to allow him to safely return to his home to live with his and to decrease caregiver burden. Discharge Recommendations Plan/Recommendations: Continue POC Treatment Plan/Plan of Care Patient would benefit from OT for education, treatment and training to promote independence in ADL's, mobility, safety and/or upper extremity function for ADL' s. Plan of Care: ADL Retraining, Functional Mobility, Group Exercise/Act as Ind ( education, exercise, act tolerance, problem solving, funct mobility, communication, socialization), UE Funct Exercise/Act, UE Neuromus Re-Ed/Coord Treatment Duration: Oct 25, 2017 Frequency: At least 5 of 7 days/Wk (IRF) Estimated Hrs Per Day: 1.5 hours per day (1-25 to 1.5) Agreement: Yes Rehab Potential: Good Time/GCodes Start Time: 07:00 Stop Time: 08:30 Total Time Billed (hr/min): 90 Billed Treatment Time 1 visit-ADL 6 (90 min) RU BURGESS Oct 17, 2017 08:28
--- NOTE | 2017-10-17 08:35 | Progress Note (SOAP) ---
Subjective Time Seen by Provider: 08:35 Subjective/Events-last exam patient feeling better today. Last 2 days blood pressure elevated. To stop nonsteroidal and put on low sodium diet Objective Exam Vital Signs Date Time Temp Pulse Resp B/P (MAP) Pulse Ox O2 Delivery O2 Flow Rate FiO2 10/17/17 08:01 Room Air 10/17/17 07:55 65 189/86 (120) 10/17/17 05:03 97.0 54 16 160/76 (104) 96 Room Air 10/16/17 19:58 Room Air 10/16/17 18:25 98.9 51 17 173/93 (119) 99 Room Air I & O 10/17/17 07:00 Intake Total 1040 ml Output Total 1525 ml Balance -485 ml Capillary Refill : Less Than 3 Seconds General Appearance: No Apparent Distress, WD/WN Results Lab Laboratory Tests 10/16/17 11:22: Glucometer 230H 10/16/17 16:05: Glucometer 222H 10/16/17 20:20: Glucometer 253H 10/17/17 04:16: Glucometer 125H Assessment/Plan Assessment/Plan Assess & Plan/Chief Complaint common quadriceps tendon sprain. Previous CVA. Diabetes. Renal insufficiency. . 10/05/17 , Quadriceps tendon sprain. Previous CVA. Diabetes. Renal insufficiency. sugars are running high. increase Levemir. . 10/06/17 Quadriceps tendon sprain. Previous CVA. Diabetes under good control renal insufficiency. Patient doing better. . 10/09/17. , Quadriceps tendon sprain. Previous CVA. Diabetes. Renal insufficiency Patient getting around better and feeling better about himself. . , Quadriceps tendon sprain. *CVA. 10/10/17. patient slowly improving. . 10/11/17. Previous CVA. And quadriceps tendon sprain. Renal insufficiency. Diabetes. . . 10/12/17. , Quadriceps tendon sprain. Previous CVA. Renal insufficiency. Diabetes. Patient a work in progress. . 10/13/17. Common quadriceps tendon strain. Previous CVA. Diabetes. Renal insufficiency patient working hard to improve himself. . 10/16/17. , Quadriceps tendon sprain. Previous CVA. Diabetes. Renal insufficiency. Blood pressure elevated today . 10/17/17. Quadriceps tendon sprain. Previous CVA. Diabetes. Renal insufficiency. New-onset hypertension. Patient feeling positive Clinical Quality Measures DVT/VTE Risk/Contraindication: Risk Factor Score Per Nursin RFS Level Per Nursing on Admit: 4+=Very High WILLIAN NAGEL DO Oct 17, 2017 08:35
--- NOTE | 2017-10-17 11:02 | Physical Therapy Daily Note ---
PT Daily Note-Current Subjective Pt sitting in recliner upon arrival. Pt agrees to PT. Pain Numeric Pain Scale: 7 Location: Right Location Body Site: Knee Pain Description: Ache Mental Status Patient Orientation: Person, Place, Situation Pt still exhibits difficulty expressing himself in speech, his words get lost. Transfers Functional [place] Measure 0=Not Assessed/NA 4=Minimal Assistance 1=Total Assistance 5=Supervision or Setup 2=Maximal Assistance 6=Modified [place] 3=Moderate Assistance 7=Complete IndependenceIRFPAI Quality Coding Scale 6 Independent with activity with or without an assistive device 5 Patient requires set up or clean up by helper. Patient completes activity by themselves 4 Supervision or touching assist (CGA). [place] provide cues , steadying assist 3 The helper provides less than half the effort to complete the activity 2 The helper provides more than half the effort to complete the activity 1 Dependent. The helper does all the effort to complete an activity 7 Patient refused to complete or attempt activity 9 The patient did not perform the activity before the current illness or injury 88 Not attempted due to Medical conditions or safety concerns Scootin Sit to/from Stand: 5 Sit to Stand (QC): 5 Weight Bearing Right Lower Extremity: Right Weight Bearing/Tolerated Left Lower Extremity: Left Full Weight Bearing Wheelchair Training Does the Pt Use a Wheelchair?: Yes Wheelchair Distance: 3=150 ft Distance: 200' Wheelchair Level of Assist: 5 Wheel 50 ft with 2 turns (QC): 5 Wheel 150 ft (QC): 5 Type of Wheelchair: Manual Exercises Seated Therapy Exercises: Ankle pumps, Long arc quads, Hip flexion, Kicking activity Seated Reps: 20 Treatments Pt discussed pain and how Therapy has been going with PT before transferring from recliner to [facility] using SPT at [facility]. Pt propels [facility] in hallway to Therapy Gym. Pt completes Seated Ex in [facility] in Gym before propelling back to room. Pt [facility]PT at [facility] to rest with feet reclined. Pt has all needs met at end of tx. Assessment Current Status: Good Progress Pt is motivated to complete tasks more independently each tx. PT Short Term Goals Short Term Goals Time Frame: Oct 11, 2017 Gait (FIM): 2 Distance (FIM): 4=261-01 ft Gait Distance Comment: 100 feet with FWW and armrest for RUE Gait Level of Assist: 4 Gait Assistive Device: Walker Platform Wheelchair (FIM): 3 Wheelchair distance (FIM): 3=150 ft Wheelchair Distance: 200 feet x2 Wheelchair Level of Assist: 5 Stairs (FIM): 1 # of Steps: 1 Stairs Level of Assist: 4 PT Maintenance Trainer Goals Maintenance Trainer Goals PT Intermediate Goals Time Frame: Oct 25, 2017 Transfers (B,C,W/C) (FIM): 5 Sit to Lying (QC): 4 Lying-Sitting on Side/Bed(QC): 4 Sit to Stand (QC): 4 Rollin Roll Left to Right (QC): 4 Chair/Gfr-uh-Bybnv Xfer(QC): 4 Car Transfer (QC): 4 Does the Patient Walk: Yes Gait (FIM): 5 Distance: 200 feet Walk 10 feet (QC): 4 Walk 10ft-Uneven Surface(QC): 4 Walk 50ft with 2 Turns (QC): 4 Walk 150 ft (QC): 4 Gait Level of Assist: 5 Gait Assistive Device: Walker Platform Does the Pt use WC or Scooter?: Yes Wheelchair (FIM): 6 Distance: 200 feet Wheelchair Level of Assist: 6 Wheel 50 feet with 2 turns (QC: 6 Stairs (FIM): 2 # of Steps: 4 1 Step (curb) (QC): 4 4 Steps (QC): 4 12 Steps (QC): 88 Stairs Level Of Assist: 5 Picking up an Object (QC): 88 PT Plan Problem List Problem List: Activity Tolerance, Functional Strength, Gait Treatment/Plan Treatment Plan: Continue Plan of Care Treatment Plan: Bed Mobility, Concurrent Therapy, Education, Functional Activity Gregorio, Functional Strength, Group Therapy, Gait, Safety, Therapeutic Exercise, Transfers Treatment Duration: Oct 25, 2017 Frequency: At least 5 of 7 days/Wk (IRF) Estimated Hrs Per Day: 1.5 hours per day Patient and/or Family Agrees t: Yes Safety Risks/Education Patient Education: Gait Training, Transfer Techniques, Correct Positioning, Safety Issues Teaching Recipient: Patient Teaching Methods: Discussion Response to Teaching: Verbalize Understanding Time/GCodes Time In: 1000 Time Out: 1045 Total Billed Treatment Time: 45 Total Billed Treatment 1, FA (15m), WCH (15m) & EX (15m) KYRIE LLOYD PTA Oct 17, 2017 11:02
--- NOTE | 2017-10-17 14:26 | Diagnostic Imaging Report ---
INDICATION: Medial knee pain, reported stroke affected side. TECHNIQUE: Three views of the right knee were performed. CORRELATION STUDY: None. FINDINGS: There are postoperative changes of right total knee arthroplasty. The hardware appears to be intact. The alignment is anatomic. No acute bony abnormality. There is suggestion of some generalized bony demineralization. The soft tissues appear unremarkable. IMPRESSION: Negative for acute bony abnormality of the knee. The postoperative right knee arthroplasty hardware appears intact. Dictated by: Dictated on workstation # [id number]
--- NOTE | 2017-10-17 14:50 | Speech Therapy Daily Note ---
Speech Daily Progress Note Subjective Date Seen by Provider: Oct 17, 2017 Time Seen by Provider: 08:30 The patient was seated upright in recliner upon entrance. The patient greeted the clinician appropriately and was agreeable to participation in the language treatment session. Objective Picture Description (functional word-finding): The patient was presented with images from the local newspaper and asked to describe the photograph. The patient demonstrated fair accuracy with this task, stating short phrases with intermittent pauses for word-finding. Moderate clinician prompting was required for increased phrase length, as well as, continued conversation and verbal input. Reading Comprehension: The patient was asked to read a short paragraph and retell a summary of the paragraph to the clinician. The patient demonstrate great difficulty with this task stating, "I can read it but I can't get it out. " Additionally, the patient stated, "sometimes what I read doesn't make sense." To aid in comprehension, the paragraph was read aloud by the clinician. Following the clinician's reading, the patient was asked to paraphrase the paragraph. The patient demonstrated increased ability and comprehension of spoken language and displayed improved accuracy with the task. Assessment Assessment Current Status: Fair Progress Treatment Plan Continue Plan of Care Communication Comprehension: 5 Expression: 4 Social Cognition Social Interaction: 5 Problem Solvin Memory: 6 Speech Short Term Goals Short Term Goals Short Term Goals 1. The patient will recall and demonstrate three word-finding strategies with mild clinician verbal prompting. 2. The patient will display 80% accuracy with structured word-finding tasks with mild clinician verbal prompting. Time Frame-STG: Ten Days Speech Jail Goals Jail Goals 1. The patient will demonstrate improved expressive communication for increased function and safety with ADL's in the least restrictive setting. Time Frame: Two Weeks Comprehension: 5 Expression: 5 Social Interaction: 6 Problem Solvin Memory: 6 Speech-Plan Treatment Plan Speech Therapy Treatment Plan: Continue Plan of Care Continue skilled speech pathology to target functional expressive communication and ease with word-finding ability. Treatment Duration: Oct 18, 2017 Frequency: Modified Program (IRF) (Four to five times per day.) Estimated Hrs Per Day: .5 hour per day Rehab Potential: Good Safety Risks/Education Teaching Recipient: Patient Teaching Methods: Discussion Response to Teaching: Verbalize Understanding Education Topics Provided: Reading Comprehension Strategies, Word-Finding Strategies Time Speech Therapy Time In: 08:30 Speech Therapy Time Out: 09:00 Total Billed Time: 30 Billed Treatment Time 1, ZELALEM ENRIQUEZ Oct 17, 2017 14:50
--- NOTE | 2017-10-17 14:51 | Physical Therapy Daily Note ---
PT Daily Note-Current Subjective Pt sitting in [facility] in Therapy Commons upon arrival. Pt agrees to PT despite reporting soreness from Xray jsut before PT. Pain Numeric Pain Scale: 5-Moderate Pain Location: Right Location Body Site: Knee Pain Description: Ache Mental Status Patient Orientation: Person, Place, Situation Transfers Functional [place] Measure 0=Not Assessed/NA 4=Minimal Assistance 1=Total Assistance 5=Supervision or Setup 2=Maximal Assistance 6=Modified [place] 3=Moderate Assistance 7=Complete IndependenceIRFPAI Quality Coding Scale 6 Independent with activity with or without an assistive device 5 Patient requires set up or clean up by helper. Patient completes activity by themselves 4 Supervision or touching assist (CGA). [place] provide cues , steadying assist 3 The helper provides less than half the effort to complete the activity 2 The helper provides more than half the effort to complete the activity 1 Dependent. The helper does all the effort to complete an activity 7 Patient refused to complete or attempt activity 9 The patient did not perform the activity before the current illness or injury 88 Not attempted due to Medical conditions or safety concerns Scootin Sit to/from Stand: 5 Sit to Stand (QC): 5 Weight Bearing Right Lower Extremity: Right Weight Bearing/Tolerated Left Lower Extremity: Left Full Weight Bearing Wheelchair Training Does the Pt Use a Wheelchair?: Yes Wheelchair Distance: 3=150 ft Distance: 200' Wheelchair Level of Assist: 5 Wheel 50 ft with 2 turns (QC): 5 Type of Wheelchair: Manual Exercises NuStep Minutes: 10 NuStep Workload: 5 Treatments Pt propels [facility] to Therapy Gym. Pt completes SPT from [facility] to NuStep at [facility]. Pt uses NuStep for 10m at Workload 5. Pt transfers back to [facility] at [facility]. Pt propels in hallway before returning to room to rest in bed. Pt transfers from [facility] to [facility] using SPT at [facility]. Pt rest Supine in bed at end of tx with all needs met. Assessment Current Status: Good Progress Pt is motivated to be more independent with transfers and mobility. PT Short Term Goals Short Term Goals Time Frame: Oct 11, 2017 Gait (FIM): 2 Distance (FIM): 2=787-15 ft Gait Distance Comment: 100 feet with FWW and armrest for RUE Gait Level of Assist: 4 Gait Assistive Device: Walker Platform Wheelchair (FIM): 3 Wheelchair distance (FIM): 3=150 ft Wheelchair Distance: 200' Wheelchair Level of Assist: 5 Stairs (FIM): 1 # of Steps: 1 Stairs Level of Assist: 4 PT Agency Development Manager Goals Agency Development Manager Goals PT Agency Development Manager Goals Time Frame: Oct 25, 2017 Transfers (B,C,W/C) (FIM): 5 Sit to Lying (QC): 4 Lying-Sitting on Side/Bed(QC): 4 Sit to Stand (QC): 4 Rollin Roll Left to Right (QC): 4 Chair/Ego-zf-Bgwqt Xfer(QC): 4 Car Transfer (QC): 4 Does the Patient Walk: Yes Gait (FIM): 5 Distance: 200 feet Walk 10 feet (QC): 4 Walk 10ft-Uneven Surface(QC): 4 Walk 50ft with 2 Turns (QC): 4 Walk 150 ft (QC): 4 Gait Level of Assist: 5 Gait Assistive Device: Walker Platform Does the Pt use WC or Scooter?: Yes Wheelchair (FIM): 6 Distance: 200 feet Wheelchair Level of Assist: 6 Wheel 50 feet with 2 turns (QC: 6 Stairs (FIM): 2 # of Steps: 4 1 Step (curb) (QC): 4 4 Steps (QC): 4 12 Steps (QC): 88 Stairs Level Of Assist: 5 Picking up an Object (QC): 88 PT Plan Problem List Problem List: Activity Tolerance, Balance, Gait Treatment/Plan Treatment Plan: Continue Plan of Care Treatment Plan: Bed Mobility, Concurrent Therapy, Education, Functional Activity Gregorio, Functional Strength, Group Therapy, Gait, Safety, Therapeutic Exercise, Transfers Treatment Duration: Oct 25, 2017 Frequency: At least 5 of 7 days/Wk (IRF) Estimated Hrs Per Day: 1.5 hours per day Patient and/or Family Agrees t: Yes Safety Risks/Education Patient Education: Gait Training, Transfer Techniques, Correct Positioning, Safety Issues Teaching Recipient: Patient Teaching Methods: Discussion Response to Teaching: Verbalize Understanding Time/GCodes Time In: 1430 Time Out: 1500 Total Billed Treatment 1, [facility] (15m) & EX (15m) KYRIE LLOYD PTA Oct 17, 2017 14:51
[2017-10-17 18:05] VITALS: BP 160/72
[2017-10-17] MEDS: FAMOTIDINE 20 MG (PEPCID) TABLET PO SCH (20:21)
[2017-10-17] MEDS: TERAZOSIN 2 MG (HYTRIN) CAP PO SCH (20:21)
[2017-10-17] MEDS: inSUlin DETERMIR 1 UNIT/0.01 ML (LEVEMIR) CHARGE PER UNIT SQ SCH (20:22)
[2017-10-18 05:04] VITALS: BP 162/68
[2017-10-18] MEDS: inSUlin ASPART (NovoLOG) 1 UNIT/0.01 ML (CHARGE PER UNIT) SC SCH ×4 (05:06→20:34)
[2017-10-18 07:10] LABS: BUN/CREATININE RATIO 18; CALCIUM 8.9 MG/DL (8.5-10.1); CARBON DIOXIDE 21 MMOL/L (21-32); CHLORIDE 105 MMOL/L (98-107); CREATININE SERUM 1.15 MG/DL (0.60-1.30); GFR ESTIMATED > 60; GLUCOSE 120 MG/DL (70-105); POTASSIUM 4.2 MMOL/L (3.6-5.0); SODIUM 136 MMOL/L (135-145)
[2017-10-18] MEDS: oxyCODONE/APAP 5/325MG (PERCOCET 5) TABLET PO PRN ×4 (07:17→22:12)
--- NOTE | 2017-10-18 08:06 | PM & R (SOAP) Progress Note ---
Subjective Time Seen by Provider: 07:50 Subjective/Events-last exam Patient was seen in his room this AM Patient spouse her to get update Will f/u with her and SW later today after Team Conference Informed them that Orthopedist will reassess his rt knee Xray done and report noted Awaiting their consult.Patient SBA for transfers Objective Exam Last Set of Vital Signs Vital Signs Date Time Temp Pulse Resp B/P (MAP) Pulse Ox O2 Delivery O2 Flow Rate FiO2 10/18/17 05:04 97.3 62 18 162/68 (99) 98 Room Air Capillary Refill : Less Than 3 Seconds I&O Intake and Output 10/18/17 00:00 Intake Total 1440 ml Output Total 1275 ml Balance 165 ml Intake Oral 1440 ml Output Urine Total 1275 ml # Voids 4 General: Alert, Oriented X3, Cooperative, No Acute Distress HEENT: Atraumatic, PERRLA, EOMI, Mucous Memb Moist/[place], Other (mild expressive aphasia) Neck: Supple, No JVD Lungs: Clear to Auscultation Heart: Regular Rate Abdomen: Normal Bowel Sounds, Soft, No Tenderness Extremities: No Edema Neuro: Other (Mild rt HP has antigravity strength RT knee in immobilizer) Results Lab Laboratory Tests 10/15/17 11:22: Glucometer 204H 10/15/17 16:20: Glucometer 249H 10/15/17 20:43: Glucometer 293H 10/16/17 03:43: Glucometer 130H 10/16/17 11:22: Glucometer 230H 10/16/17 16:05: Glucometer 222H 10/16/17 20:20: Glucometer 253H 10/17/17 04:16: Glucometer 125H 10/17/17 11:17: Glucometer 171H 10/17/17 16:04: Glucometer 204H 10/17/17 20:11: Glucometer 197H 10/18/17 04:59: Glucometer 96 10/18/17 06:45: Sodium Level 136, Potassium Level 4.2, Chloride Level 105, Carbon Dioxide Level 21, Anion Gap 10, Blood Urea Nitrogen 21H, Creatinine 1.15, Estimat Glomerular Filtration Rate > 60, BUN/Creatinine Ratio 18, Glucose Level 120H, Calcium Level 8.9 Assessment/Plan Assessment Fall with Knee pain Quadriceps strain Prior RT TKR DR Dimas [facility] approx 2007 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
--- NOTE | 2017-10-18 08:34 | Progress Note (SOAP) ---
Subjective Time Seen by Provider: 08:32 Subjective/Events-last exam patient's birthday is today. Patient moore found that he is in the hospital today n his birthday. Patient's kidney function is good. Back to normal. Objective Exam Vital Signs Date Time Temp Pulse Resp B/P (MAP) Pulse Ox O2 Delivery O2 Flow Rate FiO2 10/18/17 05:04 97.3 62 18 162/68 (99) 98 Room Air 10/17/17 20:34 Room Air 10/17/17 18:05 99.1 62 14 160/72 (101) 98 Room Air I & O 10/18/17 07:00 Intake Total 1550 ml Output Total 1200 ml Balance 350 ml Capillary Refill : Less Than 3 Seconds General Appearance: No Apparent Distress Results Lab Laboratory Tests 10/17/17 11:17: Glucometer 171H 10/17/17 16:04: Glucometer 204H 10/17/17 20:11: Glucometer 197H 10/18/17 04:59: Glucometer 96 10/18/17 06:45: Sodium Level 136, Potassium Level 4.2, Chloride Level 105, Carbon Dioxide Level 21, Anion Gap 10, Blood Urea Nitrogen 21H, Creatinine 1.15, Estimat Glomerular Filtration Rate > 60, BUN/Creatinine Ratio 18, Glucose Level 120H, Calcium Level 8.9 Assessment/Plan Assessment/Plan Assess & Plan/Chief Complaint common quadriceps tendon sprain. Previous CVA. Diabetes. Renal insufficiency. . 10/05/17 , Quadriceps tendon sprain. Previous CVA. Diabetes. Renal insufficiency. sugars are running high. increase Levemir. . 10/06/17 Quadriceps tendon sprain. Previous CVA. Diabetes under good control renal insufficiency. Patient doing better. . 10/09/17. , Quadriceps tendon sprain. Previous CVA. Diabetes. Renal insufficiency Patient getting around better and feeling better about himself. . , Quadriceps tendon sprain. *CVA. 10/10/17. patient slowly improving. . 10/11/17. Previous CVA. And quadriceps tendon sprain. Renal insufficiency. Diabetes. . . 10/12/17. , Quadriceps tendon sprain. Previous CVA. Renal insufficiency. Diabetes. Patient a work in progress. . 10/13/17. Common quadriceps tendon strain. Previous CVA. Diabetes. Renal insufficiency patient working hard to improve himself. . 10/16/17. , Quadriceps tendon sprain. Previous CVA. Diabetes. Renal insufficiency. Blood pressure elevated today . 10/17/17. Quadriceps tendon sprain. Previous CVA. Diabetes. Renal insufficiency. New-onset hypertension. Patient feeling positive. . 10/18/17 quadriceps tendon sprain failure Previous CVA. Diabetes. renal insufficiency resolved. Clinical Quality Measures DVT/VTE Risk/Contraindication: Risk Factor Score Per Nursin RFS Level Per Nursing on Admit: 4+=Very High WILLIAN NAGEL DO Oct 18, 2017 08:34
[2017-10-18] MEDS: amLODIPine 10 MG (NORVASC) TAB PO SCH (09:20)
[2017-10-18] MEDS: CLOPIDOGREL 75 MG (PLAVIX) TABLET PO SCH (09:20)
[2017-10-18] MEDS: LOSARTAN 50 MG (COZAAR) TAB PO SCH (09:20)
[2017-10-18] MEDS: ALLOPURINOL 100 MG (ZYLOPRIM) TAB PO SCH (09:20)
[2017-10-18] MEDS: OXcarbazepine (TRILEPTAL) 300 MG TAB PO SCH ×2 (09:20→20:33)
[2017-10-18] MEDS: SENNA W/DOCUSATE (SENOKOT S) TABLET PO SCH ×2 (09:20→20:34)
--- NOTE | 2017-10-18 11:07 | Physical Therapy Daily Note ---
PT Daily Note-Current Subjective Pt. and in room. Before rx and pt. inquire regarding the team meeting scheduled for today and this CLOTH MEASURER MACHINE discussed pts. progress/lack of and the challenges of pts mobility at this time. and pt. together share his past medical history as well as recent knee pain and resultant immobility. ultimately shares that she feels pts real issue may be fear, that he has in past had many medical challenges and has overcome a lot but this seems like fear of pain or of falling perhaps. also says pt. cannot manage from wheelchair in their home and she will not accept any less than him walking. joined for Rx. States she cannot/will not lift pt. etc. Both pt. and state left TKR was going to be his next "project" as it is source of alot of pain and disfunction Pain Numeric Pain Scale: 4 Location: Right Location Body Site: Knee Pain Description: Ache Comment: pt. with significant left knee crepitus during TRFs and gait. Mental Status Patient Orientation: Person, Place, Time, Mumbles pt. has some broken thought patterns etc. clearly states one opinion several times then changes it later Transfers Functional [place] Measure 0=Not Assessed/NA 4=Minimal Assistance 1=Total Assistance 5=Supervision or Setup 2=Maximal Assistance 6=Modified [place] 3=Moderate Assistance 7=Complete IndependenceIRFPAI Quality Coding Scale 6 Independent with activity with or without an assistive device 5 Patient requires set up or clean up by helper. Patient completes activity by themselves 4 Supervision or touching assist (CGA). [place] provide cues , steadying assist 3 The helper provides less than half the effort to complete the activity 2 The helper provides more than half the effort to complete the activity 1 Dependent. The helper does all the effort to complete an activity 7 Patient refused to complete or attempt activity 9 The patient did not perform the activity before the current illness or injury 88 Not attempted due to Medical conditions or safety concerns Transfers (B, C, W/C) (FIM): 4 Scootin Rollin Sit to/from Stand: 4 Bed to/from Chair: 4 Weight Bearing Right Lower Extremity: Right Weight Bearing/Tolerated Left Lower Extremity: Left Full Weight Bearing Gait Training Does the Patient Walk?: Yes Gait (FIM): 1 Distance (FIM): 1=up to 49 ft (20x4) Gait Level of Assist: 3 Gait Persons Needed: 2 Gait Assistive Device: Walker Platform pt. ambulates with very narrowed JO ANN, tends to slide feet at times vs clear the floor. wind swept to left, audible crepitus left knee with wt bearing and attempted translation throught gait pattern. Also tends to keep R knee flexed and resists full wt bearing. Mirror for image feedback was attempted. This helped minimally with pt. standing assymetrically as well. Wheelchair Training Does the Pt Use a Wheelchair?: Yes Wheelchair (FIM): 3 Wheelchair Distance: 3=150 ft Wheelchair Level of Assist: 3 Type of Wheelchair: Manual needs instruction to use feet and needs cues to lock brakes each time etc. pt. wants to keep RLE elevated on leg rest and not use for w/c mobility Exercises Supine Ex: Heel Slides Supine Reps: 12 (mass extension with full extension and simulating wt bearing in supine) Seated Therapy Exercises: Sit to stand, Long arc quads, Hip flexion Seated Reps: 15 Standing: Marching, Weight shifts Standing Reps: 20 attempted single leg stance at parallel bars, used mirror for image feedback and discussed that gait actually requires wt shifting etc. pt. needs mod assist to facilitate weight shift and becomes frustrated and resists Assessment Current Status: Fair Progress poor progress noted for several days. Long discussion with pt.and with this CLOTH MEASURER MACHINE sharing that this team is exhausting all attempts and methods to facilitate gait and mobility. It appears possible that pt. may have some psychological issue as well as some fear and is not willing to accept less that PLOF before pt returns home PT Short Term Goals Short Term Goals Time Frame: Oct 11, 2017 Gait (FIM): 2 Distance (FIM): 0=651-33 ft Gait Distance Comment: 100 feet with FWW and armrest for RUE Gait Level of Assist: 4 Gait Assistive Device: Walker Platform Wheelchair (FIM): 3 Wheelchair distance (FIM): 3=150 ft Wheelchair Distance: 200' Wheelchair Level of Assist: 5 Stairs (FIM): 1 # of Steps: 1 Stairs Level of Assist: 4 PT Mud Car Worker Goals Long-Term Goals PT Mud Car Worker Goals Time Frame: Oct 25, 2017 Transfers (B,C,W/C) (FIM): 5 Sit to Lying (QC): 4 Lying-Sitting on Side/Bed(QC): 4 Sit to Stand (QC): 4 Rollin Roll Left to Right (QC): 4 Chair/Rfq-xu-Yizvx Xfer(QC): 4 Car Transfer (QC): 4 Does the Patient Walk: Yes Gait (FIM): 5 Distance: 200 feet Walk 10 feet (QC): 4 Walk 10ft-Uneven Surface(QC): 4 Walk 50ft with 2 Turns (QC): 4 Walk 150 ft (QC): 4 Gait Level of Assist: 5 Gait Assistive Device: Walker Platform Does the Pt use WC or Scooter?: Yes Wheelchair (FIM): 6 Distance: 200 feet Wheelchair Level of Assist: 6 Wheel 50 feet with 2 turns (QC: 6 Stairs (FIM): 2 # of Steps: 4 1 Step (curb) (QC): 4 4 Steps (QC): 4 12 Steps (QC): 88 Stairs Level Of Assist: 5 Picking up an Object (QC): 88 PT Plan Treatment/Plan Treatment Plan: Continue Plan of Care Treatment Plan: Bed Mobility, Concurrent Therapy, Education, Functional Activity Gregorio, Functional Strength, Group Therapy, Gait, Safety, Therapeutic Exercise, Transfers Treatment Duration: Oct 25, 2017 Frequency: At least 5 of 7 days/Wk (IRF) Estimated Hrs Per Day: 1.5 hours per day Patient and/or Family Agrees t: Yes Safety Risks/Education Patient Education: Gait Training, Transfer Techniques, Correct Positioning, W/ C Management, Disease Process, Safety Issues Teaching Recipient: Patient, Family, Significant Other Teaching Methods: Demonstration, Discussion Response to Teaching: Verbalize Understanding, Unable to Return Demonstration, Reinforcement Needed Time/GCodes Time In: 900 Time Out: 1000 Total Billed Treatment Time: 60 Total Billed Treatment 1,EX15m,GT25m,FA20m G Codes Necessary: ARANZA Iglesias CLOTH MEASURER MACHINE Oct 18, 2017 11:07
--- NOTE | 2017-10-18 11:52 | Occupational Ther Daily Note ---
OT Current Status-Daily Note Subjective Pt alert, sitting in w/c. Pt agreed to therapy. Pt c/o fatigue after working out with PT, enjoyed the workout. Mental Status/Objective Patient Orientation: Person, Place, Time, Situation Functional [place] Measure 0=Not Assessed/NA 4=Minimal Assistance 1=Total Assistance 5=Supervision or Setup 2=Maximal Assistance 6=Modified [place] 3=Moderate Assistance 7=Complete [place] ADL-Treatment Attempted to have pt ambulated with platform walker into bathroom. Pt unable to sit to stand, L LE would not fully extend to bear wt and melted back to sitting in w/c. Attempted 2x's. Functional [place] Measure 0=Not Assessed/NA 4=Minimal Assistance 1=Total Assistance 5=Supervision or Setup 2=Maximal Assistance 6=Modified [place] 3=Moderate Assistance 7=Complete IndependenceIRFPAI Quality Coding Scale 6 Independent with activity with or without an assistive device 5 Patient requires set up or clean up by helper. Patient completes activity by themselves 4 Supervision or touching assist (CGA). [place] provide cues , steadying assist 3 The helper provides less than half the effort to complete the activity 2 The helper provides more than half the effort to complete the activity 1 Dependent. The helper does all the effort to complete an activity 7 Patient refused to complete or attempt activity 9 The patient did not perform the activity before the current illness or injury 88 Not attempted due to Medical conditions or safety concerns Eating (FIM): 6 (Pt able to set self up and feed self with regular utensils.) Eating (QC): 6 Grooming (FIM): 6 (Sitting at sink in w/c, pt able to complete all grooming.) Oral Hygiene (QC): 6 Bathing (FIM): 4 (Using grabbars, shower bench and hand held shower pt is able to wash and rinse body. Assist needed to dry buttocks.) Bathing Location: L Arm, R Arm, L Upper Leg, R Upper Leg, L Lower Leg ( including foot), R Lower Leg (including foot), Chest, Abdomen, Buttocks, Perineal Area Shower/Bathe Self (QC): 3 Upper Body (FIM): 5 (After set up, pt able to complete upper body dressing.) Upper Body Dressing (QC): 5 Lower Body Dressing (FIM): 4 (Due to increased fatigue and pain in R knee pt unable to doff socks. Pt donned socks with sock aide. Pt able to doff pants while sitting on shower bench. Pt donned pants over feet and pulled up legs then required assist to hike over hips.) Lower Body Dressing (QC): 3 On/Off Footwear (QC): 4 (Assist to doff socks. Pt able to don shoes and socks with AE.) Shower Transfer(FIM): 4 (CGA for safety during transfer using grabbars, w/c and shower bench.) Other Treatment Completed R UE AAROM to increase ROM and decrease compensatory movements for UE tasks. After therapy, pt sitting in recliner with call light/phone in reach. present in room. Education OT Patient Education: Exercise program Teaching Recipient: Patient, Family Teaching Methods: Demonstration, Discussion Response to Teaching: Verbalize Understanding, Return Demonstration OT Short Term Goals Short Term Goals Time Frame: Oct 13, 2017 Toileting(FIM): 3 Toilet/Commode Transfer(FIM): 3 Shower Transfer(FIM): 3 Additional Short Term Goals: 1-Demonstrate ADL Tasks, 2-Verbalize Understanding , 3-ImproveStrength/Gregorio 1=Demonstrate adherence to instructed precautions during ADL tasks. 2=Patient will verbalize/demonstrate understanding of assistive devices/ modifications for ADL. 3=Patient will improve strength/tolerance for activity to enable patient to perform ADL's. OT Nursing Home Goals Door To Door Sales Representative Goals Time Frame: Oct 25, 2017 Eating (FIM): 6 Eating (QC): 6 Groomin Oral Hygiene (QC): 6 Bathing(FIM): 6 Shower/Bathe Self (QC): 6 Upper Body Dressing(FIM): 6 Upper Body Dressing (QC): 6 Lower Body Dressing(FIM): 6 Lower Body Dressing (QC): 6 On/Off Footwear (QC): 6 Toileting(FIM): 6 Toileting Hygiene (QC): 6 Transfers (B,C,W/C) (FIM): 6 Toilet/Commode Transfer(FIM): 6 Toilet/Commode Transfer (QC): 6 Shower Transfer(FIM): 6 Comprehension(FIM): 5 Expression (FIM): 5 Social Interaction(FIM): 6 Problem Solving(FIM): 5 Memory(FIM): 6 Additional Goals: 1-Demonstrate ADL Tasks, 2-Verbalize Understanding, 3- ImproveStrength/Gregorio 1=Demonstrate adherence to instructed precautions during ADL tasks. 2=Patient will verbalize/demonstrate understanding of assistive devices/ modifications for ADL. 3=Patient will improve strength/tolerance for activity to enable patient to perform ADL's. OT Education/Plan Problem List/Assessment Pt would benefit from skilled OT to increase his independence in basic self care to allow him to safely return to his home to live with his and to decrease caregiver burden. Discharge Recommendations Plan/Recommendations: Continue POC Treatment Plan/Plan of Care Patient would benefit from OT for education, treatment and training to promote independence in ADL's, mobility, safety and/or upper extremity function for ADL' s. Plan of Care: ADL Retraining, Functional Mobility, Group Exercise/Act as Ind ( education, exercise, act tolerance, problem solving, funct mobility, communication, socialization), UE Funct Exercise/Act, UE Neuromus Re-Ed/Coord Treatment Duration: Oct 25, 2017 Frequency: At least 5 of 7 days/Wk (IRF) Estimated Hrs Per Day: 1.5 hours per day (1-25 to 1.5) Agreement: Yes Rehab Potential: Good Time/GCodes Start Time: 10:45 Stop Time: 12:00 Total Time Billed (hr/min): 75 Billed Treatment Time 1 visit-ADL 4 (65 min) NM 1 (10 min) RU BURGESS Oct 18, 2017 11:52
--- NOTE | 2017-10-18 14:17 | Speech Therapy Daily Note ---
Speech Daily Progress Note Subjective Date Seen by Provider: Oct 18, 2017 Time Seen by Provider: 08:30 The patient was seated in his wheelchair upon entrance. The patient's was present at bedside. The patient greeted the clinician and was agreeable to participation in the language treatment session. Objective The patient's stated questions and concerns for the clinician regarding the patient's current status and his progression towards his goals. Due to this , the session focused on conversational fluency and word-finding strategies. Conversation/Problem Solving: The patient demonstrated fair accuracy with fluency and word finding throughout conversation, however, continuously demonstrated halts, as well as, word substitutions (which is a word-finding strategy). The patient's state she has not noticed a difference with the patient's communicative abilities or his cognitive function since his knee injury. The patient denied any questions regarding his speech pathology treatment and stated he was "ready to go home." The patient was asked to brainstorm realistic goals prior to discharge to attempt comprehension of his current level of function. The patient demonstrated difficulty with this task, relying on the therapist and the patient's to communicate important goals, such as, toileting. Assessment Assessment Current Status: Fair Progress Treatment Plan Continue Plan of Care Communication Comprehension: 4 Expression: 3 Social Cognition Social Interaction: 5 Problem Solvin Memory: 5 Speech Short Term Goals Short Term Goals Short Term Goals 1. The patient will recall and demonstrate three word-finding strategies with mild clinician verbal prompting. 2. The patient will display 80% accuracy with structured word-finding tasks with mild clinician verbal prompting. Time Frame-STG: Ten Days Speech Supervisor [place] Goals Supervisor [place] Goals 1. The patient will demonstrate improved expressive communication for increased function and safety with ADL's in the least restrictive setting. Time Frame: Two Weeks Comprehension: 5 Expression: 5 Social Interaction: 6 Problem Solvin Memory: 6 Speech-Plan Treatment Plan Speech Therapy Treatment Plan: Continue Plan of Care Continue skilled speech pathology to target functional communication and improved word-finding strategy use. Treatment Duration: Oct 18, 2017 Frequency: Modified Program (IRF) (Four to five times per day.) Estimated Hrs Per Day: .5 hour per day Rehab Potential: Good Safety Risks/Education Teaching Recipient: Patient Teaching Methods: Discussion Response to Teaching: Reinforcement Needed Education Topics Provided: Goals, Word-Finding Strategies Time Speech Therapy Time In: 08:30 Speech Therapy Time Out: 09:00 Total Billed Time: 30 Billed Treatment Time 1, ZELALEM ENRIQUEZ Oct 18, 2017 14:17
--- NOTE | 2017-10-18 14:20 | Speech Therapy Rehab Re-Cert ---
Speech Re-Certification Form Treatment Duration: One Week (Additional) Speech Therapy Treatment Plan: Continue Plan of Care # of days/week Four to Five Days per Week Visits Per Week: Four to Five Visits Per Week Minutes/Day (M-F): 30 Rehab Potential: Guarded Barriers to Learning: Prior Cognitive Deficits from previous CVA Speech Short Term Goals Short Term Goals Short Term Goals 1. The patient will recall and demonstrate three word-finding strategies with mild clinician verbal prompting. PROGRESSING 2. The patient will display 80% accuracy with structured word-finding tasks with mild clinician verbal prompting. PROGRESSING Time Frame-STG: Five Days Speech Jail Goals Gas Truck Driver Goals 1. The patient will demonstrate improved expressive communication for increased function and safety with ADL's in the least restrictive setting. Time Frame: One Week Comprehension: 5 Expression: 5 Social Interaction: 6 Problem Solvin Memory: 6 ZELALEM JOY Oct 18, 2017 14:20
--- NOTE | 2017-10-18 14:34 | Physical Therapy Daily Note ---
PT Daily Note-Current Subjective Pts continues present and accompanies pt. to Rx. at one point called the lead trainer that the pt. was with when this incident happened that rendered pt with such pain in right knee. states they states they did not feel it was a CVA, no indications of that however the would like to rule this out with testing. Pain Numeric Pain Scale: 4 Location: Right Location Body Site: Knee Pain Description: Ache Mental Status communication difficulties, laughs this date and states " i may say yes to you and really mean no" shakes his head and laughs Transfers Functional [place] Measure 0=Not Assessed/NA 4=Minimal Assistance 1=Total Assistance 5=Supervision or Setup 2=Maximal Assistance 6=Modified [place] 3=Moderate Assistance 7=Complete IndependenceIRFPAI Quality Coding Scale 6 Independent with activity with or without an assistive device 5 Patient requires set up or clean up by helper. Patient completes activity by themselves 4 Supervision or touching assist (CGA). [place] provide cues , steadying assist 3 The helper provides less than half the effort to complete the activity 2 The helper provides more than half the effort to complete the activity 1 Dependent. The helper does all the effort to complete an activity 7 Patient refused to complete or attempt activity 9 The patient did not perform the activity before the current illness or injury 88 Not attempted due to Medical conditions or safety concerns sit to stand min to mod assist Weight Bearing Right Lower Extremity: Right Weight Bearing/Tolerated Left Lower Extremity: Left Full Weight Bearing Gait Training Does the Patient Walk?: Yes pt. ambulated with platf walker 13 feet and states he cant go any further, with chair behind pt. pt also attempted to walk at rail in [place] and w/c to f/u, did not really take one step. c/o pain limits him in R knee. Wheelchair Training Type of Wheelchair: Manual w/c mobility 100ft SBA Exercises NuStep Minutes: 10 NuStep Workload: 8 Treatments leg presses at Nustep 15 reps Assessment Current Status: Fair Progress pain and adducting tone RLE inhibits gait and function PT Short Term Goals Short Term Goals Time Frame: Oct 11, 2017 Gait (FIM): 2 Distance (FIM): 0=487-67 ft Gait Distance Comment: 100 feet with FWW and armrest for RUE Gait Level of Assist: 4 Gait Assistive Device: Walker Platform Wheelchair (FIM): 3 Wheelchair distance (FIM): 3=150 ft Wheelchair Distance: 200' Wheelchair Level of Assist: 5 Stairs (FIM): 1 # of Steps: 1 Stairs Level of Assist: 4 PT Senior Living Goals Senior Living Goals PT Thread Drawer Goals Time Frame: Oct 25, 2017 Transfers (B,C,W/C) (FIM): 5 Sit to Lying (QC): 4 Lying-Sitting on Side/Bed(QC): 4 Sit to Stand (QC): 4 Rollin Roll Left to Right (QC): 4 Chair/[id number]-Xcqie Xfer(QC): 4 Car Transfer (QC): 4 Does the Patient Walk: Yes Gait (FIM): 5 Distance: 200 feet Walk 10 feet (QC): 4 Walk 10ft-Uneven Surface(QC): 4 Walk 50ft with 2 Turns (QC): 4 Walk 150 ft (QC): 4 Gait Level of Assist: 5 Gait Assistive Device: Walker Platform Does the Pt use WC or Scooter?: Yes Wheelchair (FIM): 6 Distance: 200 feet Wheelchair Level of Assist: 6 Wheel 50 feet with 2 turns (QC: 6 Stairs (FIM): 2 # of Steps: 4 1 Step (curb) (QC): 4 4 Steps (QC): 4 12 Steps (QC): 88 Stairs Level Of Assist: 5 Picking up an Object (QC): 88 PT Plan Treatment/Plan Treatment Plan: Continue Plan of Care Treatment Plan: Bed Mobility, Concurrent Therapy, Education, Functional Activity Gregorio, Functional Strength, Group Therapy, Gait, Safety, Therapeutic Exercise, Transfers Treatment Duration: Oct 25, 2017 Frequency: At least 5 of 7 days/Wk (IRF) Estimated Hrs Per Day: 1.5 hours per day Patient and/or Family Agrees t: Yes Safety Risks/Education Patient Education: Gait Training, Transfer Techniques, Correct Positioning, W/ C Management, Disease Process, Safety Issues Teaching Recipient: Patient Teaching Methods: Demonstration, Discussion Response to Teaching: Verbalize Understanding, Return Demonstration, Reinforcement Needed Time/GCodes Time In: 1300 Time Out: 1345 Total Billed Treatment Time: 45 Total Billed Treatment 1,EX15,WC15,GT15 G Codes Necessary: No ARANZA GEIGER INK MAKER Oct 18, 2017 14:34
[2017-10-18 16:54] VITALS: BP 155/78
--- NOTE | 2017-10-18 18:12 | Diagnostic Imaging Report ---
PROCEDURE: CT head without contrast. TECHNIQUE: Multiple contiguous axial images were obtained through the brain without the use of intravenous contrast. INDICATION: Increased right-sided weakness status post fall with history of left frontal stroke. COMPARISON: None. FINDINGS: The ventricles and cortical sulci are diffusely prominent. There is ex vacuo dilatation of the left lateral ventricle. There is a large region of encephalomalacia involving the left frontal lobe. No acute intracranial hemorrhage is seen. There is no midline shift or mass effect. There is mild asymmetry of the navneet and medulla, which may be related to the old infarct. The calvarium appears intact. IMPRESSION: 1. Large area of encephalomalacia in the left frontal lobe from old infarct. No CT evidence of acute territorial ischemia is seen, although MRI is more sensitive for evaluation. 2. No acute hemorrhage or midline shift. Dictated by: Dictated on workstation # [id number]
--- NOTE | 2017-10-18 20:13 | CONSULTATION REPORT ---
DATE OF SERVICE: ROOM: 227. CHIEF COMPLAINT: Right knee pain with leg weakness. He is currently admitted to Dr. Hendrix for rehabilitation. HISTORY OF PRESENT ILLNESS: This 67-year-old male has a three week history of right lower extremity weakness with mild knee pain. The patient is roughly 10 years status post a right total knee arthroplasty and had done well following surgery and had stayed very active with exercise and strengthening activities. The patient, however, did begin to develop acute weakness and difficulty with ambulation and was admitted to the rehab facility for therapy and strengthening. He did have a past history in 2002 of a CVA, which had resulted in right-sided weakness and the patient still suffers from right upper extremity weakness. The patient and his reports that he has been unable to straight leg raise, but has yielded a mild amount of improvement functionally with the recent physical therapy over the last one to two weeks. The patient otherwise requires significant assistance for ambulation and transfers. He has been utilizing a knee immobilizer and walker as well. PAST MEDICAL HISTORY: Includes left CVA with right hemiparesis, hypertension, seizure disorder, type 2 diabetes and ankylosing spondylitis. ALLERGIES: He has an allergy to PENICILLIN. FAMILY HISTORY: Otherwise, noncontributory. PAST SURGICAL HISTORY: Includes right total knee arthroplasty. SOCIAL HISTORY: Include, he lives with his spouse and is retired. REVIEW OF SYSTEMS: At this point is negative for chest pain, dysuria or shortness of breath. CURRENT MEDICATIONS: Include allopurinol, Plavix, Cozaar, amlodipine, Levemir, Humalog, Tagamet, Lamictal, losartan, Trileptal, Remicade, Hytrin, ibuprofen, Percocet. PHYSICAL EXAMINATION: GENERAL: Reveals a healthy nonobese white male, well nourished and in no acute distress. He appears alert and oriented. HEAD, EYES, EARS, NOSE AND THROAT: Appears normal. NECK: Supple throughout. HEART: Revealed regular rate and rhythm with no murmurs, gallops or thrills noted. CHEST AND ABDOMEN: Otherwise, noncontributory. EXTREMITIES: Right lower extremity musculoskeletal examination shows a significant quad atrophy. The patient is unable to actively extend the right knee while seated, however, with passive extension, the patient is able to hold a straight leg raise in place. He has mild tenderness diffusely throughout the quad tendon and patellar tendon. Negative patellar apprehension maneuvers otherwise noted. He has a 1+ Maria G with firm endpoint, 1+ anterior drawer with firm endpoint. Negative posterior drawer. No varus or valgus laxity is noted. Well-healed midline incision is noted along the right knee with no warmth, erythema or drainage noted. He does have perhaps mild soft tissue swelling throughout the extensor mechanism, but no obvious effusion was noted on exam. Range of motion was 0/0/100. He did have mild pain reproduced with passive flexion. Review of x-rays, three views of the right knee from [address] dated 10/17/2017, show no evidence of fracture or dislocation, total knee components appear well maintained with no evidence of cement mantle disruption noted radiographically. No other bony abnormalities are noted radiographically. 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 PLAN: This was discussed with the patient and his along with treatment options including continued physical therapy. I did recommend that they consider a referral for further evaluation by a total joint surgeon; local resources were discussed for this. I have recommended that he continue assistive devices as needed and continue working on range of motion and quad strengthening exercises and to progress ambulatory activities as his symptoms allow the possibility of an underlying neurologic issue was discussed; otherwise, I have nothing and orthopedic to offer. Dr. Gregorio is informed of the consult and the exam findings. We will otherwise plan to recheck the patient as needed. Thank you for the consult. Job ID: [id number] DocumentID: [id number] Dictated Date: 10/18/2017 13:42:32 Plant Maintenance Manager Date: 10/18/2017 14:27:04 Dictated By: KOURTNEY HILL
[2017-10-18] MEDS: TERAZOSIN 2 MG (HYTRIN) CAP PO SCH (20:33)
[2017-10-18] MEDS: FAMOTIDINE 20 MG (PEPCID) TABLET PO SCH (20:33)
[2017-10-18] MEDS: inSUlin DETERMIR 1 UNIT/0.01 ML (LEVEMIR) CHARGE PER UNIT SQ SCH (20:34)
[2017-10-19 05:28] VITALS: BP 165/78
[2017-10-19] MEDS: inSUlin ASPART (NovoLOG) 1 UNIT/0.01 ML (CHARGE PER UNIT) SC SCH ×4 (05:32→20:19)
[2017-10-19] MEDS: oxyCODONE/APAP 5/325MG (PERCOCET 5) TABLET PO PRN ×4 (07:14→23:00)
[2017-10-19 08:26] VITALS: BP 179/87
--- NOTE | 2017-10-19 08:31 | Progress Note (SOAP) ---
Subjective Time Seen by Provider: 08:30 Subjective/Events-last exam common quadriceps tendon sprain. Diabetes. Hypertension. patient pleasant. Patient feels he is improving Objective Exam Vital Signs Date Time Temp Pulse Resp B/P (MAP) Pulse Ox O2 Delivery O2 Flow Rate FiO2 10/19/17 05:28 98.2 65 20 165/78 (107) 97 Room Air 10/18/17 20:40 Room Air 10/18/17 16:54 97.8 62 20 155/78 (103) 98 Room Air 10/18/17 08:32 Room Air I & O 10/19/17 07:00 Intake Total 1490 ml Output Total 2075 ml Balance -585 ml Capillary Refill : Less Than 3 Seconds General Appearance: No Apparent Distress Results Lab Laboratory Tests 10/18/17 11:41: Glucometer 230H 10/18/17 16:39: Glucometer 236H 10/18/17 20:15: Glucometer 224H 10/19/17 05:31: Glucometer 96 Assessment/Plan Assessment/Plan Assess & Plan/Chief Complaint common quadriceps tendon sprain. Previous CVA. Diabetes. Renal insufficiency. . 10/05/17 , Quadriceps tendon sprain. Previous CVA. Diabetes. Renal insufficiency. sugars are running high. increase Levemir. . 10/06/17 Quadriceps tendon sprain. Previous CVA. Diabetes under good control renal insufficiency. Patient doing better. . 10/09/17. , Quadriceps tendon sprain. Previous CVA. Diabetes. Renal insufficiency Patient getting around better and feeling better about himself. . , Quadriceps tendon sprain. *CVA. 10/10/17. patient slowly improving. . 10/11/17. Previous CVA. And quadriceps tendon sprain. Renal insufficiency. Diabetes. . . 10/12/17. , Quadriceps tendon sprain. Previous CVA. Renal insufficiency. Diabetes. Patient a work in progress. . 10/13/17. Common quadriceps tendon strain. Previous CVA. Diabetes. Renal insufficiency patient working hard to improve himself. . 10/16/17. , Quadriceps tendon sprain. Previous CVA. Diabetes. Renal insufficiency. Blood pressure elevated today . 10/17/17. Quadriceps tendon sprain. Previous CVA. Diabetes. Renal insufficiency. New-onset hypertension. Patient feeling positive. . 10/18/17 quadriceps tendon sprain failure Previous CVA. Diabetes. renal insufficiency resolved. . 10/19/17. Quadriceps tendon sprain. Previous CVA. Diabetes. Hypertension. Clinical Quality Measures DVT/VTE Risk/Contraindication: Risk Factor Score Per Nursin RFS Level Per Nursing on Admit: 4+=Very High WILLIAN NAGEL DO Oct 19, 2017 08:31
[2017-10-19] MEDS: CLOPIDOGREL 75 MG (PLAVIX) TABLET PO SCH (08:34)
[2017-10-19] MEDS: OXcarbazepine (TRILEPTAL) 300 MG TAB PO SCH ×2 (08:34→20:19)
[2017-10-19] MEDS: LOSARTAN 50 MG (COZAAR) TAB PO SCH (08:34)
[2017-10-19] MEDS: ALLOPURINOL 100 MG (ZYLOPRIM) TAB PO SCH (08:34)
[2017-10-19] MEDS: amLODIPine 10 MG (NORVASC) TAB PO SCH (08:34)
[2017-10-19] MEDS: SENNA W/DOCUSATE (SENOKOT S) TABLET PO SCH ×2 (08:34→20:20)
[2017-10-19 09:56] VITALS: BP 156/84
[2017-10-19] MEDS: lisINopril 10 MG (PRINIVIL) TAB PO SCH (09:58)
--- NOTE | 2017-10-19 10:02 | Physical Therapy Daily Note ---
PT Daily Note-Current Subjective Pt sitting in [facility] finishing up with Nurse upon arrival. Pt agrees to PT. Pain Numeric Pain Scale: 8 Location: Right Location Body Site: Knee Pain Description: Ache, Tightness Comment: Pt exhibits popping & grinding during weight shifting. Mental Status Patient Orientation: Person, Place, Mumbles Transfers Functional [place] Measure 0=Not Assessed/NA 4=Minimal Assistance 1=Total Assistance 5=Supervision or Setup 2=Maximal Assistance 6=Modified [place] 3=Moderate Assistance 7=Complete IndependenceIRFPAI Quality Coding Scale 6 Independent with activity with or without an assistive device 5 Patient requires set up or clean up by helper. Patient completes activity by themselves 4 Supervision or touching assist (CGA). [place] provide cues , steadying assist 3 The helper provides less than half the effort to complete the activity 2 The helper provides more than half the effort to complete the activity 1 Dependent. The helper does all the effort to complete an activity 7 Patient refused to complete or attempt activity 9 The patient did not perform the activity before the current illness or injury 88 Not attempted due to Medical conditions or safety concerns Scootin Supine to/from Sit: 4 Sit to/from Stand: 5 Sit to Lying (QC): 4 Weight Bearing Right Lower Extremity: Right Weight Bearing/Tolerated Left Lower Extremity: Left Full Weight Bearing Gait Training Does the Patient Walk?: Yes Distance (FIM): 1=up to 49 ft Distance: 10' Walk 10 feet (QC): 3 Gait Level of Assist: 3 Gait Assistive Device: Walker Sonny OT requested pt to try Sonny Walker to allow pt to keep UE at a more comfortable position. Wheelchair Training Does the Pt Use a Wheelchair?: Yes Wheelchair Distance: 3=150 ft Distance: 150' Wheelchair Level of Assist: 5 Wheel 50 ft with 2 turns (QC): 5 Wheel 150 ft (QC): 5 Type of Wheelchair: Manual Exercises Supine Ex: Ankle pumps, Quad Set, Heel Slides, Hip abd/add Supine Reps: 15 Seated Therapy Exercises: Ankle pumps, Long arc quads, Hip flexion, Kicking activity Seated Reps: 15 Treatments Pt propels [facility] in hallway at [facility]. Pt transfers from [facility] to EOM at [facility] using SPT. Pt completes Supine Ex on Therapy mat with sharp increase in R knee pain with extension. Pt transfers from Supine to EOM at [facility]. Pt completes Seated Ex at EOM. Pt stands from EOM using Sonny Walker at SBA. Pt ambulates in Therapy Gym to //bars at Mod A using Sonny Walker. Pt completes Weight Shifting at //bars to prepare for more walking and pt is unable Single Leg Stance on RLE due to weakness. Pt returns to [facility] and propels back to room to rest at end of tx with all needs met. Assessment Current Status: Good Progress Pt continues to reports sharp increase in pain in R knee especially with Extension EX. in Supine position. PT Short Term Goals Short Term Goals Time Frame: Oct 11, 2017 Gait (FIM): 2 Distance (FIM): 6=383-53 ft Gait Distance Comment: 100 feet with FWW and armrest for RUE Gait Level of Assist: 4 Gait Assistive Device: Walker Platform Wheelchair (FIM): 3 Wheelchair distance (FIM): 3=150 ft Wheelchair Distance: 200' Wheelchair Level of Assist: 5 Stairs (FIM): 1 # of Steps: 1 Stairs Level of Assist: 4 PT Wares Sorter Goals Senior Care Goals PT Wares Sorter Goals Time Frame: Oct 25, 2017 Transfers (B,C,W/C) (FIM): 5 Sit to Lying (QC): 4 Lying-Sitting on Side/Bed(QC): 4 Sit to Stand (QC): 4 Rollin Roll Left to Right (QC): 4 Chair/Sia-dy-Tqafy Xfer(QC): 4 Car Transfer (QC): 4 Does the Patient Walk: Yes Gait (FIM): 5 Distance: 200 feet Walk 10 feet (QC): 4 Walk 10ft-Uneven Surface(QC): 4 Walk 50ft with 2 Turns (QC): 4 Walk 150 ft (QC): 4 Gait Level of Assist: 5 Gait Assistive Device: Walker Platform Does the Pt use WC or Scooter?: Yes Wheelchair (FIM): 6 Distance: 200 feet Wheelchair Level of Assist: 6 Wheel 50 feet with 2 turns (QC: 6 Stairs (FIM): 2 # of Steps: 4 1 Step (curb) (QC): 4 4 Steps (QC): 4 12 Steps (QC): 88 Stairs Level Of Assist: 5 Picking up an Object (QC): 88 PT Plan Problem List Problem List: Activity Tolerance, Functional Strength, Safety, Balance, Gait Treatment/Plan Treatment Plan: Continue Plan of Care Treatment Plan: Bed Mobility, Concurrent Therapy, Education, Functional Activity Gregorio, Functional Strength, Group Therapy, Gait, Safety, Therapeutic Exercise, Transfers Treatment Duration: Oct 25, 2017 Frequency: At least 5 of 7 days/Wk (IRF) Estimated Hrs Per Day: 1.5 hours per day Patient and/or Family Agrees t: Yes Safety Risks/Education Patient Education: Gait Training, Transfer Techniques, Correct Positioning, Safety Issues Teaching Recipient: Patient Teaching Methods: Discussion Response to Teaching: Verbalize Understanding Time/GCodes Time In: 830 Time Out: 930 Total Billed Treatment Time: 60 Total Billed Treatment 1, WCH (15m), GT (15m) & EX x2 (30m) KYRIE LLOYD PTA Oct 19, 2017 10:02
--- NOTE | 2017-10-19 11:03 | Physical Therapy Daily Note ---
PT Daily Note-Current Subjective Pt is sitting in [facility] pre tx and agrees to PT with no reports of pain. Pain Numeric Pain Scale: 0-No Pain Appearance Pt is sitting in [facility] at bedside post tx with nurse call, all needs met. Mental Status Patient Orientation: Person Transfers Functional [place] Measure 0=Not Assessed/NA 4=Minimal Assistance 1=Total Assistance 5=Supervision or Setup 2=Maximal Assistance 6=Modified [place] 3=Moderate Assistance 7=Complete IndependenceIRFPAI Quality Coding Scale 6 Independent with activity with or without an assistive device 5 Patient requires set up or clean up by helper. Patient completes activity by themselves 4 Supervision or touching assist (CGA). [place] provide cues , steadying assist 3 The helper provides less than half the effort to complete the activity 2 The helper provides more than half the effort to complete the activity 1 Dependent. The helper does all the effort to complete an activity 7 Patient refused to complete or attempt activity 9 The patient did not perform the activity before the current illness or injury 88 Not attempted due to Medical conditions or safety concerns Transfers (B, C, W/C) (FIM): 4 Scootin Sit to/from Stand: 4 CGA needed for sit to stand for safety and verbal cues for hand placement and safety. Weight Bearing Right Lower Extremity: Right Weight Bearing/Tolerated Left Lower Extremity: Left Full Weight Bearing Gait Training Does the Patient Walk?: Yes Gait (FIM): 2 Distance: 120 feet x1 Gait Level of Assist: 4 Gait Persons Needed: 1 Gait Assistive Device: Walker Sonny Pt leans to the right in order to swing LLE. CGA needed for safety. Uses left AFO. Wheelchair Training Does the Pt Use a Wheelchair?: Yes Wheelchair (FIM): 6 Distance: 120 feet x1 Wheelchair Level of Assist: 6 Type of Wheelchair: Manual Stair Training Stair Training: Handrails/: 1 handrail Stairs (FIM): 1 #of Steps: 1 Stairs: Pattern: Step to Level of Assist: 3 Pt requires help lifting LLE and preventing adduction of the LLE while walking up and down 1 step. Patient went went up and down 1 step x4. Exercises Seated Therapy Exercises: Sit to stand (10 x2) NuStep Minutes: 15 NuStep Workload: 5 Treatments Pt performed gait training, LE exercises, step training, and [facility] mobility. Assessment Current Status: Fair Progress Patient improving with transfers. He seemed to have a little more increased tone in his left leg and difficulty with stairs and ambulation in general. PT Short Term Goals Short Term Goals Time Frame: Oct 11, 2017 Gait (FIM): 2 Distance (FIM): 8=933-01 ft Gait Distance Comment: 100 feet with FWW and armrest for RUE Gait Level of Assist: 4 Gait Assistive Device: Walker Platform Wheelchair (FIM): 3 Wheelchair distance (FIM): 3=150 ft Wheelchair Distance: 200' Wheelchair Level of Assist: 5 Stairs (FIM): 1 # of Steps: 1 Stairs Level of Assist: 4 PT Barkeeper Goals Senior Living Goals PT Senior Living Goals Time Frame: Oct 25, 2017 Transfers (B,C,W/C) (FIM): 5 Sit to Lying (QC): 4 Lying-Sitting on Side/Bed(QC): 4 Sit to Stand (QC): 4 Rollin Roll Left to Right (QC): 4 Chair/Aqh-xq-Ovdta Xfer(QC): 4 Car Transfer (QC): 4 Does the Patient Walk: Yes Gait (FIM): 5 Distance: 200 feet Walk 10 feet (QC): 4 Walk 10ft-Uneven Surface(QC): 4 Walk 50ft with 2 Turns (QC): 4 Walk 150 ft (QC): 4 Gait Level of Assist: 5 Gait Assistive Device: Walker Platform Does the Pt use WC or Scooter?: Yes Wheelchair (FIM): 6 Distance: 200 feet Wheelchair Level of Assist: 6 Wheel 50 feet with 2 turns (QC: 6 Stairs (FIM): 2 # of Steps: 4 1 Step (curb) (QC): 4 4 Steps (QC): 4 12 Steps (QC): 88 Stairs Level Of Assist: 5 Picking up an Object (QC): 88 PT Plan Problem List Problem List: Activity Tolerance, Functional Strength, Safety, Balance, Gait, Transfer, Bed Mobility, ROM Treatment/Plan Treatment Plan: Continue Plan of Care Treatment Plan: Bed Mobility, Education, Functional Activity Gregorio, Functional Strength, Group Therapy, Gait, Safety, Therapeutic Exercise, Transfers Treatment Duration: Oct 25, 2017 Frequency: At least 5 of 7 days/Wk (IRF) Estimated Hrs Per Day: 1.5 hours per day Patient and/or Family Agrees t: Yes Safety Risks/Education Patient Education: Gait Training, Transfer Techniques, Steps, Correct Positioning, Safety Issues Teaching Recipient: Patient Teaching Methods: Demonstration, Discussion Response to Teaching: Reinforcement Needed Time/GCodes Time In: 1000 Time Out: 1100 Total Billed Treatment Time: 60 Total Billed Treatment 1 visit 30 min GT 15 min EX 15 min JACKIE MAHAJAN PT Oct 19, 2017 11:03
--- NOTE | 2017-10-19 13:24 | Occupational Ther Daily Note ---
OT Current Status-Daily Note Subjective Pt seen in room, up in w/c, agreeable to OT. Pain initially 6/10 and increased to 8/10 during ADLs and prior to pain meds from nursing. Not described Appearance Alert, cooperative Mental Status/Objective Functional [place] Measure 0=Not Assessed/NA 4=Minimal Assistance 1=Total Assistance 5=Supervision or Setup 2=Maximal Assistance 6=Modified [place] 3=Moderate Assistance 7=Complete [place] ADL-Treatment Pt completed all ADLs at either w/c or bed level and did stand pivot transfers so didn't stand on R leg for any length of time during tx. Stand pivot transfer to bed and back to w/c, using rail on side of bed, with SBA. Pt used urinal and reported that he used tall toilet last night. Pt education and discussion about self care needs when he goes home. His greatest concern is being able to get into bathroom and toilet and he is not sure if w/c will go through bathroom doorways at home. Functional [place] Measure 0=Not Assessed/NA 4=Minimal Assistance 1=Total Assistance 5=Supervision or Setup 2=Maximal Assistance 6=Modified [place] 3=Moderate Assistance 7=Complete IndependenceIRFPAI Quality Coding Scale 6 Independent with activity with or without an assistive device 5 Patient requires set up or clean up by helper. Patient completes activity by themselves 4 Supervision or touching assist (CGA). [place] provide cues , steadying assist 3 The helper provides less than half the effort to complete the activity 2 The helper provides more than half the effort to complete the activity 1 Dependent. The helper does all the effort to complete an activity 7 Patient refused to complete or attempt activity 9 The patient did not perform the activity before the current illness or injury 88 Not attempted due to Medical conditions or safety concerns Grooming (FIM): 6 (Shaved, brushed teeth, washed face and hands, at sink. ) Bathing (FIM): 5 (Setup at both sink and bedside. pt washed and dried all parts except back, washing upper body at sink and lower body in bed. He leaned to R side to wash bottom and had difficulty getting R leg up to wash it. ) Upper Body (FIM): 5 (Doffed and donned shirt with setup) Lower Body Dressing (FIM): 4 (Needed just a little hlep with R shoe, evel with shoe horn. Pt took socks off with dressing stick and donned them with sock aid. Able to get pants on over feet and bridged in bed to pull pants up over hips. ) Other Treatment Pt took himself most of the way to gym, per w/c. he did 10 minutes L UE exercise on arm bike set at 25-30W resistance, with only one brief break. To strengthen arms to help with transfers and standing during ADLs. Pt transported back to room and transferred stand pivot transfer to left side to recliner. All needs met. Education OT Patient Education: Progress toward Goal/Update tx plan, Purpose of tx/ functional activities, Safety issues, Transfer techniques Teaching Recipient: Patient Teaching Methods: Discussion Response to Teaching: Verbalize Understanding, Return Demonstration, Reinforcement Needed OT Short Term Goals Short Term Goals Time Frame: Oct 13, 2017 Toileting(FIM): 3 Toilet/Commode Transfer(FIM): 3 Shower Transfer(FIM): 3 Additional Short Term Goals: 1-Demonstrate ADL Tasks, 2-Verbalize Understanding , 3-ImproveStrength/Gregorio 1=Demonstrate adherence to instructed precautions during ADL tasks. 2=Patient will verbalize/demonstrate understanding of assistive devices/ modifications for ADL. 3=Patient will improve strength/tolerance for activity to enable patient to perform ADL's. OT Supervisor Cook Room Goals Retirement Goals Time Frame: Oct 25, 2017 Eating (FIM): 6 Eating (QC): 6 Groomin Oral Hygiene (QC): 6 Bathing(FIM): 6 Shower/Bathe Self (QC): 6 Upper Body Dressing(FIM): 6 Upper Body Dressing (QC): 6 Lower Body Dressing(FIM): 6 Lower Body Dressing (QC): 6 On/Off Footwear (QC): 6 Toileting(FIM): 6 Toileting Hygiene (QC): 6 Transfers (B,C,W/C) (FIM): 6 Toilet/Commode Transfer(FIM): 6 Toilet/Commode Transfer (QC): 6 Shower Transfer(FIM): 6 Comprehension(FIM): 5 Expression (FIM): 5 Social Interaction(FIM): 6 Problem Solving(FIM): 5 Memory(FIM): 6 Additional Goals: 1-Demonstrate ADL Tasks, 2-Verbalize Understanding, 3- ImproveStrength/Gregorio 1=Demonstrate adherence to instructed precautions during ADL tasks. 2=Patient will verbalize/demonstrate understanding of assistive devices/ modifications for ADL. 3=Patient will improve strength/tolerance for activity to enable patient to perform ADL's. OT Education/Plan Problem List/Assessment Pt would benefit from skilled OT to increase his independence in basic self care to allow him to safely return to his home to live with his and to decrease caregiver burden. Discharge Recommendations Plan/Recommendations: Continue POC Treatment Plan/Plan of Care Patient would benefit from OT for education, treatment and training to promote independence in ADL's, mobility, safety and/or upper extremity function for ADL' s. Plan of Care: ADL Retraining, Functional Mobility, Group Exercise/Act as Ind ( education, exercise, act tolerance, problem solving, funct mobility, communication, socialization), UE Funct Exercise/Act, UE Neuromus Re-Ed/Coord Treatment Duration: Oct 25, 2017 Frequency: At least 5 of 7 days/Wk (IRF) Estimated Hrs Per Day: 1.5 hours per day (1-25 to 1.5) Agreement: Yes Rehab Potential: Guarded Time/GCodes Start Time: 10:15 Stop Time: 11:30 Total Time Billed (hr/min): 75 Billed Treatment Time visit, 60 minutes ADL, 15 minutes exercise TERE DEL CASTILLO OT Oct 19, 2017 13:23
--- NOTE | 2017-10-19 13:51 | Physical Therapy Daily Note ---
PT Daily Note-Current Subjective Pt sitting in [facility] in room upon arrival. Pt agrees to PT. Pain Numeric Pain Scale: 5-Moderate Pain Location: Right Location Body Site: Knee Pain Description: Ache, Tightness Mental Status Patient Orientation: Person, Place, Mumbles Transfers Functional [place] Measure 0=Not Assessed/NA 4=Minimal Assistance 1=Total Assistance 5=Supervision or Setup 2=Maximal Assistance 6=Modified [place] 3=Moderate Assistance 7=Complete IndependenceIRFPAI Quality Coding Scale 6 Independent with activity with or without an assistive device 5 Patient requires set up or clean up by helper. Patient completes activity by themselves 4 Supervision or touching assist (CGA). [place] provide cues , steadying assist 3 The helper provides less than half the effort to complete the activity 2 The helper provides more than half the effort to complete the activity 1 Dependent. The helper does all the effort to complete an activity 7 Patient refused to complete or attempt activity 9 The patient did not perform the activity before the current illness or injury 88 Not attempted due to Medical conditions or safety concerns Weight Bearing Right Lower Extremity: Right Weight Bearing/Tolerated Left Lower Extremity: Left Full Weight Bearing Wheelchair Training Does the Pt Use a Wheelchair?: Yes Wheelchair Distance: 4=512-30 ft Distance: 100' Wheelchair Level of Assist: 5 Wheel 50 ft with 2 turns (QC): 5 Type of Wheelchair: Manual Exercises Seated Therapy Exercises: Ankle pumps, Long arc quads, Hip flexion, Kicking activity Seated Reps: 15 Treatments Pt propels [facility] to Therapy Commons area at [facility]. Pt completes Seated Ex in [facility] then wants to stay in Commons area after tx. Nursing notified. Assessment Current Status: Good Progress Pt is improving with strength but still reports weakness and pain in R knee. PT Short Term Goals Short Term Goals Time Frame: Oct 11, 2017 Gait (FIM): 2 Distance (FIM): 8=638-58 ft Gait Distance Comment: 100 feet with FWW and armrest for RUE Gait Level of Assist: 4 Gait Assistive Device: Walker Platform Wheelchair (FIM): 3 Wheelchair distance (FIM): 3=150 ft Wheelchair Distance: 120 feet x1 Wheelchair Level of Assist: 5 Stairs (FIM): 1 # of Steps: 1 Stairs Level of Assist: 4 PT Long-Term Goals Interpersonal Communications Professor Goals PT Long-Term Goals Time Frame: Oct 25, 2017 Transfers (B,C,W/C) (FIM): 5 Sit to Lying (QC): 4 Lying-Sitting on Side/Bed(QC): 4 Sit to Stand (QC): 4 Rollin Roll Left to Right (QC): 4 Chair/Lrn-vr-Ciqzy Xfer(QC): 4 Car Transfer (QC): 4 Does the Patient Walk: Yes Gait (FIM): 5 Distance: 200 feet Walk 10 feet (QC): 4 Walk 10ft-Uneven Surface(QC): 4 Walk 50ft with 2 Turns (QC): 4 Walk 150 ft (QC): 4 Gait Level of Assist: 5 Gait Assistive Device: Walker Platform Does the Pt use WC or Scooter?: Yes Wheelchair (FIM): 6 Distance: 200 feet Wheelchair Level of Assist: 6 Wheel 50 feet with 2 turns (QC: 6 Stairs (FIM): 2 # of Steps: 4 1 Step (curb) (QC): 4 4 Steps (QC): 4 12 Steps (QC): 88 Stairs Level Of Assist: 5 Picking up an Object (QC): 88 PT Plan Problem List Problem List: Activity Tolerance, Functional Strength, Safety, Balance, Gait Treatment/Plan Treatment Plan: Continue Plan of Care Treatment Plan: Bed Mobility, Education, Functional Activity Gregorio, Functional Strength, Group Therapy, Gait, Safety, Therapeutic Exercise, Transfers Treatment Duration: Oct 25, 2017 Frequency: At least 5 of 7 days/Wk (IRF) Estimated Hrs Per Day: 1.5 hours per day Patient and/or Family Agrees t: Yes Safety Risks/Education Patient Education: Transfer Techniques, Correct Positioning, Safety Issues Teaching Recipient: Patient Teaching Methods: Discussion Response to Teaching: Verbalize Understanding Time/GCodes Time In: 1330 Time Out: 1345 Total Billed Treatment Time: 15 Total Billed Treatment 1, EX (15m) KYRIE LLOYD RECREATION ATTENDANT Oct 19, 2017 13:51
--- NOTE | 2017-10-19 15:09 | PM & R (SOAP) Progress Note ---
Subjective Time Seen by Provider: 08:30 Subjective/Events-last exam Patient was seen in his room this AM and then again in Gym Reviewed findings with patient re CT head and Ortho consult and recs reviewed thes issues again with patient and his and daughter at family Conference held in the patients room at 1130 The patients decline in function is most likelya combination of rt knee injury and late effects of storke with RT HP Progress with therapies slow Patient may have day pass this weekend to see how patient would manage at home while his is at work.Patient and his family agreeable to planCT Head shows no evidence of repeat stroke Xray Rt Knee shows TK prosthesis in good alignment.Patient still has some Knee pain with WT bearing which slows his progress.He can Planatar and dorsiflex at rt ank;le but unable to extend rt knee against gravity. Review of Systems Musculoskeletal: leg pain Neurological: Weakness Objective Exam Last Set of Vital Signs Vital Signs Date Time Temp Pulse Resp B/P (MAP) Pulse Ox O2 Delivery O2 Flow Rate FiO2 10/19/17 09:56 80 156/84 (108) 10/19/17 08:34 Room Air 10/19/17 08:26 97.8 20 98 Capillary Refill : Less Than 3 Seconds I&O Intake and Output 10/19/17 00:00 Intake Total 1400 ml Output Total 1875 ml Balance -475 ml Intake Oral 1400 ml Output Urine Total 1875 ml # Bowel Movements 1 General: Alert, Oriented X3, Cooperative, No Acute Distress HEENT: Atraumatic, PERRLA, EOMI, Mucous Memb Moist/[place], Other (mild expressive aphasia) Neck: Supple, No JVD Lungs: Clear to Auscultation Heart: Regular Rate Abdomen: Normal Bowel Sounds, Soft, No Tenderness Extremities: No Edema Neuro: Other (as per above) Results Lab Laboratory Tests 10/16/17 16:05: Glucometer 222H 10/16/17 20:20: Glucometer 253H 10/17/17 04:16: Glucometer 125H 10/17/17 11:17: Glucometer 171H 10/17/17 16:04: Glucometer 204H 10/17/17 20:11: Glucometer 197H 10/18/17 04:59: Glucometer 96 10/18/17 06:45: Sodium Level 136, Potassium Level 4.2, Chloride Level 105, Carbon Dioxide Level 21, Anion Gap 10, Blood Urea Nitrogen 21H, Creatinine 1.15, Estimat Glomerular Filtration Rate > 60, BUN/Creatinine Ratio 18, Glucose Level 120H, Calcium Level 8.9 10/18/17 11:41: Glucometer 230H 10/18/17 16:39: Glucometer 236H 10/18/17 20:15: Glucometer 224H 10/19/17 05:31: Glucometer 96 10/19/17 11:20: Glucometer 249H Assessment/Plan Assessment Fall with Knee pain Quadriceps strain Prior RT TKR DR Dimas [facility] approx 2007 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
--- NOTE | 2017-10-19 15:35 | Speech Therapy Daily Note ---
Speech Daily Progress Note Subjective Date Seen by Provider: Oct 19, 2017 Time Seen by Provider: 14:00 The patient was seated upright in wheelchair upon entrance. The patient greeted the clinician and was agreeable to participation in the speech and language treatment session. Objective Assessment of Language Related Functional Activities: NORMA was initiated on this date with the following results: - Telling Time: The patient demonstrated 90% accuracy with reporting time on an analog clock, independently. - Solving Daily Math Problems: The patient demonstrated 70% accuracy with solving daily math problems which included calculating tax, bill additions, and due dates. Assessment Assessment Current Status: Fair Progress Treatment Plan Continue Plan of Care Communication Comprehension: 4 Expression: 3 Social Cognition Social Interaction: 5 Problem Solvin Memory: 5 Speech Short Term Goals Short Term Goals Short Term Goals 1. The patient will recall and demonstrate three word-finding strategies with mild clinician verbal prompting. PROGRESSING 2. The patient will display 80% accuracy with structured word-finding tasks with mild clinician verbal prompting. PROGRESSING Time Frame-STG: Five Days Speech [facility] Goals Boiler Plant Worker Goals 1. The patient will demonstrate improved expressive communication for increased function and safety with ADL's in the least restrictive setting. Time Frame: One Week Comprehension: 5 Expression: 5 Social Interaction: 6 Problem Solvin Memory: 6 Speech-Plan Treatment Plan Speech Therapy Treatment Plan: Continue Plan of Care Continue skilled speech pathology to target functional problem solving and expressive communication. Treatment Duration: Oct 25, 2017 Frequency: Modified Program (IRF) (Four to five times per day.) Estimated Hrs Per Day: .5 hour per day Rehab Potential: Guarded Safety Risks/Education Teaching Recipient: Patient Teaching Methods: Discussion Response to Teaching: Verbalize Understanding Education Topics Provided: Progression Towards Goals Time Speech Therapy Time In: 14:00 Speech Therapy Time Out: 14:30 Total Billed Time: 30 Billed Treatment Time 1JESSICA ELIZABEJESSICA ALONSO Oct 19, 2017 15:35
[2017-10-19 18:00] VITALS: BP 122/70
[2017-10-19] MEDS: inSUlin DETERMIR 1 UNIT/0.01 ML (LEVEMIR) CHARGE PER UNIT SQ SCH (20:19)
[2017-10-19] MEDS: FAMOTIDINE 20 MG (PEPCID) TABLET PO SCH (20:20)
[2017-10-19] MEDS: TERAZOSIN 2 MG (HYTRIN) CAP PO SCH (20:20)
[2017-10-20 06:00] VITALS: BP 142/80
[2017-10-20] MEDS: inSUlin ASPART (NovoLOG) 1 UNIT/0.01 ML (CHARGE PER UNIT) SC SCH ×4 (06:27→20:21)
[2017-10-20] MEDS: oxyCODONE/APAP 5/325MG (PERCOCET 5) TABLET PO PRN ×4 (07:17→20:14)
--- NOTE | 2017-10-20 07:50 | Progress Note (SOAP) ---
Subjective Time Seen by Provider: 07:45 Subjective/Events-last exam , quadriceps tendon sprain. patient feeling better. blood pressure better with medicine Objective Exam Vital Signs Date Time Temp Pulse Resp B/P (MAP) Pulse Ox O2 Delivery O2 Flow Rate FiO2 10/20/17 06:00 96.9 55 18 142/80 (100) 97 Room Air 10/19/17 18:00 97.0 57 20 122/70 (87) 97 Room Air 10/19/17 09:56 80 156/84 (108) 10/19/17 08:34 Room Air 10/19/17 08:26 97.8 69 20 179/87 (117) 98 Room Air I & O 10/20/17 07:00 Intake Total 1650 ml Output Total 1750 ml Balance -100 ml Capillary Refill : Less Than 3 Seconds General Appearance: WD/WN Results Lab Laboratory Tests 10/19/17 11:20: Glucometer 249H 10/19/17 17:02: Glucometer 242H 10/19/17 20:10: Glucometer 162H 10/20/17 05:24: Glucometer 116H Assessment/Plan Assessment/Plan Assess & Plan/Chief Complaint common quadriceps tendon sprain. Previous CVA. Diabetes. Renal insufficiency. . 10/05/17 , Quadriceps tendon sprain. Previous CVA. Diabetes. Renal insufficiency. sugars are running high. increase Levemir. . 10/06/17 Quadriceps tendon sprain. Previous CVA. Diabetes under good control renal insufficiency. Patient doing better. . 10/09/17. , Quadriceps tendon sprain. Previous CVA. Diabetes. Renal insufficiency Patient getting around better and feeling better about himself. . , Quadriceps tendon sprain. *CVA. 10/10/17. patient slowly improving. . 10/11/17. Previous CVA. And quadriceps tendon sprain. Renal insufficiency. Diabetes. . . 10/12/17. , Quadriceps tendon sprain. Previous CVA. Renal insufficiency. Diabetes. Patient a work in progress. . 10/13/17. Common quadriceps tendon strain. Previous CVA. Diabetes. Renal insufficiency patient working hard to improve himself. . 10/16/17. , Quadriceps tendon sprain. Previous CVA. Diabetes. Renal insufficiency. Blood pressure elevated today . 10/17/17. Quadriceps tendon sprain. Previous CVA. Diabetes. Renal insufficiency. New-onset hypertension. Patient feeling positive. . 10/18/17 quadriceps tendon sprain failure Previous CVA. Diabetes. renal insufficiency resolved. . 10/19/17. Quadriceps tendon sprain. Previous CVA. Diabetes. Hypertension.. . 10/20/17. Quadriceps tendon sprain. Previous CVA. Diabetes. Hypertension better. patient content Clinical Quality Measures DVT/VTE Risk/Contraindication: Risk Factor Score Per Nursin RFS Level Per Nursing on Admit: 4+=Very High WILLIAN NAGEL DO Oct 20, 2017 07:50
[2017-10-20] MEDS: OXcarbazepine (TRILEPTAL) 300 MG TAB PO SCH ×2 (08:09→20:13)
[2017-10-20] MEDS: SENNA W/DOCUSATE (SENOKOT S) TABLET PO SCH ×2 (08:09→20:21)
[2017-10-20] MEDS: lisINopril 10 MG (PRINIVIL) TAB PO SCH (08:09)
[2017-10-20] MEDS: ALLOPURINOL 100 MG (ZYLOPRIM) TAB PO SCH (08:09)
[2017-10-20] MEDS: amLODIPine 10 MG (NORVASC) TAB PO SCH (08:09)
[2017-10-20] MEDS: LOSARTAN 50 MG (COZAAR) TAB PO SCH (08:09)
[2017-10-20] MEDS: CLOPIDOGREL 75 MG (PLAVIX) TABLET PO SCH (08:09)
--- NOTE | 2017-10-20 08:12 | PM & R (SOAP) Progress Note ---
Subjective Time Seen by Provider: 07:50 Subjective/Events-last exam Patient was seen in his room this AM Patient min assist for transfers.Patient agreeable to plane for trial at home this weekend for day pass to see how he and his family manage Objective Exam Last Set of Vital Signs Vital Signs Date Time Temp Pulse Resp B/P (MAP) Pulse Ox O2 Delivery O2 Flow Rate FiO2 10/20/17 08:01 Room Air 10/20/17 06:00 96.9 55 18 142/80 (100) 97 Capillary Refill : Less Than 3 Seconds I&O Intake and Output 10/20/17 00:00 Intake Total 1690 ml Output Total 2325 ml Balance -635 ml Intake Oral 1690 ml Output Urine Total 2325 ml # Bowel Movements 1 General: Alert, Oriented X3, Cooperative, No Acute Distress HEENT: Atraumatic, PERRLA, EOMI, Mucous Memb Moist/[place], Other (mild expressive aphasia) Neck: Supple, No JVD Lungs: Clear to Auscultation Heart: Regular Rate Abdomen: Normal Bowel Sounds, Soft, No Tenderness Extremities: No Edema Neuro: Other (as per above) Results Lab Laboratory Tests 10/17/17 11:17: Glucometer 171H 10/17/17 16:04: Glucometer 204H 10/17/17 20:11: Glucometer 197H 10/18/17 04:59: Glucometer 96 10/18/17 06:45: Sodium Level 136, Potassium Level 4.2, Chloride Level 105, Carbon Dioxide Level 21, Anion Gap 10, Blood Urea Nitrogen 21H, Creatinine 1.15, Estimat Glomerular Filtration Rate > 60, BUN/Creatinine Ratio 18, Glucose Level 120H, Calcium Level 8.9 10/18/17 11:41: Glucometer 230H 10/18/17 16:39: Glucometer 236H 10/18/17 20:15: Glucometer 224H 10/19/17 05:31: Glucometer 96 10/19/17 11:20: Glucometer 249H 10/19/17 17:02: Glucometer 242H 10/19/17 20:10: Glucometer 162H 10/20/17 05:24: Glucometer 116H Assessment/Plan Assessment Fall with Knee pain Quadriceps strain Prior RT TKR DR Dimas [facility] approx 2008 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
--- NOTE | 2017-10-20 08:18 | Therapy Team Discharge Summary ---
Therapy Discharge Summary Discharge Recommendations Date of Discharge Therapy D/C Recommendations: Home w/ Family Support Occupational Therapy Decreased Activ Tolerance, Decreased Safety Aware, Decreased UE Strength, Dependent Transfers, Impaired Bed Mobility, Impaired Coordination (R UE), Impaired Funct Balance, Impaired Self-Care Skills, Restricted Funct UE ROM Speech-Language Pathology The patient was recently admitted to [facility] following a knee sprain. Upon admission, the patient demonstrated moderate expressive aphasia secondary to a stroke experienced many years prior. The patient wished to "work towards" improved expressive communication regardless of the long history of his current language skills. Skilled speech pathology focused on word-finding and problem solving. The patient did not meet goals of speech pathology, requesting to discharge from speech pathology to spend additional time working towards physical therapy goals. At this time, speech pathology is not recommended following discharge. PT Outside Parts Sales Goals Outside [employer] Sales Goals PT Outside [employer] Sales Goals Time Frame: Oct 25, 2017 Transfers (B,C,W/C) (FIM): 5 Roll Left to Right (QC): 4 Sit to Lying (QC): 4 Lying-Sitting on Side/Bed(QC): 4 Sit to Stand (QC): 4 Chair/Jgd-oa-Cklgb Xfer(QC): 4 Car Transfer (QC): 4 Does the Patient Walk: Yes Gait (FIM): 5 Distance: 200 feet Walk 10 feet (QC): 4 Walk 10ft-Uneven Surface(QC): 4 Walk 50ft with 2 Turns (QC): 4 Walk 150 ft (QC): 4 Gait Level of Assist: 5 Gait Assistive Device: Walker Platform Does the Pt use WC or Scooter?: Yes Wheelchair (FIM): 6 Distance: 200 feet Wheelchair Level of Assist: 6 Wheel 50 feet with 2 turns (QC: 6 Stairs (FIM): 2 # of Steps: 4 1 Step (curb) (QC): 4 4 Steps (QC): 4 12 Steps (QC): 88 Stairs Level Of Assist: 5 Picking up an Object (QC): 88 OT Mcc Goals [employer] Sales Goals Time Frame: Oct 25, 2017 Eating (FIM): 6 Eating (QC): 6 Oral Hygiene (QC): 6 Grooming(FIM): 6 Bathing(FIM): 6 Shower/Bathe Self (QC): 6 Upper Body Dressing(FIM): 6 Upper Body Dressing (QC): 6 Lower Body Dressing(FIM): 6 Lower Body Dressing (QC): 6 On/Off Footwear (QC): 6 Toileting(FIM): 6 Toileting Hygiene (QC): 6 Transfers (B,C,W/C) (FIM): 6 Toilet/Commode Transfer(FIM): 6 Toilet/Commode Transfer (QC): 6 Shower Transfer(FIM): 6 Comprehension(FIM): 5 Expression (FIM): 5 Social Interaction(FIM): 6 Problem Solving(FIM): 5 Memory(FIM): 6 Additional Goals: 1-Demonstrate ADL Tasks, 2-Verbalize Understanding, 3- ImproveStrength/Gregorio 1=Demonstrate adherence to instructed precautions during ADL tasks. 2=Patient will verbalize/demonstrate understanding of assistive devices/ modifications for ADL. 3=Patient will improve strength/tolerance for activity to enable patient to perform ADL's. Speech Mcc Goals Outside [employer] Sales Goals 1. The patient will demonstrate improved expressive communication for increased function and safety with ADL's in the least restrictive setting. Time Frame: One Week Comprehension: 5 (NOT MET) Expression: 5 (NOT MET) Social Interaction: 6 (MET) Problem Solvin (NOT MET) Memory: 6 (NOT MET) ZELALEM JOY Oct 20, 2017 08:18
--- NOTE | 2017-10-20 10:24 | Physical Therapy Daily Note ---
PT Daily Note-Current Subjective Pt. agrees to rx. sends word that pts bed height at home is 28 in from floor. Pt. continues c/o pain in right knee at 9/10 with movement and activity/ attempts at TRFs and gait etc. Pt. initially expresses that he wants to walk with standard FWW but changes his mind after this DIRECTOR INSTRUCTIONAL MATERIAL assists him with attempting this. Pain Numeric Pain Scale: 9 Location: Right Location Body Site: Knee Pain Description: Stabbing Mental Status Patient Orientation: Person, Place, Time, Situation, Mumbles Attachments: Other-See Comments (knee support R knee) Transfers Functional [place] Measure 0=Not Assessed/NA 4=Minimal Assistance 1=Total Assistance 5=Supervision or Setup 2=Maximal Assistance 6=Modified [place] 3=Moderate Assistance 7=Complete IndependenceIRFPAI Quality Coding Scale 6 Independent with activity with or without an assistive device 5 Patient requires set up or clean up by helper. Patient completes activity by themselves 4 Supervision or touching assist (CGA). [place] provide cues , steadying assist 3 The helper provides less than half the effort to complete the activity 2 The helper provides more than half the effort to complete the activity 1 Dependent. The helper does all the effort to complete an activity 7 Patient refused to complete or attempt activity 9 The patient did not perform the activity before the current illness or injury 88 Not attempted due to Medical conditions or safety concerns Transfers (B, C, W/C) (FIM): 3 Scootin Rollin Supine to/from Sit: 3 Sit to/from Stand: 4 Bed to/from Chair: 4 psuedo car TRF at [facility] with mod assist mainly "out of car" as pt. has difficulty TRFing toward right Weight Bearing Right Lower Extremity: Right Weight Bearing/Tolerated Left Lower Extremity: Left Full Weight Bearing Gait Training Does the Patient Walk?: Yes Gait (FIM): 1 Distance (FIM): 1=up to 49 ft (10ftx2) Gait Level of Assist: 3 Gait Persons Needed: 1 Gait Assistive Device: Walker Sonny pt. had much difficulty with sonny walker and unable to take a step at all with std FWW . continued c/o increased onset of pain in right knee if he attempts wt bearing Wheelchair Training Does the Pt Use a Wheelchair?: Yes Wheelchair (FIM): 5 Wheelchair Distance: 3=150 ft Wheelchair Level of Assist: 5 Type of Wheelchair: Manual Exercises Supine Ex: Bridging, Quad Set, Heel Slides, Hip abd/add Supine Reps: 15 Treatments much work in car TRFs and bed TRFs at 28 in which is difficult for pt. and he requires assist for this. Pt.s own bed at home has head that raises and lowers but if he moves to lower height bed in his home he wont have head up down option Assessment Current Status: Fair Progress pt. requires assist for all aspects of mobility PT Short Term Goals Short Term Goals Time Frame: Oct 11, 2017 Gait (FIM): 2 Distance (FIM): 0=227-31 ft Gait Distance Comment: 100 feet with FWW and armrest for RUE Gait Level of Assist: 4 Gait Assistive Device: Walker Platform Wheelchair (FIM): 3 Wheelchair distance (FIM): 3=150 ft Wheelchair Distance: 100' Wheelchair Level of Assist: 5 Stairs (FIM): 1 # of Steps: 1 Stairs Level of Assist: 4 PT Department Store Manager Goals Mcfp Goals PT Department Store Manager Goals Time Frame: Oct 25, 2017 Transfers (B,C,W/C) (FIM): 5 Sit to Lying (QC): 4 Lying-Sitting on Side/Bed(QC): 4 Sit to Stand (QC): 4 Rollin Roll Left to Right (QC): 4 Chair/Dfg-iu-Mvvsn Xfer(QC): 4 Car Transfer (QC): 4 Does the Patient Walk: Yes Gait (FIM): 5 Distance: 200 feet Walk 10 feet (QC): 4 Walk 10ft-Uneven Surface(QC): 4 Walk 50ft with 2 Turns (QC): 4 Walk 150 ft (QC): 4 Gait Level of Assist: 5 Gait Assistive Device: Walker Platform Does the Pt use WC or Scooter?: Yes Wheelchair (FIM): 6 Distance: 200 feet Wheelchair Level of Assist: 6 Wheel 50 feet with 2 turns (QC: 6 Stairs (FIM): 2 # of Steps: 4 1 Step (curb) (QC): 4 4 Steps (QC): 4 12 Steps (QC): 88 Stairs Level Of Assist: 5 Picking up an Object (QC): 88 PT Plan Treatment/Plan Treatment Plan: Continue Plan of Care Treatment Plan: Bed Mobility, Education, Functional Activity Gregorio, Functional Strength, Group Therapy, Gait, Safety, Therapeutic Exercise, Transfers Treatment Duration: Oct 25, 2017 Frequency: At least 5 of 7 days/Wk (IRF) Estimated Hrs Per Day: 1.5 hours per day Patient and/or Family Agrees t: Yes Safety Risks/Education Patient Education: Gait Training, Transfer Techniques, Correct Positioning, Safety Issues Teaching Recipient: Patient Teaching Methods: Demonstration, Discussion Response to Teaching: Unable to Return Demonstration, Reinforcement Needed Time/GCodes Time In: 900 Time Out: 1000 Total Billed Treatment Time: 60 Total Billed Treatment 1,GT20m,FA25m,EX15m G Codes Necessary: ARANZA Iglesias DIRECTOR INSTRUCTIONAL MATERIAL Oct 20, 2017 10:24
--- NOTE | 2017-10-20 12:00 | Occupational Ther Daily Note ---
OT Current Status-Daily Note Subjective Pt seen in room, up in recliner, agreeable to OT. Pt reported increased pain in R knee but did not rate or describe it. It seems to limit his mobility Appearance Alert, cooperative Mental Status/Objective Functional [place] Measure 0=Not Assessed/NA 4=Minimal Assistance 1=Total Assistance 5=Supervision or Setup 2=Maximal Assistance 6=Modified [place] 3=Moderate Assistance 7=Complete [place] ADL-Treatment He transferred from recliner to w/c with SBA/CGA, doing squat pivot transfer. Pt 's family have sent pictures of his home and bathrooms. Pt and OT looked at them and discussed/problem solved which rooms would have w/c access and identified a bathtub and toilet that appear to be most accessible. Pt took himself to shower room, per w/c, where OT demonstrated tub transfer with transfer tub bench and pt practiced one, with CGA. Tub bench at home would be facing the other direction from the one in the shower room but he was able to transfer to right and left. May benefit from additional grab bars and hand held shower. Pt also practiced squat pivot transfer on/off toilet in his room, with grab bar on L side, with CGA. He said that his would br able to manage his clothing. Pt declined a shower but agreed to wash upper body and change shirts. He was able to do this with setup, at w/c level. Functional [place] Measure 0=Not Assessed/NA 4=Minimal Assistance 1=Total Assistance 5=Supervision or Setup 2=Maximal Assistance 6=Modified [place] 3=Moderate Assistance 7=Complete IndependenceIRFPAI Quality Coding Scale 6 Independent with activity with or without an assistive device 5 Patient requires set up or clean up by helper. Patient completes activity by themselves 4 Supervision or touching assist (CGA). [place] provide cues , steadying assist 3 The helper provides less than half the effort to complete the activity 2 The helper provides more than half the effort to complete the activity 1 Dependent. The helper does all the effort to complete an activity 7 Patient refused to complete or attempt activity 9 The patient did not perform the activity before the current illness or injury 88 Not attempted due to Medical conditions or safety concerns Other Treatment pt propelled w/c to gym and did L UE strengthening activities with 1# weight on L forearm (included arc activity on short and medium extensions and pegs). To strengthen arm to help with transfers and standing during ADLs. Pt returned to room and transferred to recliner with CGA with squat pivot transfer. pt left up in recliner, legs elevated, all needs met. Education OT Patient Education: Exercise program, Modified ADL techniques, Progress toward Goal/Update tx plan, Purpose of tx/functional activities, Safety issues, Transfer techniques, Use of adapted equipment Teaching Recipient: Patient Teaching Methods: Demonstration, Discussion Response to Teaching: Verbalize Understanding, Return Demonstration, Reinforcement Needed OT Short Term Goals Short Term Goals Time Frame: Oct 13, 2017 Toileting(FIM): 3 Toilet/Commode Transfer(FIM): 3 Shower Transfer(FIM): 3 Additional Short Term Goals: 1-Demonstrate ADL Tasks, 2-Verbalize Understanding , 3-ImproveStrength/Gregorio 1=Demonstrate adherence to instructed precautions during ADL tasks. 2=Patient will verbalize/demonstrate understanding of assistive devices/ modifications for ADL. 3=Patient will improve strength/tolerance for activity to enable patient to perform ADL's. OT Retirement Goals Retirement Goals Time Frame: Oct 25, 2017 Eating (FIM): 6 Eating (QC): 6 Groomin Oral Hygiene (QC): 6 Bathing(FIM): 6 Shower/Bathe Self (QC): 6 Upper Body Dressing(FIM): 6 Upper Body Dressing (QC): 6 Lower Body Dressing(FIM): 6 Lower Body Dressing (QC): 6 On/Off Footwear (QC): 6 Toileting(FIM): 6 Toileting Hygiene (QC): 6 Transfers (B,C,W/C) (FIM): 6 Toilet/Commode Transfer(FIM): 6 Toilet/Commode Transfer (QC): 6 Shower Transfer(FIM): 6 Comprehension(FIM): 5 (NOT MET) Expression (FIM): 5 (NOT MET) Social Interaction(FIM): 6 (MET) Problem Solving(FIM): 5 (NOT MET) Memory(FIM): 6 (NOT MET) Additional Goals: 1-Demonstrate ADL Tasks, 2-Verbalize Understanding, 3- ImproveStrength/Gregorio 1=Demonstrate adherence to instructed precautions during ADL tasks. 2=Patient will verbalize/demonstrate understanding of assistive devices/ modifications for ADL. 3=Patient will improve strength/tolerance for activity to enable patient to perform ADL's. OT Education/Plan Problem List/Assessment Pt would benefit from skilled OT to increase his independence in basic self care to allow him to safely return to his home to live with his and to decrease caregiver burden. Discharge Recommendations Plan/Recommendations: Continue POC Treatment Plan/Plan of Care Patient would benefit from OT for education, treatment and training to promote independence in ADL's, mobility, safety and/or upper extremity function for ADL' s. Plan of Care: ADL Retraining, Functional Mobility, Group Exercise/Act as Ind ( education, exercise, act tolerance, problem solving, funct mobility, communication, socialization), UE Funct Exercise/Act, UE Neuromus Re-Ed/Coord Treatment Duration: Oct 25, 2017 Frequency: At least 5 of 7 days/Wk (IRF) Estimated Hrs Per Day: 1.5 hours per day (1-25 to 1.5) Agreement: Yes Rehab Potential: Guarded Time/GCodes Start Time: 10:15 Stop Time: 11:18 Total Time Billed (hr/min): 63 Billed Treatment Time visit, 45 minutes ADL, 18 minutes exercise TERE DEL CASTILLO OT Oct 20, 2017 12:00
--- NOTE | 2017-10-20 14:04 | Occupational Ther Daily Note ---
OT Current Status-Daily Note Subjective Pt seen in room, up in recliner, agreeable to OT. Reported R knee continues to hurt. Appearance Alert, cooperative Mental Status/Objective Functional [place] Measure 0=Not Assessed/NA 4=Minimal Assistance 1=Total Assistance 5=Supervision or Setup 2=Maximal Assistance 6=Modified [place] 3=Moderate Assistance 7=Complete [place] ADL-Treatment Functional [place] Measure 0=Not Assessed/NA 4=Minimal Assistance 1=Total Assistance 5=Supervision or Setup 2=Maximal Assistance 6=Modified [place] 3=Moderate Assistance 7=Complete IndependenceIRFPAI Quality Coding Scale 6 Independent with activity with or without an assistive device 5 Patient requires set up or clean up by helper. Patient completes activity by themselves 4 Supervision or touching assist (CGA). [place] provide cues , steadying assist 3 The helper provides less than half the effort to complete the activity 2 The helper provides more than half the effort to complete the activity 1 Dependent. The helper does all the effort to complete an activity 7 Patient refused to complete or attempt activity 9 The patient did not perform the activity before the current illness or injury 88 Not attempted due to Medical conditions or safety concerns Other Treatment Pt transferred from recliner to w/c, moving to his L side, with CGA, squat pivot transfers. He propelled w/c to gym and did 12 minutes R UE exercise with arm bike set at 25-30W resistance (increased time and resistance), with one brief recovery period. To strengthen arm to help with transfers and standing during ADLs. Pt propelled himself back to his room (working on L UE strength with w/c management) and was left up in w/c, all needs met. Education OT Patient Education: Exercise program, Progress toward Goal/Update tx plan, Purpose of tx/functional activities, Safety issues, Transfer techniques Teaching Recipient: Patient Teaching Methods: Discussion Response to Teaching: Verbalize Understanding OT Short Term Goals Short Term Goals Time Frame: Oct 13, 2017 Toileting(FIM): 3 Toilet/Commode Transfer(FIM): 3 Shower Transfer(FIM): 3 Additional Short Term Goals: 1-Demonstrate ADL Tasks, 2-Verbalize Understanding , 3-ImproveStrength/Gregorio 1=Demonstrate adherence to instructed precautions during ADL tasks. 2=Patient will verbalize/demonstrate understanding of assistive devices/ modifications for ADL. 3=Patient will improve strength/tolerance for activity to enable patient to perform ADL's. OT Assisted Goals Stamper Blocker Goals Time Frame: Oct 25, 2017 Eating (FIM): 6 Eating (QC): 6 Groomin Oral Hygiene (QC): 6 Bathing(FIM): 6 Shower/Bathe Self (QC): 6 Upper Body Dressing(FIM): 6 Upper Body Dressing (QC): 6 Lower Body Dressing(FIM): 6 Lower Body Dressing (QC): 6 On/Off Footwear (QC): 6 Toileting(FIM): 6 Toileting Hygiene (QC): 6 Transfers (B,C,W/C) (FIM): 6 Toilet/Commode Transfer(FIM): 6 Toilet/Commode Transfer (QC): 6 Shower Transfer(FIM): 6 Comprehension(FIM): 5 (NOT MET) Expression (FIM): 5 (NOT MET) Social Interaction(FIM): 6 (MET) Problem Solving(FIM): 5 (NOT MET) Memory(FIM): 6 (NOT MET) Additional Goals: 1-Demonstrate ADL Tasks, 2-Verbalize Understanding, 3- ImproveStrength/Gregorio 1=Demonstrate adherence to instructed precautions during ADL tasks. 2=Patient will verbalize/demonstrate understanding of assistive devices/ modifications for ADL. 3=Patient will improve strength/tolerance for activity to enable patient to perform ADL's. OT Education/Plan Problem List/Assessment Pt would benefit from skilled OT to increase his independence in basic self care to allow him to safely return to his home to live with his and to decrease caregiver burden. Discharge Recommendations Plan/Recommendations: Continue POC Treatment Plan/Plan of Care Patient would benefit from OT for education, treatment and training to promote independence in ADL's, mobility, safety and/or upper extremity function for ADL' s. Plan of Care: ADL Retraining, Functional Mobility, Group Exercise/Act as Ind ( education, exercise, act tolerance, problem solving, funct mobility, communication, socialization), UE Funct Exercise/Act, UE Neuromus Re-Ed/Coord Treatment Duration: Oct 25, 2017 Frequency: At least 5 of 7 days/Wk (IRF) Estimated Hrs Per Day: 1.5 hours per day (1-25 to 1.5) Agreement: Yes Rehab Potential: Guarded Time/GCodes Start Time: 13:00 Stop Time: 13:30 Total Time Billed (hr/min): 30 Billed Treatment Time visit, 30 minutes exercise TERE DEL CASTILLO OT Oct 20, 2017 14:04
--- NOTE | 2017-10-20 14:27 | Physical Therapy Daily Note ---
PT Daily Note-Current Subjective Pt. states repeatedly that he has declining gait status "i was walking further when I got here than I am now" Pain Numeric Pain Scale: 6 Location: Right Location Body Site: Knee Pain Description: Stabbing Transfers Functional [place] Measure 0=Not Assessed/NA 4=Minimal Assistance 1=Total Assistance 5=Supervision or Setup 2=Maximal Assistance 6=Modified [place] 3=Moderate Assistance 7=Complete IndependenceIRFPAI Quality Coding Scale 6 Independent with activity with or without an assistive device 5 Patient requires set up or clean up by helper. Patient completes activity by themselves 4 Supervision or touching assist (CGA). [place] provide cues , steadying assist 3 The helper provides less than half the effort to complete the activity 2 The helper provides more than half the effort to complete the activity 1 Dependent. The helper does all the effort to complete an activity 7 Patient refused to complete or attempt activity 9 The patient did not perform the activity before the current illness or injury 88 Not attempted due to Medical conditions or safety concerns sit to stand all min assist Weight Bearing Right Lower Extremity: Right Weight Bearing/Tolerated Left Lower Extremity: Left Full Weight Bearing Gait Training Does the Patient Walk?: Yes Gait (FIM): 1 Distance (FIM): 1=up to 49 ft (30ftx2) Gait Level of Assist: 3 Gait Persons Needed: 1 Gait Assistive Device: Walker Platform Pt. leaning left and windswept with narrow JO ANN. Pt. with R knee flexed and difficulty advancing RLE with resistance to wt bearing. Platform on R lowered to attempt to facilitate R LE wt bearing. this did not help with gait Wheelchair Training pt. pushed self 30 ft x 2 to and from Rx Assessment Current Status: Poor Progress pt. has declined. Pain is elevated and gait distance is less. Gait has never been a functional means of mobility since admit. WC is a more realistic goal at this juncture. Awaiting results of XR to be done on pelvis to r/o hip issues on right PT Short Term Goals Short Term Goals Time Frame: Oct 11, 2017 Gait (FIM): 2 Distance (FIM): 8=472-99 ft Gait Distance Comment: 100 feet with FWW and armrest for RUE Gait Level of Assist: 4 Gait Assistive Device: Walker Platform Wheelchair (FIM): 3 Wheelchair distance (FIM): 3=150 ft Wheelchair Distance: 100' Wheelchair Level of Assist: 5 Stairs (FIM): 1 # of Steps: 1 Stairs Level of Assist: 4 PT Usp Goals Return To Service Inspector Goals PT Return To Service Inspector Goals Time Frame: Oct 25, 2017 Transfers (B,C,W/C) (FIM): 5 Sit to Lying (QC): 4 Lying-Sitting on Side/Bed(QC): 4 Sit to Stand (QC): 4 Rollin Roll Left to Right (QC): 4 Chair/Zmt-gb-Hilqr Xfer(QC): 4 Car Transfer (QC): 4 Does the Patient Walk: Yes Gait (FIM): 5 Distance: 200 feet Walk 10 feet (QC): 4 Walk 10ft-Uneven Surface(QC): 4 Walk 50ft with 2 Turns (QC): 4 Walk 150 ft (QC): 4 Gait Level of Assist: 5 Gait Assistive Device: Walker Platform Does the Pt use WC or Scooter?: Yes Wheelchair (FIM): 6 Distance: 200 feet Wheelchair Level of Assist: 6 Wheel 50 feet with 2 turns (QC: 6 Stairs (FIM): 2 # of Steps: 4 1 Step (curb) (QC): 4 4 Steps (QC): 4 12 Steps (QC): 88 Stairs Level Of Assist: 5 Picking up an Object (QC): 88 PT Plan Treatment/Plan Treatment Plan: Continue Plan of Care Treatment Plan: Bed Mobility, Education, Functional Activity Gregorio, Functional Strength, Group Therapy, Gait, Safety, Therapeutic Exercise, Transfers Treatment Duration: Oct 25, 2017 Frequency: At least 5 of 7 days/Wk (IRF) Estimated Hrs Per Day: 1.5 hours per day Patient and/or Family Agrees t: Yes Safety Risks/Education Patient Education: Gait Training, Transfer Techniques Teaching Recipient: Patient Teaching Methods: Demonstration, Discussion Response to Teaching: Verbalize Understanding, Unable to Return Demonstration, Reinforcement Needed Time/GCodes Time In: 1345 Time Out: 1415 Total Billed Treatment Time: 30 Total Billed Treatment 1,GT30m G Codes Necessary: ARANZA Iglesias HISTORICAL ARCHEOLOGIST Oct 20, 2017 14:27
--- NOTE | 2017-10-20 15:28 | Diagnostic Imaging Report ---
PROCEDURE: CT lumbar spine without contrast. TECHNIQUE: Multiple contiguous axial images were obtained through the lumbar spine without the use of intravenous contrast. Sagittal and coronal reformations were then performed. INDICATION: Fell, right leg pain. COMPARISON: There are no prior studies available for comparison. FINDINGS: The reconstructed sagittal images show the vertebral body heights and alignment to be generally within normal limits and the intervertebral spaces to be well maintained. The axial images fail to show any sign of a high-grade central stenosis. There does not appear to be any significant neural foraminal narrowing either. There is no sign of a fracture, and there is no evidence for a destructive lesion. However, on the director of nurses registry film, the femoral component of the total hip prosthesis on the right is dislocated superiorly and laterally with respect to the acetabular component. I would recommend that a two-view study of the right hip be obtained for further study. There is no paraspinal mass visualized. IMPRESSION: 1. There is no evidence for an acute bony abnormality. However, the total hip prosthesis on the right is dislocated. Recommendations as above. 2. There is no sign of a high-grade central stenosis or any significant neural foraminal narrowing. 3. If clinical concern regarding an underlying abnormality of the lumbar spine persists and further imaging is desired, then MRI would be recommended. 4. These results were called to Dr. Vishnu Hendrix at the time of this dictation. CRITICAL FINDING Dictated by: Dictated on workstation # [id number]
--- NOTE | 2017-10-20 17:07 | Diagnostic Imaging Report ---
INDICATION: Arthroplasty of the right hip with possible dislocation. FINDINGS: Two views of the right hip show dorsal dislocation of the humeral head component with respect to the acetabular component. There are no bony fractures. No evidence of hardware loosening or hardware failure. IMPRESSION: Dislocation of the right hip arthroplasty component. Dictated by: Dictated on workstation # [id number]
[2017-10-20 18:26] VITALS: BP 180/78
[2017-10-20] MEDS: TERAZOSIN 2 MG (HYTRIN) CAP PO SCH (20:13)
[2017-10-20] MEDS: FAMOTIDINE 20 MG (PEPCID) TABLET PO SCH (20:13)
[2017-10-20] MEDS: inSUlin DETERMIR 1 UNIT/0.01 ML (LEVEMIR) CHARGE PER UNIT SQ SCH (20:21)
[2017-10-21] MEDS: oxyCODONE/APAP 5/325MG (PERCOCET 5) TABLET PO PRN ×4 (05:44→20:26)
[2017-10-21] MEDS: inSUlin ASPART (NovoLOG) 1 UNIT/0.01 ML (CHARGE PER UNIT) SC SCH ×4 (05:44→20:33)
[2017-10-21 05:50] VITALS: BP 149/79
[2017-10-21] MEDS: LOSARTAN 50 MG (COZAAR) TAB PO SCH (08:58)
[2017-10-21] MEDS: lisINopril 10 MG (PRINIVIL) TAB PO SCH (08:58)
[2017-10-21] MEDS: ALLOPURINOL 100 MG (ZYLOPRIM) TAB PO SCH (08:58)
[2017-10-21] MEDS: SENNA W/DOCUSATE (SENOKOT S) TABLET PO SCH ×2 (08:58→20:26)
[2017-10-21] MEDS: OXcarbazepine (TRILEPTAL) 300 MG TAB PO SCH ×2 (08:58→20:26)
[2017-10-21] MEDS: CLOPIDOGREL 75 MG (PLAVIX) TABLET PO SCH (08:58)
[2017-10-21] MEDS: amLODIPine 10 MG (NORVASC) TAB PO SCH (08:58)
[2017-10-21 17:36] VITALS: BP 114/70
[2017-10-21] MEDS: FAMOTIDINE 20 MG (PEPCID) TABLET PO SCH (20:26)
[2017-10-21] MEDS: TERAZOSIN 2 MG (HYTRIN) CAP PO SCH (20:26)
[2017-10-21] MEDS: inSUlin DETERMIR 1 UNIT/0.01 ML (LEVEMIR) CHARGE PER UNIT SQ SCH (20:27)
[2017-10-22] MEDS: oxyCODONE/APAP 5/325MG (PERCOCET 5) TABLET PO PRN ×4 (05:25→20:31)
[2017-10-22 05:38] VITALS: BP 153/89
[2017-10-22] MEDS: inSUlin ASPART (NovoLOG) 1 UNIT/0.01 ML (CHARGE PER UNIT) SC SCH ×4 (06:04→20:36)
[2017-10-22] MEDS: CLOPIDOGREL 75 MG (PLAVIX) TABLET PO SCH (08:51)
[2017-10-22] MEDS: lisINopril 10 MG (PRINIVIL) TAB PO SCH (08:51)
[2017-10-22] MEDS: ALLOPURINOL 100 MG (ZYLOPRIM) TAB PO SCH (08:51)
[2017-10-22] MEDS: SENNA W/DOCUSATE (SENOKOT S) TABLET PO SCH ×2 (08:51→20:30)
[2017-10-22] MEDS: OXcarbazepine (TRILEPTAL) 300 MG TAB PO SCH ×2 (08:51→20:30)
[2017-10-22] MEDS: LOSARTAN 50 MG (COZAAR) TAB PO SCH (08:51)
[2017-10-22] MEDS: amLODIPine 10 MG (NORVASC) TAB PO SCH (08:51)
[2017-10-22 17:18] VITALS: BP 135/75
[2017-10-22] MEDS: TERAZOSIN 2 MG (HYTRIN) CAP PO SCH (20:30)
[2017-10-22] MEDS: FAMOTIDINE 20 MG (PEPCID) TABLET PO SCH (20:30)
[2017-10-22] MEDS: inSUlin DETERMIR 1 UNIT/0.01 ML (LEVEMIR) CHARGE PER UNIT SQ SCH (20:32)
[2017-10-23] MEDS: oxyCODONE/APAP 5/325MG (PERCOCET 5) TABLET PO PRN ×3 (04:06→13:05)
[2017-10-23 04:15] VITALS: BP 151/79
[2017-10-23] MEDS: inSUlin ASPART (NovoLOG) 1 UNIT/0.01 ML (CHARGE PER UNIT) SC SCH ×2 (06:20→11:41)
--- NOTE | 2017-10-23 08:20 | Progress Note (SOAP) ---
Subjective Time Seen by Provider: 08:17 Subjective/Events-last exam patient has dislocated hips. Spoke to about the situation. [facility] Had a long talk with and patient Objective Exam Vital Signs Date Time Temp Pulse Resp B/P (MAP) Pulse Ox O2 Delivery O2 Flow Rate FiO2 10/23/17 04:15 96.8 55 18 151/79 (103) 97 Room Air 10/22/17 20:30 Room Air 10/22/17 17:18 96.8 55 16 135/75 (95) 98 Room Air I & O 10/23/17 07:00 Intake Total 1462 ml Output Total 1325 ml Balance 137 ml Capillary Refill : Less Than 3 Seconds General Appearance: No Apparent Distress, WD/WN Results Lab Laboratory Tests 10/22/17 11:32: Glucometer 273H 10/22/17 16:17: Glucometer 161H 10/22/17 20:29: Glucometer 239H 10/23/17 05:59: Glucometer 98 Assessment/Plan Assessment/Plan Assess & Plan/Chief Complaint common quadriceps tendon sprain. Previous CVA. Diabetes. Renal insufficiency. . 10/05/17 , Quadriceps tendon sprain. Previous CVA. Diabetes. Renal insufficiency. sugars are running high. increase Levemir. . 10/06/17 Quadriceps tendon sprain. Previous CVA. Diabetes under good control renal insufficiency. Patient doing better. . 10/09/17. , Quadriceps tendon sprain. Previous CVA. Diabetes. Renal insufficiency Patient getting around better and feeling better about himself. . , Quadriceps tendon sprain. *CVA. 10/10/17. patient slowly improving. . 10/11/17. Previous CVA. And quadriceps tendon sprain. Renal insufficiency. Diabetes. . . 10/12/17. , Quadriceps tendon sprain. Previous CVA. Renal insufficiency. Diabetes. Patient a work in progress. . 10/13/17. Common quadriceps tendon strain. Previous CVA. Diabetes. Renal insufficiency patient working hard to improve himself. . 10/16/17. , Quadriceps tendon sprain. Previous CVA. Diabetes. Renal insufficiency. Blood pressure elevated today . 10/17/17. Quadriceps tendon sprain. Previous CVA. Diabetes. Renal insufficiency. New-onset hypertension. Patient feeling positive. . 10/18/17 quadriceps tendon sprain failure Previous CVA. Diabetes. renal insufficiency resolved. . 10/19/17. Quadriceps tendon sprain. Previous CVA. Diabetes. Hypertension.. . 10/20/17. Quadriceps tendon sprain. Previous CVA. Diabetes. Hypertension better. patient content . 10/23/17. Left hip dislocation. Previous CVA. Diabetes under control. Hypertension Clinical Quality Measures DVT/VTE Risk/Contraindication: Risk Factor Score Per Nursin RFS Level Per Nursing on Admit: 4+=Very High WILLIAN NAGEL DO Oct 23, 2017 08:20
[2017-10-23] MEDS: OXcarbazepine (TRILEPTAL) 300 MG TAB PO SCH (09:52)
[2017-10-23] MEDS: LOSARTAN 50 MG (COZAAR) TAB PO SCH (09:52)
[2017-10-23] MEDS: amLODIPine 10 MG (NORVASC) TAB PO SCH (09:52)
[2017-10-23] MEDS: SENNA W/DOCUSATE (SENOKOT S) TABLET PO SCH (09:52)
[2017-10-23] MEDS: lisINopril 10 MG (PRINIVIL) TAB PO SCH (09:52)
[2017-10-23] MEDS: ALLOPURINOL 100 MG (ZYLOPRIM) TAB PO SCH (11:00)
[2017-10-23] MEDS: CLOPIDOGREL 75 MG (PLAVIX) TABLET PO SCH (11:00)
[2017-10-23] MEDS ORDERED: LISI10TA2 PO (11:13)
[2017-10-23 14:03] VITALS: BP 151/79
--- NOTE | 2017-10-23 14:55 | Therapy Team Discharge Summary ---
Therapy Discharge Summary Discharge Recommendations Date of Discharge Therapy D/C Recommendations: Home w/ Family Support Physical Therapy This patient presented to [facility] for skilled therapy intervention post acute hospital stay with a diagnosis of Right knee strain. Prior to event requiring medical intervention, pt was indep with all mobility and actively worked out in a local gym on a regular basis. Family and pt report he was very active and able to lift weights. Upon admission to our facility, he required max assist with transfers, ambulated 50 ft with FWW with min assist with limited WB through the right LE and he was able to propel the wheelchair 100 ft with min assist. Treatment consisted of functional transfer and gait training as well as LE strengthening and stretching activities. His progress was limited and therefore further investigation took place to determine if other factors were involved. It was found that his right prosthetic hip was dislocated. Upon last charted PT visit, pt required mod assist with transfers, ambulated 10 ft with mod assist with FWW and was SBA with wheelchair mobility. Pt to transfer to [facility] [place] this date for orthopedic management. DC PT at this time. Occupational Therapy Decreased Activ Tolerance, Decreased Safety Aware, Decreased UE Strength, Dependent Transfers, Impaired Bed Mobility, Impaired Coordination (R UE), Impaired Funct Balance, Impaired Self-Care Skills, Restricted Funct UE ROM PT Human Relations Professor Goals Human Relations Professor Goals PT Usp Goals Time Frame: Oct 25, 2017 Transfers (B,C,W/C) (FIM): 5 Roll Left to Right (QC): 4 Sit to Lying (QC): 4 Lying-Sitting on Side/Bed(QC): 4 Sit to Stand (QC): 4 Chair/Cbq-fr-Kcpns Xfer(QC): 4 Car Transfer (QC): 4 Does the Patient Walk: Yes Gait (FIM): 5 Distance: 200 feet Walk 10 feet (QC): 4 Walk 10ft-Uneven Surface(QC): 4 Walk 50ft with 2 Turns (QC): 4 Walk 150 ft (QC): 4 Gait Level of Assist: 5 Gait Assistive Device: Walker Platform Does the Pt use WC or Scooter?: Yes Wheelchair (FIM): 6 Distance: 200 feet Wheelchair Level of Assist: 6 Wheel 50 feet with 2 turns (QC: 6 Stairs (FIM): 2 # of Steps: 4 1 Step (curb) (QC): 4 4 Steps (QC): 4 12 Steps (QC): 88 Stairs Level Of Assist: 5 Picking up an Object (QC): 88 No goals met, pt transferred to [facility] for further orthopedic management. OT Human Relations Professor Goals Human Relations Professor Goals Time Frame: Oct 25, 2017 Eating (FIM): 6 Eating (QC): 6 Oral Hygiene (QC): 6 Grooming(FIM): 6 Bathing(FIM): 6 Shower/Bathe Self (QC): 6 Upper Body Dressing(FIM): 6 Upper Body Dressing (QC): 6 Lower Body Dressing(FIM): 6 Lower Body Dressing (QC): 6 On/Off Footwear (QC): 6 Toileting(FIM): 6 Toileting Hygiene (QC): 6 Transfers (B,C,W/C) (FIM): 6 Toilet/Commode Transfer(FIM): 6 Toilet/Commode Transfer (QC): 6 Shower Transfer(FIM): 6 Comprehension(FIM): 5 (NOT MET) Expression (FIM): 5 (NOT MET) Social Interaction(FIM): 6 (MET) Problem Solving(FIM): 5 (NOT MET) Memory(FIM): 6 (NOT MET) Additional Goals: 1-Demonstrate ADL Tasks, 2-Verbalize Understanding, 3- ImproveStrength/Gregorio 1=Demonstrate adherence to instructed precautions during ADL tasks. 2=Patient will verbalize/demonstrate understanding of assistive devices/ modifications for ADL. 3=Patient will improve strength/tolerance for activity to enable patient to perform ADL's. Speech Usp Goals Human Relations Professor Goals 1. The patient will demonstrate improved expressive communication for increased function and safety with ADL's in the least restrictive setting. Time Frame: One Week Comprehension: 5 (NOT MET) Expression: 5 (NOT MET) Social Interaction: 6 (MET) Problem Solvin (NOT MET) Memory: 6 (NOT MET) RU ADAME PT Oct 23, 2017 14:55
--- NOTE | 2017-10-23 16:42 | Therapy Team Discharge Summary ---
Therapy Discharge Summary Discharge Recommendations Date of Discharge Therapy D/C Recommendations: Home w/ Family Support Occupational Therapy Pt was seen for skilled OT to increase his independence in basic self care and to decrease caregiver burden. Pt was admitted after R knee sprain while working out at a gym. He was previously independence in self care, drove and did woodworking (PMH included CVA with R hemiplegia, R TKA, bilat ADAM). He made progress towards goals but began to have more difficulty with weightbearing during ADLs. CT scan reveled R total hip was dislocated. Therapy was placed on hold and pt transferred to [facility] under Dr Fletcher's care. On admission to the ARU, he was modified independent with eating, needed setup for grooming and upper body dressing, needed mod assist with bathing, and was dependant or required assist fo two for toileting/toilet transfers and lower body dressing. Most recent therapy noted indicated at near discharge he was modified independent with eating and grooming, needed setup for upper body dressing, min assist lower body dressing, bathing and toileting/toilet transfers. See tx plan for goals met. DC OT Decreased Activ Tolerance, Decreased Safety Aware, Decreased UE Strength, Dependent Transfers, Impaired Bed Mobility, Impaired Coordination (R UE), Impaired Funct Balance, Impaired Self-Care Skills, Restricted Funct UE ROM PT Lead Javascript Engineer Goals Lead Javascript Engineer Goals PT Lead Javascript Engineer Goals Time Frame: Oct 25, 2017 Transfers (B,C,W/C) (FIM): 5 Roll Left to Right (QC): 4 Sit to Lying (QC): 4 Lying-Sitting on Side/Bed(QC): 4 Sit to Stand (QC): 4 Chair/Dhu-hd-Qeqwl Xfer(QC): 4 Car Transfer (QC): 4 Does the Patient Walk: Yes Gait (FIM): 5 Distance: 200 feet Walk 10 feet (QC): 4 Walk 10ft-Uneven Surface(QC): 4 Walk 50ft with 2 Turns (QC): 4 Walk 150 ft (QC): 4 Gait Level of Assist: 5 Gait Assistive Device: Walker Platform Does the Pt use WC or Scooter?: Yes Wheelchair (FIM): 6 Distance: 200 feet Wheelchair Level of Assist: 6 Wheel 50 feet with 2 turns (QC: 6 Stairs (FIM): 2 # of Steps: 4 1 Step (curb) (QC): 4 4 Steps (QC): 4 12 Steps (QC): 88 Stairs Level Of Assist: 5 Picking up an Object (QC): 88 OT Lead Javascript Engineer Goals Lead Javascript Engineer Goals Time Frame: Oct 25, 2017 Eating (FIM): 6 (met) Eating (QC): 6 (met) Oral Hygiene (QC): 6 (met) Grooming(FIM): 6 (met) Bathing(FIM): 6 (not met) Shower/Bathe Self (QC): 6 (not met) Upper Body Dressing(FIM): 6 (not met) Upper Body Dressing (QC): 6 (not met) Lower Body Dressing(FIM): 6 (not met) Lower Body Dressing (QC): 6 (not met) On/Off Footwear (QC): 6 (not met) Toileting(FIM): 6 (not met) Toileting Hygiene (QC): 6 (not met) Transfers (B,C,W/C) (FIM): 6 (not met) Toilet/Commode Transfer(FIM): 6 (not met) Toilet/Commode Transfer (QC): 6 (not met) Shower Transfer(FIM): 6 (not met) Comprehension(FIM): 5 (NOT MET) Expression (FIM): 5 (NOT MET) Social Interaction(FIM): 6 (MET) Problem Solving(FIM): 5 (NOT MET) Memory(FIM): 6 (NOT MET) Additional Goals: 1-Demonstrate ADL Tasks, 2-Verbalize Understanding, 3- ImproveStrength/Gregorio 1=Demonstrate adherence to instructed precautions during ADL tasks. 2=Patient will verbalize/demonstrate understanding of assistive devices/ modifications for ADL. 3=Patient will improve strength/tolerance for activity to enable patient to perform ADL's. Speech Lead Javascript Engineer Goals Lead Javascript Engineer Goals 1. The patient will demonstrate improved expressive communication for increased function and safety with ADL's in the least restrictive setting. Time Frame: One Week Comprehension: 5 (NOT MET) Expression: 5 (NOT MET) Social Interaction: 6 (MET) Problem Solvin (NOT MET) Memory: 6 (NOT MET) TERE DEL CASTILLO OT Oct 23, 2017 16:42
--- NOTE | 2017-10-23 18:15 | PM & R (SOAP) Progress Note ---
Subjective Time Seen by Provider: 12:00 Subjective/Events-last exam Contacted by RN earlier today [facility] has accepted patient for F/U Dislocated RT ADAM See orders Patient will have f/u with DR Fletcher orthopedics Current meds reviewed Objective Exam Last Set of Vital Signs Vital Signs Date Time Temp Pulse Resp B/P (MAP) Pulse Ox O2 Delivery O2 Flow Rate FiO2 10/23/17 14:03 55 18 151/79 97 Room Air 10/23/17 04:15 96.8 Capillary Refill : Less Than 3 Seconds I&O Intake and Output 10/23/17 00:00 Intake Total 1442 ml Output Total 1275 ml Balance 167 ml Intake Oral 1442 ml Output Urine Total 1275 ml # Voids 1 # Bowel Movements 1 General: Alert, Oriented X3, Cooperative, No Acute Distress HEENT: Atraumatic, PERRLA, EOMI, Mucous Memb Moist/[place], Other (mild expressive aphasia) Neck: Supple, No JVD Lungs: Clear to Auscultation Heart: Regular Rate Abdomen: Normal Bowel Sounds, Soft, No Tenderness Extremities: No Edema Neuro: Other (as per above) Results Lab Laboratory Tests 10/20/17 20:16: Glucometer 227H 10/21/17 05:43: Glucometer 104 10/21/17 11:23: Glucometer 189H 10/21/17 16:12: Glucometer 206H 10/21/17 20:25: Glucometer 299H 10/22/17 05:27: Glucometer 95 10/22/17 11:32: Glucometer 273H 10/22/17 16:17: Glucometer 161H 10/22/17 20:29: Glucometer 239H 10/23/17 05:59: Glucometer 98 10/23/17 11:04: Glucometer 259H Assessment/Plan Assessment Dislocated Rt ADAM s/p fall Prior RT TKR DR Dimas [facility] approx 2007 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 on remicade q 6 months Plan Discharge today to [facility] [place] F/U with DR Fletcher as per above See orders. MELANIE AGUILA MD Oct 23, 2017 18:15
--- NOTE | 2017-10-23 20:02 | CONSULTATION REPORT ---
DATE OF SERVICE: ADDENDUM An addendum to a consult that was carried out on 10/18/2017. The confirmation number on the previous report was [id number] and this was dictated on 10/18/2017 at approximately 1:40. The consultation was for right knee pain and weakness. The patient was examined and the x-rays revealed no acute changes or hardware failure involving his total knee component prosthesis and the pathology was thought to likely be neurologic in nature. The patient had localized his pain to the anterolateral aspect of the knee at the level of the patellar tendon. The patient was making very slow progress in his rehab and strengthening. He, later during his admission, underwent a CT scan of the lumbar spine which showed some suspicious findings involving his right hip total joint component. Due to these findings, he underwent two views of the right hip from [facility] on 10/20/2017, which revealed a dislocation of the hip components. The on-call orthopedist was then notified who to my knowledge requested that Dr. Gregorio's service be contacted. After visiting with members of the rehab staff, we offered to proceed with closed reduction of the right hip and due to scheduling conflicts, this was offered to be carried out on 10/22/2017. This option was discussed with the family and again per the rehab staff, they declined treatment by myself and Dr. Gregorio, and reported that they would like to proceed with a consultation with Dr. Yony Fletcher. We were notified of this decision on Monday evening and so we did not proceed with any sort of plans to proceed with general anesthetic and right hip closed reduction. Again, thank you for the consultation. Job ID: [id number] DocumentID: [id number] Dictated Date: 10/23/2017 13:07:46 Loss Control Representative Date: 10/23/2017 16:34:23 Dictated By: KOURTNEY HILL
== END 2017-10-23 13:00 | disposition short-term general hospital (02) | DRG 949 ==
PROVIDERS: ADMIT Physical Medicine & Rehabilitation; ATTEND Physical Medicine & Rehabilitation
DX: S76.111D Strain of right quadriceps muscle, fascia and tendon, subsequent encounter (principal); I69.351 Hemiplegia and hemiparesis following cerebral infarction affecting right dominant side; I69.320 Aphasia following cerebral infarction; T84.020A Dislocation of internal right hip prosthesis, initial encounter; E11.9 Type 2 diabetes mellitus without complications; I10 Essential (primary) hypertension; M17.12 Unilateral primary osteoarthritis, left knee; G40.909 Epilepsy, unspecified, not intractable, without status epilepticus; M45.9 Ankylosing spondylitis of unspecified sites in spine; K59.00 Constipation, unspecified; F17.210 Nicotine dependence, cigarettes, uncomplicated; M06.9 Rheumatoid arthritis, unspecified; N28.9 Disorder of kidney and ureter, unspecified; Z96.651 Presence of right artificial knee joint; Z79.4 Long term (current) use of insulin; W19.XXXD Unspecified fall, subsequent encounter
CPT/HCPCS: 36415; 70450; 72131; 73502; 73562; 80048; 80053; 82962; 85025